=== PATIENT | female | born 1980 | race Caucasian/White ===

== ENCOUNTER 2020-09-17 22:00 | Emergency (ER) | payer MEDICARE, MEDICAID, SELFPAY ==
[2020-09-17 22:01] VITALS: BP 127/78; PULSE 80; RESP 18; TEMP 36.7; O2SAT 99
[2020-09-17 22:08] VITALS: BP 127/78; PULSE 80; RESP 18; TEMP 36.7; O2SAT 99
--- NOTE | 2020-09-17 22:15 | PC.NURSE ---
pt c/o pain to left wrist with movement without any known injury. pt has full ROM of left wrist, but reports pain is 10/10 . no s/s of distress. no visible discoloration, edema, or deformity noted to left wrist or hand by this RN. pt reports she has been taking 400mg ibuprofen without relief and has not told her pcp about her wrist pain. awaiting further instructions.
--- NOTE | 2020-09-17 22:34 | ED.UPPEXIN ---
HPI - Extremity Injury (Upper) General Chief Complaint: Extremity Injury, Upper Stated Complaint: left wrist pain Time Seen by Provider: 09/17/20 22:29 Source: patient Mode of arrival: ambulatory Limitations: no limitations History of Present Illness HPI narrative: Patient is a 39-year-old female complaining of left wrist pain, 6 out of 10, aching, worse with movement that started 4 days ago. Patient denies any direct injury to the wrist. Patient denies any redness or swelling. Related Data Allergies Allergy/AdvReac Type Severity Reaction Status Date / Time Penicillins Allergy Mild Unknown Verified 09/17/20 22:04 Review of Systems Review of Systems: All systems reviewed & are unremarkable except as noted in HPI and below PMFSH Past Medical History Medical History Anxiety Bipolar disorder Kidney stone Manic depressive disorder Sleep disorder UTI (urinary tract infection) Surgical History Surgical History History of cervical biopsy Social History Social History Additional smoking assessment comments: 1/2 PPD Comments Social history: 1/2 pack/day smoker, no EtOH or drug use Family history: Noncontributory Exam Const: General: no acute distress and alert Orientation/consciousness: patient oriented x3 HENMT: Head: normal to inspection Extrem: General: normal to inspection and no clubbing, cyanosis or edema Other: Negative for any wrist deformity, swelling or redness. Pain on palpation of the wrist. Pain on range of motion of the wrist. Neurovascular is intact Course Vital Signs Vital signs: Vital Signs Temperature 36.7 C 09/17/20 22:01 Pulse Rate 80 09/17/20 22:01 Respiratory Rate 18 09/17/20 22:01 Blood Pressure 127/78 09/17/20 22:01 Pulse Oximetry 99 09/17/20 22:01 Temperature 36.7 C 09/17/20 22:08 Pulse Rate 80 09/17/20 22:08 Respiratory Rate 18 09/17/20 22:08 Blood Pressure 127/78 09/17/20 22:08 Pulse Oximetry 99 09/17/20 22:08 Discharge Plan Discharge Clinical Impression: Sprain and strain of wrist Patient Disposition: Home, Self-Care Condition: Stable Instructions: Wrist Sprain (ED) Prescriptions: No Action ondansetron HCl [Zofran] 4 mg tablet 4 mg PO Q6H PRN (Reason: nausea and vomiting) Qty: 10 RF: 0 Follow-up/Referrals: PHYSICIAN,SENIOR QUALITY ANALYST [Primary Care Provider] - Time of Disposition: 22:37
[2020-09-17] MEDS: IBUPROFEN 400 MG TABLET 800 MG PO (23:29)
== END 2020-09-17 23:31 | disposition home or self-care (01) ==
PROVIDERS: Emergency Provider Emergency Medicine
DX: S63.502A Unspecified sprain of left wrist, initial encounter (principal); F41.9 Anxiety disorder, unspecified; F31.9 Bipolar disorder, unspecified; Z87.442 Personal history of urinary calculi; X58.XXXA Exposure to other specified factors, initial encounter
CPT/HCPCS: 99282; A9270

== ENCOUNTER 2021-06-02 23:18 | Emergency (ER) | payer OTHER, SELFPAY ==
[2021-06-02 23:29] VITALS: BP 128/80; PULSE 89; RESP 18; TEMP 36.7; O2SAT 100
[2021-06-03 02:15] VITALS: BP 124/50; PULSE 82; RESP 18; TEMP 37; O2SAT 98
[2021-06-03] MEDS: SODIUM CHLORIDE 0.9% IV 1,000 ML 999 ML IV CONT (02:58)
[2021-06-03 03:12] LABS: Basophils Absolute Auto 0.1 K/mm3 (0.0-0.1); Basophils Percent Auto 0.9 % (0.2-1.2); Eosinophils Percent Auto 0.2 % (0-4.4); Hemoglobin 14.1 g/dL (12.0-15.0); Immature Granulocyte Absolute 0.08 K/mm3 (0.00-0.031); Immature Granulocyte Percent A 0.7 % (0-0.5); Lymphocytes Absolute Auto 1.53 K/mm3 (0.9-3.2); Lymphocytes Percent Auto 12.8 % (18.3-44.2); Mean Corpuscular HGB Conc 33.6 g/dl (32-36); Mean Corpuscular Hemoglobin 29.8 pg (26-34); Mean Corpuscular Volume 88.8 fl (80-100); Mean Platelet Volume 8.7 fl (7.4-10.4); Monocytes Absolute Auto 0.3 K/mm3 (0.1-0.6); Monocytes Percent Auto 2.4 % (2.6-8.5); Neutrophils Absolute Auto 9.9 K/mm3 (1.3-6.7); Platelet Count Result 393 k/mm3 (150-375); Red Blood Count 4.73 M/mm3 (4.2-5.4); Red Cell Distribution Width 12.8 % (11.5-14.5); White Blood Count 11.9 K/mm3 (4.5-10.0)
[2021-06-03 03:19] LABS: Add Urine Microscopic? YES; Appearance Urine Clear (Clear); Bacteria Urine Trace /hpf; Bilirubin Urine Negative (Negative); Blood Urine 2+ (Negative); Color Urine Yellow (Yellow); Glucose Urine UA Negative (Negative); Ketones Urine Negative (Negative); Leukocyte Esterase Ur Negative LEU/UL (Negative); Mucus Urine Heavy /lpf; Nitrate Urine Negative (Negative); Protein Urine Negative (Negative); Specific Grav Ur 1.013 (1.001-1.035); Squamous Epithelial Cell Urine Few /hpf (Few); Urobilinogen Urine Negative mg/dL (<2.0); WBC Urine 0-3 /hpf
[2021-06-03] MEDS: PROCHLORPERAZINE EDISYLATE 10 MG/2 ML VIAL IV PUSH (03:20)
[2021-06-03] MEDS: diphenhydrAMINE HCl INJ 50 MG/ML VIAL 25 MG IV PUSH (03:20)
[2021-06-03] MEDS: KETOROLAC 15 MG/ML VIAL (*BKC) IV PUSH (03:20)
--- NOTE | 2021-06-03 03:21 | ED.HA ---
HPI - Headache General Chief Complaint: Headache Stated Complaint: headache Time Seen by Provider: 06/03/21 02:16 Source: patient History of Present Illness HPI Narrative: Patient presents with headache. She has had a headache for the past day. Reports has had increasing headaches over the past couple years last time she had a headache like this was 1 to 2 weeks ago resolved with rest at home this 1 did not appear to be resolving so she came to the ER for evaluation. Headache was slow in onset getting progressively worse she is attempted Tylenol and ice packs without relief. She denies any focal numbness or weakness denies any trauma or recent spinal instrumentation. She reports her headache is worsened by bright light and loud noises. Denies history of IV drug use Related Data Allergies Allergy/AdvReac Type Severity Reaction Status Date / Time Penicillins Allergy Mild Unknown Verified 06/02/21 23:33 Review of Systems Review of Systems: CONSTITUTIONAL: Denies fever, chills, or sweats. EYES: Denies visual changes, redness, or discharge. ENT: Denies rhinorrhea, congestion, sore throat, or otalgia. CARDIOVASCULAR: Denies chest pain, palpitations, or edema. RESPIRATORY: Denies cough or dyspnea. GASTROINTESTINAL: Denies abdominal pain,vomiting, or diarrhea. GENITOURINARY: Denies dysuria or hematuria. SKIN: Denies rash or itching. MUSCULOSKELETAL: Denies back pain, joint pain, or myalgia. NEUROLOGIC: Denies numbness, dizziness, or weakness. PSYCHIATRIC: Denies anxiety or depression. All systems reviewed & are unremarkable except as noted in HPI and below PMFSH Past Medical History Medical History Anxiety Bipolar disorder Kidney stone Manic depressive disorder Sleep disorder UTI (urinary tract infection) Surgical History Surgical History History of cervical biopsy Social History Social History Additional smoking assessment comments: 1/2 PPD Exam Narrative: GENERAL: Well-appearing, well-nourished, and in no acute distress. HEAD: Normocephalic, atraumatic. EYES: PERRLA and EOMI. ENT: Nares clear, no rhinorrhea or epistaxis. Mucous membranes moist. NECK: Supple. No masses. No JVD CHEST: Clear to auscultation. No respiratory distress. No wheezes rales or rhonchi HEART: Regular rate and rhythm. No murmur heard. Normal peripheral pulses. ABDOMEN: Soft, nontender, nondistended, normal active bowel sounds. EXTREMITIES: Normal range of motion. No edema. SKIN: Warm, dry, no rash. NEURO: Cranial nerves II through XII are intact patient has 5 out of 5 strength in all extremities sensation intact to light touch in all extremities alert and oriented x3. PSYCH: Normal mood and affect. Course Reevaluation(s) Reevaluation #1: Patient is resting comfortably reports feeling much improved patient is comfortable managing her symptoms at home Date: 06/03/21 Time: 04:34 Vital Signs Vital signs: Vital Signs Temperature 36.7 C 06/02/21 23:29 Pulse Rate 89 06/02/21 23:29 Respiratory Rate 18 06/02/21 23:29 Blood Pressure 128/80 06/02/21 23:29 Pulse Oximetry 100 06/02/21 23:29 Temperature 37.0 C 06/03/21 02:15 Pulse Rate 96 06/03/21 04:50 Respiratory Rate 18 06/03/21 04:50 Blood Pressure 134/76 06/03/21 04:50 Pulse Oximetry 99 06/03/21 04:50 MDM - Headache MDM Narrative Medical decision making narrative: H&P as above, vss, pt looks clinically well, exam without focal neurological deficits, labs clinically unremarkable, labs/img considered, symptomatic relief available as needed, on reevaluation pt continues to looks clinically well. Suspect migraine, dns intracranial hemorrhage, meningitis, encephalitis. plan to tx/monitor as op w/ pcm f/u findings/plan discussed with pt, pt agree/comfortable with plan, return precautions given, medica
[2021-06-03 03:23] LABS: Alanine Aminotransferase 20 U/L (4-35); Albumin Level 4.6 g/dL (3.5-5.1); Alkaline Phosphatase 83 U/L (38-126); Anion Gap 7 mmol/L (8-16); Aspartate Amino Transferase 24 U/L (14-36); Bilirubin,Total 0.6 mg/dL (0.2-1.3); Blood Urea Nitrogen 11 mg/dL (7-17); Calcium 9.3 mg/dL (8.4-10.2); Carbon Dioxide 23 mmol/L (22-30); Chloride 106 mmol/L (98-107); Estimated CRCL calculation 94 ml/min; Estimated Glomerular Filt Rate > 60; Glucose 129 mg/dL (65-110); Potassium 3.9 mmol/L (3.4-5.0); Sodium 136 mmol/L (137-145)
[2021-06-03 04:50] VITALS: BP 134/76; PULSE 96; RESP 18; O2SAT 99
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
== END 2021-06-03 04:45 | disposition home or self-care (01) ==
PROVIDERS: Emergency Provider Emergency Medicine
DX: R51.9 Headache, unspecified (principal); G47.9 Sleep disorder, unspecified; Z87.442 Personal history of urinary calculi; Z87.440 Personal history of urinary (tract) infections; F17.210 Nicotine dependence, cigarettes, uncomplicated
CPT/HCPCS: 36415; 80053; 81001; 85025; 96361; 96365; 96375; 99284; J0131; J0780; J1200; J1885; J7030

== ENCOUNTER 2021-06-03 05:25 | Emergency (ER) | payer OTHER, SELFPAY ==
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
[2021-06-03 05:23] VITALS: BP 142/93; PULSE 85; RESP 16; TEMP 36.1; O2SAT 97
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
[2021-06-03 07:12] VITALS: BP 117/70; PULSE 97; RESP 18; O2SAT 100
== END 2021-06-03 07:14 | disposition home or self-care (01) ==
PROVIDERS: Emergency Provider Emergency Medicine
DX: S02.2XXA Fracture of nasal bones, initial encounter for closed fracture (principal); S00.31XA Abrasion of nose, initial encounter; Z87.442 Personal history of urinary calculi; Z87.440 Personal history of urinary (tract) infections; G47.9 Sleep disorder, unspecified; M47.812 Spondylosis without myelopathy or radiculopathy, cervical region; V47.6XXA Car passenger injured in collision with fixed or stationary object in traffic accident, initial encounter
CPT/HCPCS: 70450; 70486; 72125; 99284

== ENCOUNTER 2022-11-09 00:54 | Emergency (ER) | payer OTHER, SELFPAY ==
[2022-11-09 00:58] VITALS: BP 152/89; PULSE 76; RESP 20; TEMP 36.4; O2SAT 100
--- NOTE | 2022-11-09 01:09 | ED.GENADULT ---
HPI - General Adult General Chief complaint: Headache Stated complaint: CUADRA Time Seen by Provider: 11/09/22 01:05 History of Present Illness HPI narrative: Patient 41-year-old female who presents emergency department with chief complaint of headache patient reports that around 3 PM she started having a headache today reports that the light bothers her eyes and reports she is having nausea patient reports that she has no weakness in her arms or legs denies changes in vision denies focal neurological deficit. The patient reports this is not the worst headache of her life reports that she has had worse headaches that were treated with medications at our facility previously Related Data Allergies Allergy/AdvReac Type Severity Reaction Status Date / Time Penicillins Allergy Mild Unknown Verified 11/09/22 01:01 Review of Systems Review of Systems: A 10 system review of systems was completed on the patient and is negative except for what is stated in the HPI. Nursing and ancillary documentation was reviewed. [facility] Past Medical History Medical History Anxiety Bipolar disorder Kidney stone Manic depressive disorder Sleep disorder UTI (urinary tract infection) Surgical History Surgical History History of cervical biopsy Social History Social History Additional smoking assessment comments: 1/2 PPD Exam Narrative: GENERAL: Well-appearing, well-nourished, and in no acute distress. HEAD: Normocephalic, atraumatic. EYES: PERRLA and EOMI. ENT: Nares clear, no rhinorrhea or epistaxis. Mucous membranes moist. NECK: Supple. CHEST: Clear to auscultation. No respiratory distress. HEART: Regular rate and rhythm. No murmur heard. Normal peripheral pulses. ABDOMEN: Soft, nontender, nondistended, normal active bowel sounds. EXTREMITIES: Normal range of motion. No edema. SKIN: Warm, dry, no rash. NEURO: No focal deficits. Alert and oriented x3. PSYCH: Normal mood and affect. Course Vital Signs Vital signs: Vital Signs Temperature 36.4 C L 11/09/22 00:58 Pulse Rate 76 11/09/22 00:58 Respiratory Rate 20 11/09/22 00:58 Blood Pressure 152/89 H 11/09/22 00:58 Pulse Oximetry 100 11/09/22 00:58 Oxygen Delivery Room Air 11/09/22 00:58 Temperature 36.4 C L 11/09/22 00:58 Pulse Rate 76 11/09/22 00:58 Respiratory Rate 20 11/09/22 00:58 Blood Pressure 152/89 H 11/09/22 00:58 Pulse Oximetry 100 11/09/22 00:58 Oxygen Delivery Room Air 11/09/22 00:58 Medical Decision Making [facility] Narrative Medical decision making narrative: Differential diagnosis includes migraine headache, tension headache, Patient's exam does not show any focal neurological deficits therefore the risk of subarachnoid hemorrhage or intracranial hemorrhage is extremely low at this point is also not the patient's worst headache of her life and reports is similar to whenever she has been treated for migraines in the past patient will receive a standard migraine cocktail of Compazine Benadryl Toradol and IV fluids Vital Signs Vital Signs: Vital Signs Temperature 36.4 C L 11/09/22 00:58 Pulse Rate 76 11/09/22 00:58 Respiratory Rate 20 11/09/22 00:58 Blood Pressure 152/89 H 11/09/22 00:58 Pulse Oximetry 100 11/09/22 00:58 Oxygen Delivery Room Air 11/09/22 00:58 Temperature 36.4 C L 11/09/22 00:58 Pulse Rate 76 11/09/22 00:58 Respiratory Rate 20 11/09/22 00:58 Blood Pressure 152/89 H 11/09/22 00:58 Pulse Oximetry 100 11/09/22 00:58 Oxygen Delivery Room Air 11/09/22 00:58 Discharge Plan Discharge Clinical Impression: Headache Patient Disposition: Home, Self-Care Condition: Stable Instructions: Antibiotic Form, Acute Headache (ED) Prescriptions: No Action ondansetron H
[2022-11-09] MEDS: SODIUM CHLORIDE 0.9% IV 1,000 ML 999 ML IV CONT (01:19)
[2022-11-09] MEDS: diphenhydrAMINE HCl INJ 50 MG/ML VIAL IV PUSH (01:21)
[2022-11-09] MEDS: KETOROLAC 30 MG/ML VIAL (*BKC) IV PUSH (01:21)
[2022-11-09] MEDS: PROCHLORPERAZINE EDISYLATE 10 MG/2 ML VIAL IV PUSH (01:21)
== END 2022-11-09 02:30 | disposition home or self-care (01) ==
PROVIDERS: Emergency Provider Emergency Medicine
DX: R51.9 Headache, unspecified (principal); F17.210 Nicotine dependence, cigarettes, uncomplicated
CPT/HCPCS: 96361; 96374; 96375; 99284; J0780; J1200; J1885; J7030

== ENCOUNTER 2024-01-02 23:23 | Emergency (ER) | payer OTHER, SELFPAY ==
[2024-01-02 23:29] VITALS: BP 146/85; PULSE 89; RESP 18; TEMP 36.8; O2SAT 98
--- NOTE | 2024-01-03 00:14 | ED.HA ---
HPI - Headache General Chief Complaint: Headache Stated Complaint: headache Time Seen by Provider: 01/02/24 23:59 Source: patient Mode of arrival: ambulatory Limitations: no limitations History of Present Illness HPI Narrative: Patient is a 43-year-old female report of a migraine headache. Patient reports she developed a headache around 1:00 p.m. today. She states she took Tylenol around that time but denied improvement. The headache became more intense around 8:00 p.m.. Unable to find any relief which prompted her to present here. She does have history of migraines and states current headache feels similar. Reports nausea, vomiting, photophobia, phonophobia. Denied neck pain/stiffness, fevers. Denies cough or cold symptoms. Denies numbness, weakness, confusion, dizziness. Related Data Allergies Allergy/AdvReac Type Severity Reaction Status Date / Time Penicillins Allergy Mild Unknown Verified 11/09/22 01:01 Review of Systems Review of Systems: All systems reviewed & are unremarkable except as noted in HPI. All systems reviewed & are unremarkable except as noted in HPI and below PMFSH Past Medical History Medical History Anxiety Bipolar disorder Kidney stone Manic depressive disorder Sleep disorder UTI (urinary tract infection) Surgical History Surgical History History of cervical biopsy Social History Social History Additional smoking assessment comments: 1/2 PPD Exam Narrative: GENERAL: Well appearing, well-nourished, non-toxic, in no acute distress. HEAD: Normocephalic, atraumatic. EYES: PERRL/EOMI, conjunctivae clear bilaterally. No nystagmus. NECK: Supple. No meningeal signs. RESPIRATORY: Airway patent, respirations nonlabored. Clear to auscultation bilaterally, no rales, rhonchi, wheezing. CARDIOVASCULAR: Regular rate and rhythm MUSCULOSKELETAL: Moves all extremities. No gross deformities. SKIN: Warm, dry, normal color. No rashes. NEURO: A&O X3. Speech clear. Follows commands. CN II-XII intact. Sensation grossly intact. Steady gait. No ataxic movements. PSYCHIATRIC: Appropriate mood and affect. Normal interaction. Course Vital Signs Vital signs: Vital Signs Temperature 98.2 F 01/02/24 23:29 Pulse Rate 89 01/02/24 23:29 Respiratory Rate 18 01/02/24 23:29 Blood Pressure 146/85 H 01/02/24 23:29 Pulse Oximetry 98 01/02/24 23:29 Oxygen Delivery Room Air 01/02/24 23:29 Temperature 98.2 F 01/02/24 23:29 Pulse Rate 89 01/02/24 23:29 Respiratory Rate 18 01/02/24 23:29 Blood Pressure 146/85 H 01/02/24 23:29 Pulse Oximetry 98 01/02/24 23:29 Oxygen Delivery Room Air 01/02/24 23:29 MDM - Headache MDM Narrative Medical decision making narrative: Patient's headache was not sudden in onset or maximal in severity. There are no focal neurological deficits on exam. Subarachnoid hemorrhage is felt to be unlikely at this time. There is no history of fever and neck is supple on evaluation without meningeal signs. Meningitis is felt to be unlikely. No traumatic history or signs of trauma on evaluation. No vision changes or ocular signs of acute glaucoma. Patient feeling much better after migraine cocktail. Patient's headache is felt to be benign cephalgia and reasonable for further outpatient management. Advised patient to follow with PCP for further evaluation. Advised to continue Tylenol/ibuprofen at home, low light/low stimulus environment, stay well hydrated. She was given return precautions. She agrees with plan feels comfortable w/ discharge home. Discharged in stable condition. Medical Records Attestation: I reviewed the patient's medical records. Discharge Plan Discharge Clinical Impression: Migraine Qualifiers: Migraine type: unspecified Status migrainosus presence: dyan
[2024-01-03] MEDS: SODIUM CHLORIDE 0.9% IV 1,000 ML 999 ML IV CONT (00:34)
[2024-01-03] MEDS: ACETAMINOPHEN 500 MG TABLET 1000 MG PO (00:35)
[2024-01-03] MEDS: diphenhydrAMINE HCl INJ 50 MG/ML VIAL 25 MG IV PUSH (00:35)
[2024-01-03] MEDS: METOCLOPRAMIDE HCL INJ 10 MG/2 ML VIAL IV PUSH (00:35)
[2024-01-03] MEDS: KETOROLAC 30 MG/ML VIAL (*BKC) IV PUSH (00:35)
[2024-01-03 03:20] VITALS: BP 136/80; PULSE 80; RESP 18; O2SAT 100
[2024-01-03] MEDS: dexAMETHasone SOD PHOS INJ 10 MG/ML 1 ML VIAL IV PUSH (03:23)
== END 2024-01-03 03:25 | disposition home or self-care (01) ==
PROVIDERS: Emergency Provider Physician Assistant
DX: G43.909 Migraine, unspecified, not intractable, without status migrainosus (principal); F41.9 Anxiety disorder, unspecified; F31.9 Bipolar disorder, unspecified; Z87.442 Personal history of urinary calculi; Z87.440 Personal history of urinary (tract) infections
CPT/HCPCS: 96361; 96374; 96375; 99284; A9270; J1100; J1200; J1885; J2765; J7030

== ENCOUNTER 2024-04-07 23:07 | Emergency (ER) | payer OTHER, SELFPAY ==
[2024-04-07 23:32] VITALS: BP 148/91; PULSE 100; RESP 16; TEMP 36.6; O2SAT 100
[2024-04-08 03:38] VITALS: BP 140/74; PULSE 88; RESP 20; TEMP 36.6; O2SAT 98
--- NOTE | 2024-04-08 03:41 | PC.NURSE ---
Pt c/o liquid diarrhea and a fever on and off since Wednesday. She states starting today she has had a headache, nausea and she just feels sick
--- NOTE | 2024-04-08 04:16 | PC.NURSE ---
Attempted to insert IV and obtain blood work. On first attempt vein blew. Pt states she wants her friend in the room at the bedside before she is stuck again. Pt waiting for friend to come back to room at this time
--- NOTE | 2024-04-08 04:33 | ED.GENADULT ---
HPI - General Adult General Chief complaint: Headache Stated complaint: headache, n/v Time Seen by Provider: 04/08/24 03:53 History of Present Illness HPI narrative: Patient 33-year-old female presents emergency department with chief complaint of headache. Patient reports that last couple days she has had headache hot flashes and nausea the patient also reports that she has had some chills and body aches reports that she has been more anxious than normal patient has prior history of bipolar disorder anxiety Related Data Allergies Allergy/AdvReac Type Severity Reaction Status Date / Time Penicillins Allergy Mild Unknown Verified 11/09/22 01:01 Review of Systems Review of Systems: A 10 system review of systems was completed on the patient and is negative except for what is stated in the HPI. Nursing and ancillary documentation was reviewed. [facility] Past Medical History Medical History Anxiety Bipolar disorder Kidney stone Manic depressive disorder Sleep disorder UTI (urinary tract infection) Surgical History Surgical History History of cervical biopsy Social History Social History Additional smoking assessment comments: 1/2 PPD Exam Narrative: GENERAL: Well-appearing, well-nourished, and in no acute distress. HEAD: Normocephalic, atraumatic. EYES: PERRLA and EOMI. ENT: Nares clear, no rhinorrhea or epistaxis. Mucous membranes moist. NECK: Supple. CHEST: Clear to auscultation. No respiratory distress. HEART: Regular rate and rhythm. No murmur heard. Normal peripheral pulses. ABDOMEN: Soft, nontender, nondistended, normal active bowel sounds. EXTREMITIES: Normal range of motion. No edema. SKIN: Warm, dry, no rash. NEURO: No focal deficits. Alert and oriented x3. PSYCH: Normal mood and affect. Course Vital Signs Vital signs: Vital Signs Temperature 36.6 C 04/07/24 23:32 Pulse Rate 100 04/07/24 23:32 Respiratory Rate 16 04/07/24 23:32 Blood Pressure 148/91 H 04/07/24 23:32 Pulse Oximetry 100 04/07/24 23:32 Oxygen Delivery Room Air 04/07/24 23:32 Temperature 36.6 C 04/08/24 03:38 Pulse Rate 88 04/08/24 03:38 Respiratory Rate 20 04/08/24 03:38 Blood Pressure 140/74 04/08/24 03:38 Pulse Oximetry 98 04/08/24 03:38 Oxygen Delivery Room Air 04/07/24 23:32 Medical Decision Making MDM Narrative Medical decision making narrative: Differential diagnosis includes upper respiratory infection, viral illness, migraine headache COVID flu RSV were negative Laboratory studies were obtained on the patient showed normal CBC normal cm COVID flu RSV were negative Vital Signs Vital Signs: Vital Signs Temperature 36.6 C 04/07/24 23:32 Pulse Rate 100 04/07/24 23:32 Respiratory Rate 16 04/07/24 23:32 Blood Pressure 148/91 H 04/07/24 23:32 Pulse Oximetry 100 04/07/24 23:32 Oxygen Delivery Room Air 04/07/24 23:32 Temperature 36.6 C 04/08/24 03:38 Pulse Rate 88 04/08/24 03:38 Respiratory Rate 20 04/08/24 03:38 Blood Pressure 140/74 04/08/24 03:38 Pulse Oximetry 98 04/08/24 03:38 Oxygen Delivery Room Air 04/07/24 23:32 Lab Data 04/08/24 05:05 04/08/24 05:05 Labs: Lab Results 04/08/24 Range/Units 05:05 WBC 10.0 (4.5-10.0) K/mm3 RBC 5.39 (4.2-5.4) M/mm3 Hgb 15.6 H (12.0-15.0) g/dL Hct 46.9 (37.0-47.0) % MCV 87.0 (80-100) fl MCH 28.9 (26-34) pg MCHC 33.3 (32-36) g/dl RDW 12.3 (11.5-14.5) % Plt Count 343 (150-375) k/mm3 MPV 9.1 (7.4-10.4) fl Immature Gran % (Auto) 0.4 (0-0.5) % Neut % (Auto) 79.3 H (45.5-73.1) % Lymph % (Auto) 13.5 L (18.3-44.2) % [place] % (Auto) 6.0 (2.6-8.5) % Eos % (Auto) 0.1 (0-4.4) % Baso % (Auto) 0.7 (0.2-1.2) % Lymph # (Auto) 1.35 (0.9-3.2) K/mm3 [place] # (Auto) 0.6 (0.1-0.6) K/mm3 Eos # (Auto) 0.0 (0-0.3) K/mm3 Baso # (Auto) 0.1 (0.0-0.1) K/mm3 Abs Immat Gran (auto) 0.04 H (0.00-0.031) K/mm3 Absolute Neuts (auto) 7.9 H (1.3-6.7) K/mm3 Absolute Nucleated RBC 0.000 (0.0-0.012) K/mm3 Nucleated RBC % 0.0 (0.0-0.2) % Sodium 138 (137-145) mmol/L Potassium 3.8 (3.4-5.0) mmol/L Chloride 102 (98-107) mmol/L Carbon Dioxide 27 (22-30) mmol/L Anion Gap 9 (4-12) mmol/L BUN 11 (7-17) mg/dL Creatinine 0.80 (0.7-1.0) mg/dL Estim Creat Clear Calc 70 ml/min Estimated GFR > 60 (59 - ) Glucose 133 H (65-110) mg/dL Calcium 9.6 (8.4-10.2) mg/dL Total Bilirubin 0.6 (0.2-1.3) mg/dL AST 25 (14-36) U/L ALT 23 (6-35) U/L Alkaline Phosphatase 123 (38-126) U/L Total Protein 9.0 H (6.3-8.2) g/dL Albumin 4.9 (3.5-5.1) g/dL Lipase 72 (23-300) U/L Influenza A (RT-PCR) Negative (Negative) Influenza B (RT-PCR) Negative (Negative) RSV (RT-PCR) Negative (Negative) SARS-CoV-2 RNA (RT-PCR) Negative (Negative) Discharge Plan Discharge Clinical Impression: Headache Patient Disposition: Home, Self-Care Condition: Stable Instructions: Antibiotic Form, Acute Headache (ED) Prescriptions: No Action ondansetron HCl [Zofran] 4 mg tablet 4 mg PO Q6H PRN (Reason: nausea and vomiting) Qty: 10 0RF ondansetron 4 mg tablet,disintegrating 4 mg PO Q8H PRN (Reason: nausea and vomiting) Qty: 15 0RF Follow-up/Referrals: Leo Flores MD [Physician] - UNKNOWN,DOCTOR [Primary Care Provider] - Time of Disposition: 06:12
--- NOTE | 2024-04-08 04:53 | PC.NURSE ---
Attempted a second time for IV, IV blew. Charge nurse Kim says she will attempt to obtain IV access and obtain blood work
--- NOTE | 2024-04-08 05:07 | PC.NURSE ---
labs and covid sent to laboratory at this time.
[2024-04-08 05:12] LABS: Basophils Absolute Auto 0.1 K/mm3 (0.0-0.1); Basophils Percent Auto 0.7 % (0.2-1.2); Eosinophils Percent Auto 0.1 % (0-4.4); Hematocrit 46.9 % (37.0-47.0); Hemoglobin 15.6 g/dL (12.0-15.0); Immature Granulocyte Absolute 0.04 K/mm3 (0.00-0.031); Immature Granulocyte Percent A 0.4 % (0-0.5); Lymphocytes Absolute Auto 1.35 K/mm3 (0.9-3.2); Lymphocytes Percent Auto 13.5 % (18.3-44.2); Mean Corpuscular HGB Conc 33.3 g/dl (32-36); Mean Corpuscular Hemoglobin 28.9 pg (26-34); Mean Platelet Volume 9.1 fl (7.4-10.4); Monocytes Absolute Auto 0.6 K/mm3 (0.1-0.6); Neutrophils Absolute Auto 7.9 K/mm3 (1.3-6.7); Neutrophils Percent Auto 79.3 % (45.5-73.1); Platelet Count Result 343 k/mm3 (150-375); Red Blood Count 5.39 M/mm3 (4.2-5.4); Red Cell Distribution Width 12.3 % (11.5-14.5)
[2024-04-08] MEDS: LORazepam INJ (*CRX) 2 MG/ML VIAL 1 MG IV PUSH (05:13)
[2024-04-08] MEDS: diphenhydrAMINE HCl INJ 50 MG/ML VIAL IV PUSH (05:13)
[2024-04-08] MEDS: PROCHLORPERAZINE EDISYLATE 10 MG/2 ML VIAL IV PUSH (05:14)
[2024-04-08] MEDS: SODIUM CHLORIDE 0.9% IV 1,000 ML 999 ML IV CONT (05:14)
--- NOTE | 2024-04-08 05:15 | PC.NURSE ---
pt says she does not have to use the restroom at this time but says she will give a urine sample as soon as she can
[2024-04-08 05:22] LABS: Alanine Aminotransferase 23 U/L (6-35); Albumin Level 4.9 g/dL (3.5-5.1); Alkaline Phosphatase 123 U/L (38-126); Anion Gap 9 mmol/L (4-12); Aspartate Amino Transferase 25 U/L (14-36); Bilirubin,Total 0.6 mg/dL (0.2-1.3); Blood Urea Nitrogen 11 mg/dL (7-17); Calcium 9.6 mg/dL (8.4-10.2); Carbon Dioxide 27 mmol/L (22-30); Chloride 102 mmol/L (98-107); Estimated CRCL calculation 70 ml/min; Estimated Glomerular Filt Rate > 60; Glucose 133 mg/dL (65-110); Lipase 72 U/L (23-300); Potassium 3.8 mmol/L (3.4-5.0); Sodium 138 mmol/L (137-145)
[2024-04-08 05:46] LABS: Influenza A QL RT-PCR Negative (Negative); Influenza B QL RT-PCR Negative (Negative); RSV RNA, RT-PCR Negative (Negative); SARS-CoV-2 RNA PCR Negative (Negative)
[2024-04-08 06:31] VITALS: BP 142/80; PULSE 76; RESP 16; O2SAT 100
== END 2024-04-08 06:32 | disposition home or self-care (01) ==
PROVIDERS: Emergency Provider Emergency Medicine
DX: R51.9 Headache, unspecified (principal); F41.8 Other specified anxiety disorders; Z20.822 Contact with and (suspected) exposure to COVID-19
CPT/HCPCS: 36415; 80053; 83690; 85025; 87637; 96361; 96374; 96375; 99284; J0780; J1200; J2060; J7030

== ENCOUNTER 2024-09-25 14:00 | Emergency (ER) | payer OTHER, SELFPAY ==
--- NOTE | ~2024-09-25 | CT_ITS ---
CT brain wo con Ordering provider: Jeri Awad APRN History: 43 years Female with . headache . Comparison: None. Technique: CT of the head without contrast. Radiation reduction technique utilized. The dose-length product was 908 mGy-cm. FINDINGS: BRAIN PARENCHYMA AND CSF SPACES: No midline shift, mass effect or hemorrhage. The brain parenchyma a nd CSF spaces are otherwise normal. VISUALIZED PARANASAL SINUSES: Well aerated. MASTOIDS: Well aerated. BONES: The bones appear intact. SOFT TISSUES: Visualized nasopharynx is normal. Superficial soft tissues are normal. IMPRESSION: No acute intracranial findings. Reviewed, dictated and finalized at location A.
--- OUTSIDE RECORDS SUMMARY | 2024-09-25 14:01 | XMS_ITS | Clinical Summary ---
Author Organization [facility] Address [address] [place] [address] Phone Care Team Providers Care Biopharmaceutical Rep Name Role Phone Selina Burrell APRN, MAUREEN Primary Care Provider + Maria Dolores Skelton MD Unavailable Allergies Active Allergy Reactions Criticality Noted Date Comments Penicillins Hives 05/25/2024 Medications ondansetron (ZOFRAN-ODT) 4 MG TABLET DISPERSIBLEIndi cations:Nausea and Vomiting Take 1 Tablet by mouth every 8 hours as needed for Nausea - 1st line. Indications: Nausea and Vomiting 10 Tablet 5 Active busPIRone HCl (BUSPAR) 30 MG Tablet Take 30 mg by mouth 2 times daily. Active hydrOXYzine (ATARAX) 50 MG Tablet Take 50 mg by mouth 3 times daily as needed. Active QUEtiapine (SEROquel) 100 MG Tablet Take 100 mg by mouth 2 times daily. Active traZODone (DESYREL) 150 MG Tablet Take 150 mg by mouth nightly. Active venlafaxine (EFFEXOR) 75 MG Tablet Take 75 mg by mouth 2 times daily. Active sertraline (ZOLOFT) 100 MG Tablet Take 100 mg by mouth 2 times daily. Active Empagliflozin (JARDIANCE) 10 MG Tablet Take 1 Tablet by mouth daily for 90 days. 90 Tablet 5 09/04/19 25 losartan (COZAAR) 50 MG Tablet Take 1 Tablet by mouth daily for 90 days. 90 Tablet 5 09/04/19 25 carvedilol (COREG) 3.125 MG Tablet Take 1 Tablet by mouth 2 times daily (with meals) for 90 days. 180 Tablet 5 09/04/19 25 spironolactone (ALDACTONE) 25 MG Tablet Take 1 Tablet by mouth daily for 90 days. 90 Tablet 5 09/04/19 25 Active Problems Problem Noted Date Diagnosed Date Cardiomyopathy 06/18/2024 HFrEF (heart failure with reduced ejection fract ion) 06/18/2024 Primary hypertension 06/18/2024 Nonrheumatic mitral valve regurgitation 06/18/19 25 Generalized anxiety disorder 05/26/2024 Tobacco user 05/26/2024 Anxiety 09/04/2013 Schizophrenia 09/04/2013 Bipolar 1 disorder Resolved Problems Problem Noted Date Diagnosed Date Resolved Date Acute hypoxic respiratory failure 05/26/2024 06/04/2024 Acute metabolic acidosis 05/26/202406/2024 Severe sepsis with septic shock (CODE) 05/26/2024 06/04/2024 Required emergent intubation 05/26/2024 06/04/2024 Community acquired pneumonia 05/25/2024 06/04/2024 Depression 05/26/2024 Encounters Date Type Department Care Team Description 07/07/2024 10:15 AM ANIMAL CONTROL SPECIALIST - 07/07/2024 12:03 PM ANIMAL CONTROL SPECIALIST Surgery [facility] Cardiac [employer]electric Component Machinist [address] [place] [address] Maria Dolores Skelton MD CARDIAC CATH 07/07/2024 7:40 AM ANIMAL CONTROL SPECIALIST - 07/07/2024 1:30 PM ANIMAL CONTROL SPECIALIST Hospital Encounter [facility] Cardiac [employer]electric [employer] Machin[facility] [address] [facility] [place] [address] Maria Dolores Skelton MD Tobacco user Discharge Disposition: Discharged to home or Selfcare 07/07/2024 Travel 07/04/2024 Telephone [facility] [address] [place] [address] Maria Dolores Skelton MD Follow-up; Appointment 06/29/2024 Telephone [facility] - Cardiology [facility] [address] [place] [address] Maria Dolores Skelton MD from Last 3 Months Family History Medical History Relation Name Comments No Known Problems Father Cancer Mother breast and bone Relation Name Status Comments Father Mother Social History Tobacco Use Types Packs/Day Years Used Date Smoking Tobacco: Every Day Cigarettes Smokeless Tobacco: Never Tobacco Cessation:Ready to Q uit: Not Asked; Counseling Given: Not Answered Alcohol Use Standard Drinks/Week Comments Never 0 (1 standard drink = 0.6 oz pur e alcohol) [facility] Utilities Answer Date Recorded In the past 12 months has th e efw-suhl, gas, oil, or water [employer] threatened to shut off services in your home? No 05/26/2024 Hunger Vital Sign Answer Date Recorded Within the past 12 months, y ou worried that your food would run out before you got the money to buy more. Never true 05/26/19 25 Within the past 12 months, t he food you bought just didn't last and you didn't have money to get more. Never true 05/26/2024 PRAPARE - Transportation Answer Date Re corded In the past 12 months, has l ack of transportation kept you from medical appointments or from getting medications? No 05/04 In the past 12 months, has l ack of transportation kept you from meetings, work, or from getting things needed for daily living? No 05/26/2024 Housing Stability Vital Sign Answer Florentino e Recorded In the last 12 months, was t here a time when you were not able to pay the mortgage or rent on time? No 05/26/2024 In the past 12 months, how m any times have you moved where you were living? 0 05/26/2024 At any time in the past 12 m [facility], were you homeless or living in a chcf (including now)? No 05/26/2024 Sexually Active Control Partners Comments Not Currently Implant esure Comments No Sex and Gender Information Value Date Recorded Sex Assigned at Not on file Legal Sex Female 5:10 PM ANIMAL CONTROL SPECIALIST Gender Identity Not on file Sexual Orientation Not on file Last Filed Vital Signs Vital Sign Reading Time Taken Comments Blood Pressure 128/69 07/07/2024 1:00 PM ANIMAL CONTROL SPECIALIST Pulse 72 07/07/2024 9:51 AM ANIMAL CONTROL SPECIALIST Temperature 36.8 C (98.3 F) 07/07/2024 8:05 AM ANIMAL CONTROL SPECIALIST Respiratory Rate 12 07/07/2024 1:00 PM ANIMAL CONTROL SPECIALIST Oxygen Saturation 96% 07/07/2024 1:00 PM ANIMAL CONTROL SPECIALIST Inhaled Oxygen Concentration - - Weight 74.7 kg (164 lb 11.2 oz) 07/07/2024 8:05 AM ANIMAL CONTROL SPECIALIST Height 165.1 cm (5' 5) 07/07/2024 8:05 AM ANIMAL CONTROL SPECIALIST Body Mass Index 27.41 07/07/2024 8:05 AM ANIMAL CONTROL SPECIALIST Plan of Treatment Upcoming Encounters Date Type Department Care Team (Late st Contact Info) Description 10/31/2024 4:30 PM CDT Office Visit [facility] - Cardiology - [facility] [address] [place] [address] Rehana Moss APRN, SPECIAL TRACKWORK [employer] [address] [place] [address] Health Maintenance Due Date Last Done Comments Hepatitis C Virus (HCV) Screening 1980 Mammogram 1980 Hepatitis B Immunization (1 of 3 - 19+ 3-dose series) 11/23/1998 Pap Smear 11/23/2000 Cervical Cancer Screening (CCS) 11/23/2009 HPV/Cotest 11/23/2009 Pneumococcal Immunization Combined (2 of 2 - PCV) 01/30/2015 01/30/2014 Discussion re Starting/Frequency of Mammograms 2019 SARS-COV-2 Immunization (3 - season) 2024 05/24/2021, 04/22/2021 Influenza Immunization (Season Ended) 2025 05/23/2022, 03/05/2020, 03/06/2019, Additional history exists Respiratory Syncytial Virus (RSV) Immunization (Adult) (1 - 1-dose 75+ series) 11/23/2054 TdaP Immunization Completed 01/22/2014 Human Papillomavirus (HPV) Immunization Aged Out No longer eligible based on patient's age to complete this topic Meningococcal Immunization (ACWY) Aged Out No longer eligible based on patient's age to complete this topic Rotavirus Immunization Aged Out No lo nger eligible based on patient's age to complete this topic Procedures Procedure Name Priority Date/Time Associated Diagnosis Comments CARDIAC CATH Routine 07/07/2024 9:53 AM ANIMAL CONTROL SPECIALIST Tobacco user Cardiomyopathy, unspecified type (HCC) HFrEF (heart failure with reduced ejection fraction) (HCC) Primary hypertension Nonrheumatic mitral valve regurgitation POCT URINE HCG () Routine 07/07/2024 7:55 AM ANIMAL CONTROL SPECIALIST from Last 3 Months Results * CARDIAC CATH (07/07/2024 9:53 AM ANIMAL CONTROL SPECIALIST) Anatomical Region Laterality Modality CARDIO N/A X-Ray Angiograph y Narrative 07/07/2024 10:01 AM ANIMAL CONTROL SPECIALIST Images from the original result were not included. POST-CARDIAC CATHETERIZATION PROCEDURE NOTE- [facility] PATIENT:Marah Suazo : 1980 DATE OF SERVICE: 07/07/24 Operators: Maria Dolores Skelton MD Indication: - cardiomyopathy, ischemic workup Procedures: - Coronary angiography - Left heart cath - Moderate sedation I performed moderate sedation using at least Versed 1 mg and fentanyl 50 mcg. I supervised and directed our R.N. who assisted in monitoring patient's level of consciousness and physiological status throughout the procedure. Sedation start time 9:41 a.m. Sedation end time 9:51 a.m. Total sedation time 10 minutes Contrast used 25 cc Findings: - LHC: Normal LVEDP, 9 mm Hg - Coronary angiogram: *Left main: 20% mild disease proximally *LAD: Mild 20% mid segment disease *Left circumflex: Minimal luminal irregularities *RCA: Mild 10-20% proximal to mid segment disease Impression: - mild nonobstructive CAD -normal LVEDP -nonischemic cardiomyopathy Access site/size(s) and vascular closure method: - right radial artery, 6 Ethiopian sheath, TR band Periprocedural Events: None Estimated blood loss: Minimal Recommendations: -Routine post cath care -Continue current GDMT for nonischemic cardiomyopathy with plan for repeat echo to assess LV function improvement/recovery - Follow up - Risk factor optimization Discharge: Same-day discharge, pending clinical course Maria Dolores Skelton MD, [facility] Interventional and Structural Cardiology [facility] Billing Adjudicatorpayloader operator [facility] [employer] Email: [email or web address] Office phone: [phone] [place] ([place]) Office: [phone] Maria Dolores Skelton MD IMG CARDIAC CAT H Final Result * POCT Urine HCG () (07/07/2024 7:55 AM ANIMAL CONTROL SPECIALIST) POC URINE Negative POC URINE CONTROL Remelt Sugar Boiler Pass Urine 07/07/2024 7:55 AM ANIMAL CONTROL SPECIALIST Maria Dolores Skelton MD POINT OF CARE T ESTING (MANUAL) Final Result from Last 3 Months Insurance MEDICARE C [facility] [employer] Advance Directives Documents on File Type Date Recorded Patient Hotel Service Manager Expl jin [place] Surrogate Physician Appointment 05/26/2024 10:54 AM HC-S[facility]ROGATE, 05/26/2024 * Full Code (Latest Code Status on File) Date Activated Date Inactivated Comments 05/26/2024 4:58 AM CPR-Full Treat ment: FULL ARREST: Attempt Resuscitation/CPR wit intubation and mechanical ventilation. PRE-ARREST: Use entire range of life support measures to stabilize the patient. Care Teams Biopharmaceutical Rep Relationship Specialty Start Date End Date Selina Burrell APRN, SPECIAL TRACKWORK [employer] [address] [place] [id number] PCP - General Family Medicine 05/25/24 Maria Dolores Skelton MD [address] [address] Consulting Physician Cardiology 06/19/24
--- OUTSIDE RECORDS SUMMARY | 2024-09-25 14:01 | XMS_ITS | Patient Health Record ---
Author Organization [facility] Address [address] [facility] [address] [place] [address] Care Team Providers Care Mechanical Handyman Name Role Phone Luis Boland Primary Care Provider Unavail able Allergies Allergen (clinical drug ingredient) Drug/Non Drug Allergy documented on EMR Reaction Allergy Type Onset Date Status Penicillin Unknown Drug Allergy Active Reason For Referral No Information Medications Medication SIG (Take, Route, Frequency, Duration) Notes Start Date End Date Status [place] 5/325 1 Tablet oral every 6 hrs for 05 days 05/11/2016 Active busPIRone HCl Active QUEtiapine Fumarate 100mg 1xday Active Sertraline HCl 100mg 2xday Act bello Venlafaxine HCl Acti ve hydrOXYzine HCl 50mg 3xday Act bello Social History Tobacco Use: Social History Observation Description Date Details (start date - stop date) Current Smoker NA - NA Tobacco Use/Smoking Question Answer Notes Are you a current smoker How often do you smoke cigarettes? every day How many cigarettes a day do you smoke? 11-20 How soon after you wake up d o you smoke your first cigarette? 6-30 minutes Are you interested in quitting? Not ready to guero t Additional Findings: Tobacco User Modera te cigarette smoker (10-19 cigs/day) Plan Of Treatment No Information Insurance Providers Payer Name Payer Address Payer Phone Subscriber Number Group Number Insured Name Patient Relationship to Insured Coverage Start Date Coverage End Date [employer] [place], [facility] [address] [place] [address] [id number] Marah Suazo Self - patient is the insured 6
--- OUTSIDE RECORDS SUMMARY | 2024-09-25 14:01 | XMS_ITS | CONTINUITY OF CARE DOCUMENT ---
Author Name kam humphrey Address Unknown Organization [facility] Address [address] [place] [address] Phone [phone] Care Team Providers Care Reducing System Operator Name Role Phone Mendy Maguire MD Unavailable [phone] Mendy Maguire MD Unavailable [phone] INSURANCE PROVIDERS Payer name Policy type / Coverage type [place] red republican ID [employer] Medicaid 1 [id number] [place] Medicare [id number]
--- OUTSIDE RECORDS SUMMARY | 2024-09-25 14:01 | XMS_ITS | Patient Health Record ---
Author Organization [facility] Address [address] [place] [address] Care Team Providers Care Township Supervisor Name Role Phone Graves Eliseo Primary Care Provider [phone] Habib, Arif Unavailable [phone] Allergies Allergen (clinical drug ingredient) Drug/Non Drug Allergy documented on EMR Reaction Allergy Type Onset Date Status Penicillin G Benzathine hives Drug Allergy Active Reason For Referral No Information Medications Medication SIG (Take, Route, Frequency, Duration) Notes Start Date End Date Status traZODone HCl 150 MG 1 tablet at bedtime Orally at night for 30 days Active Venlafaxine HCl 75 MG 1 tablet with food Orally twice a day for 30 days Active Influenza Vac Split Quad 0.5 ML as directed Intramuscular 03/05/2020 Un known Sertraline HCl 100 MG 1 tablet Orally tw ice a day for 30 days Active busPIRone HCl 30 MG 1 tablet Orally Twic e a day for 30 days Active QUEtiapine Fumarate 100 MG 1 tablet Orally twice daily for 30 days Active hydrOXYzine HCl 50 MG 1 tablet as needed for anxiety Orally every 6 hrs for 30 days Active Immunizations Vaccine Route Administration Date Status Comme nts FLU VAC NO PRSV 4VAL 6 mo+ IM Intramuscular 03/05/2020 Administered Patient tolerat ed well. VIS date 12/15/18. Social History Tobacco Use: Social History Observation Description Date Details (start date - stop date) Current Smoker NA - NA Sex Assigned At : Social History Observation Description Sex Assigned At Female Dont use, Tobacco Use/Smoking Question Answer Notes Are you a current smoker How many cigarettes a day do you smoke? 6-10 Alcohol Screen (Audit-C) Question Answer Notes Did you have a drink containing alcohol in the p ast year? No Tobacco Control (Standard) Question Answer Notes Tobacco use: Current smoker How often do you smoke cigarettes? Every day How many cigarettes a day do you smoke? 6-10 Problems Problem Type SNOMED Code ICD Code Onset Dates Problem Status W/U Status Risk Notes Problem Tobacco user (826327466) Nicotine dependence, unspecified, uncomplicated (F17.200) Active confirmed Problem Generalized anxiety disorder (95962941) Generalized anxiety disorder (F41.1) Active confirmed Problem Depression (300690999) Depression (F32.9) 0 Active confirmed Problem Anxiety (87260796) Anxiety (F41.9) Active confirmed Problem Bipolar 1 disorder (530561281) Bipolar 1 disorder (F31.9) 0 Active confirmed Problem Panic disorder (947923090) Panic disorder (F41.0) Active confirmed Problem Manic bipolar I disorder (62017800) Manic bipolar I disorder (F31.10) 0 Active confirmed Problem 872412382 Tobacco use disorder (F17.200) Active confirmed Vital Signs Height 64 in 08/29/2024 Weight 150 lbs 08/29/2024 BMI 25.74 kg/m2 08/29/2024 Encounters Encounter Location Date Provider Diagnosis [address] [address] 12/28/2023 Arif Habib Nicotine dependence, unspecified, uncomplicated F17.200 ; Bipolar 1 disorder F31.9 ; Panic disorder F41.0 and Generalized anxiety disorder F41.[address] [address] 04/11/2024 Arif Habib Nicotine dependence, unspecified, uncomplicated F17.200 ; Bipolar 1 disorder F31.9 ; Panic disorder F41.0 and Generalized anxiety disorder F41.[address] [address] 08/29/2024 Arif Habib Nicotine dependence, unspecified, uncomplicated F17.200 ; Bipolar 1 disorder F31.9 ; Panic disorder F41.0 and Generalized anxiety disorder F41.[address] [place] [address] 11/25/2023 Xander Sánchez [address] [place] [address] 04/11/2024 Xander Sánchez Assessments Encounter Date Diagnosis (ICD Code) Assessment Notes Treatment Notes Treatment Clinical Notes Section Notes 12/28/2023 Nicotine dependence, unspecified, uncomplicated (ICD-10 - F17.200) 04/11/2024 Nicotine dependence, unspecified, uncomplicated (ICD-10 - F17.200) 08/29/2024 Nicotine dependence, unspecified, uncomplicated (ICD-10 - F17.200) 08/29/2024 Bipolar 1 disorder (ICD-10 - F31.9) Risk & benefits discussed. Continue current treatment. Supportive treatment provided. 04/11/2024 Bipolar 1 disorder (ICD-10 - F31.9) Risk & benefits discussed. Continue current treatment. Supportive treatment provided. 12/28/2023 Bipolar 1 disorder (ICD-10 - F31.9) Risk & benefits discussed. Continue current treatment. Supportive treatment provided. 12/28/2023 Panic disorder (ICD-10 - F41.0) 04/11/2024 Panic disorder (ICD-10 - F41.0) 08/29/2024 Panic disorder (ICD-10 - F41.0) 08/29/2024 Generalized anxiety disorder (ICD-10 - F41.1) 04/11/2024 Generalized anxiety disorder (ICD-10 - F41.1) 12/28/2023 Generalized anxiety disorder (ICD-10 - F41.1) Plan Of Treatment No Information Insurance Providers Payer Name Payer Address Payer Phone Subscriber Number Group Number Insured Name Patient Relationship to Insured Coverage Start Date Coverage End Date [employer] [facility] Medicare-M SARAY [address] [address] [place] [address] [id number] Marah Suazo Self - patient is the insured 1 MEDICAID [address] [place] [address] [id number] Marah Suazo Self - patient is the insured 0 MEDICARE PART A [address] [place] [address] [id number] Marah Suazo Self - patient is the insured 4 Medical (General) History Medical History History ICD Code Anxiety Panic disorder Manic bipolar I disorder Depression Surgical History Surgery Date(Month/Year) biopsy cervix 2003 gallbladder 2014 Hospitalization History Reason Date(Month/Year) [facility] 06/2023 [facility] May 2022 [facility] 10/2019
--- OUTSIDE RECORDS SUMMARY | 2024-09-25 14:01 | XMS_ITS | Clinical Summary ---
Author Organization [facility] Address [address] [place] [address] Care Team Providers Care Disability Insurance Hearing Officer Name Role Phone Unavailable Primary Care Provider Unavailabl e Source Comments [facility],non-owned Affiliates and Associated Physician Practices is amultiple site organization consisting of ambulatory clinics and hospital sitesin [place], [place], [place] and [place]. This disclosure is being madepursuant to the Care Everywhere program and may not contain all information available regarding this patient. Last updated 18.[facility] Allergies Active Allergy Reactions Criticality Noted Date Comments Penicillins Urticaria 09/04/2013 Medications * Be aware that medications may not be up to date on this document. Alwaysverify current medications with the patient. hydrOXYzine pamoate (VISTARIL) 50 MG capsuleIndicati ons:Anxiety Neurosis (Inactive) Take 50 mg by mouth 3 times daily Reasons: Anxiety Neurosis Active sertraline (ZOLOFT) 100 MG tablet Take 100 mg by mouth 2 times daily after meals Active QUEtiapine (SEROQUEL) 50 MG tablet Take 50 mg by mouth 2 times daily Active venlafaxine (EFFEXOR) 25 MG tablet Take 25 mg by mouth 3 times daily with meals Active busPIRone (BUSPAR) 10 MG tablet Take 10 mg by mouth 3 times daily Active traZODone (DESYREL) 100 MG tablet Take 100 mg by mouth at bedtime Active ibuprofen (MOTRIN) 600 MG tablet Take 1 tablet by mouth every 6 hours as needed for Pain 15 tablet 9 Active Additional Information Patient not taking.Reported on 03/03/2019 Active Problems Patient Care Coordination No te Formatting of this note migh t be different from the original. 10/19/13: Pt will receive Sherri injections at Dr. Pappas's office. 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 Pappas office [phone] opt #5 Problem Noted Date Diagnosed Date Acute respiratory failure with hypoxia 5 Cervical insufficiency in , antepartum 10/14/2013 Overview (10/14/2013): Wolff cerclage with knot at 12 o'clock position (10/13) H/O LEEP (loop electrosurgic al excision procedure) of cervix complicating 09/06/2013 Overview (09/06/2013): History of LEEP in 2004. Reports no further changes in her pap smear since that time. History of delivery, currently 09/06/2013 Overview (09/06/2013): At 28w in G3. Recommend Sherri injections this starting at 16w through 36w Supervision of other high-risk 014 Overview (03/10/2015): AYESHA from Dr. Pappas PNL: A+/I/-/- Ab: neg GCT: HIV: NR GBS: Dating: l=13 wk H/H/Plt: Hgb Elec: UDS: QS: CF: Pap: requesting 09/06/2013 Gc/Chl: UCx: Breast/Bottle: Family Planning: HSV (herpes simplex virus) anogenital infection 09/04/2013 Tobacco use complicating 09/04/2013 Overview (09/06/2013): Smokes 4 cigarettes/day, but is not committed to quitting at this time. Marijuana abuse 09/04/2013 Overview (09/06/2013): Smokes 3x/day, does not desire to quit at this time as she does not want to be on her anti-psychotic medications. History of abnormal Pap smear 09/04/2013 Overview (09/06/2013): Bipolar disease in 09/04/2013 Overview (10/11/2013): Previously maintained on zoloft, seroquel, effexor, buspar, but has stopped all medication due to . 09/06/2013 - Does not desire to re-start any medication at this time. 10/11/2013 - given Rx for atarax prn for anxiety Anxiety 09/04/2013 Schizophrenia 09/04/2013 Resolved Problems Problem Noted Date Diagnosed Date Resolved Date H/O gestational diabetes in prior , currently 09/04/2013 09/06/2013 Immunizations Immunization Administration Dates Next Due INFLUENZA VACCINE, TRIV. 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 Gender Identity Not on file Sexual Orientation Not on file Last Filed Vital Signs Vital Sign Reading Time Taken Comments Blood Pressure 135/82 03/03/2019 3:09 PM CDT Pulse 86 03/03/2019 3:09 PM CDT Temperature 36.7 C (98.1 F) 03/02/2019 8:32 AM CDT Respiratory Rate 20 03/02/2019 6:55 AM CDT Oxygen Saturation 96% 03/02/2019 8:25 AM CDT Inhaled Oxygen Concentration - - Weight 64.9 kg (143 lb) 03/03/2019 3:09 PM CDT Height 165.1 cm (5' 5) 03/02/2019 4:53 AM CDT Body Mass Index 23.8 03/02/2019 4:53 AM CDT Plan of Treatment Health Maintenance Due Date Last Done Comments LIPID TESTING 1979 MAMMOGRAM 1979 MEDICARE AWV 12 MONTHS 1979 HIV SCREENING 11/23/1994 HEPATITIS C SCREENING 11/19/1997 HEPATITIS B VACCINE (1 of 3 - 19+ 3-dose series) 11/23/1998 PNEUMOCOCCAL VACCINE (2 of 2 - PCV) 01/30/2015 01/30/2014 PAP with HPV 01/08/2022 01/08/2017 COVID-19 VACCINE (1 - 2023-2 5 season) 2024 DTAP/TDAP/TD VACCINES (2 - T d or Tdap) 01/23/2024 01/22/2014 INFLUENZA VACCINE (Season Ended) 2025 01/23/20 14 ZOSTER VACCINE (1 of 2) 11/23/2029 HIB VACCINE Aged Out No longer eligi ble based on patient's age to complete this topic HPV VACCINE Aged Out No longer eligi ble based on patient's age to complete this topic MENINGOCOCCAL (Group B) VACC INE SHARED DECISION-MAKING Aged Out No longer eligibl e based on patient's age to complete this topic MENINGOCOCCAL GROUPS A/C/Y/W VACCINE Aged Out No longer eligible b ased on patient's age to complete this topic Procedures Procedure Name Priority Date/Time Associated Diagnosis Comments PAP LB HPV HR DNA Routine 01/08/2017 3:5 3 PM CDT Well woman exam from Last 3 Months or Most Recently Relevant to Health Maintenance Results * PAP LB HPV HR DNA (01/08/2017 3:53 PM CDT) Diagnosis Comment 01/14/2017 6:10 PM CDT [facility] ([facility]) Comment: NEGATIVE FOR INTRAEPITHELIAL LESION AND MALIGNANCY. CELLULAR CHANGES ASSOCIATED WITH INFLAMMATION ARE PRESENT. Specimen Adequacy Comment 017 6:10 PM CDT [facility] ([facility]) Comment: Satisfactory for evaluation. Endocervical and/or squamous metaplastic cells (endocervical component) are present. Performed by Comment 01/14/2017 6:10 PM CDT [facility] ([facility]) Comment:Lilly Ponce Ear Nose And Throat Specialist (ASCP) Comment . 01/14/2017 6:10 PM CDT [facility] ([facility]) Note Comment 01/14/2017 6:10 PM CDT [facility] ([facility]) Comment: The Pap smear is a screening test designed to aid in the detection of premalignant and malignant conditions of the uterine cervix. It is not a diagnostic procedure and should not be used as the sole means of detecting cervical cancer. Both false-positive and false-negative reports do occur. Human papillomavirus High Risk Negative Negative 01/14/2017 6:10 PM CDT [facility] ([facility]) Comment: This high-risk HPV test detects thirteen high-risk types (16/18/31/33/35/39/45/51/52/56/58/59/68) without differentiation. Pathology/Cytolo gy MICROSCOPIC CYTOLOGIC EXAMINATION OF SMEAR OF SPECIMEN FROM FEMALE GENITAL TRACT PREPARED USING PAPANICOLAOU TECHNIQUE / Unknown Collection / Unknown 01/08/2017 3:53 PM CDT 01/08/2017 3:56 PM CDT Narrative [facility] ([facility]) - 01/14/2017 6:10 PM CDT Performed at: 01 - [address] [id number] Media Theorist And Author Of: Marjorie Scott MD, Phone: [phone] Performed at: 02 - [address] [id number] Media Theorist And Author Of: Marjorie Scott MD, Phone: [phone] Specimen Comment: Source.............Cervix Specimen Comment: LMP / Prev Treat...[id number]=[id number];None Specimen Comment: No. of containers..01 ThinPrep Vial us Mulugeta Kaba MD LAB - PATHOLOGY/CYTOLOGY ORD ERABLES Final Result [facility] ([facility]) [address] [place] [address] from Last 3 Months or Most Recently Relevant to Health Maintenance Insurance MEDICAID - [place] MEDICARE MEDICARE MEDICAID [facility] Advance Directives * Full Code (Latest Code Status on File) Date Activated Date Inactivated Comments 01/27/2014 4:34 PM 01/30/2014 8:10 PM * Full Code Date Activated Date Inactivated Comments 10/13/2013 3:55 PM 10/14/2013 2:49 PM * Full Code Date Activated Date Inactivated Comments 10/12/2013 9:17 PM 10/13/2013 3:55 PM
[2024-09-25 14:14] VITALS: BP 150/95; PULSE 97; RESP 19; TEMP 36.6; O2SAT 100
--- NOTE | 2024-09-25 16:42 | ED.NAVMDI ---
HPI - Nausea/Vomiting/Diarrhea General Chief complaint: Nausea/Vomiting/Diarrhea <Kaley Watkins PA-C - Last Filed: 09/25/24 16:44> Stated complaint: N/V x 2 days, headache, anxiety <Kaley Watkins PA-C - Last Filed: 09/25/24 16:44> Time Seen by Provider: 09/25/24 17:00 <Kaley Watkins PA-C - Last Filed: 09/25/24 16:44> Focused HPI: 43-year-old female history of bipolar disorder, anxiety, headaches presents to emergency department for 3 days of left-sided headache, nausea and vomiting of 1 day of anxiety. Patient states the headache is located on her left side, denies injury or trauma. Denies vision changes, focal numbness or weakness, neck pain or nuchal rigidity. She endorses associated nausea and vomiting. States she was exposed to her daughter who was recently sick. States yesterday she began to feel very anxious due to ?everything that is going on. ? She denies SI or HI. She presents with her [id number] at bedside. Denies EtOH or drug use. GENERAL: Well-appearing, well-nourished, and in no acute distress. HEAD: Normocephalic, atraumatic. NECK: No nuchal rigidity. CHEST: Clear to auscultation. ?No respiratory distress. HEART: Regular rate and rhythm.? NEURO: ?Alert and oriented x4. Cranial nerves 2-12 intact. Strength 5/5 in BUE and BLE. Sensation intact throughout. Patient screened in triage and initial orders placed.? ?Additional care and disposition to be based upon?diagnostic testing and treatment. <Kaley Watkins PA-C - Last Filed: 09/25/24 16:44> Focused HPI: 43-year-old female history of bipolar disorder, anxiety, headaches presents to emergency department for 3 days of left-sided headache, nausea and vomiting of 1 day of anxiety. Patient states the headache is located on her left side, denies injury or trauma. Denies vision changes, focal numbness or weakness, neck pain or nuchal rigidity. She endorses associated nausea and vomiting. States she was exposed to her daughter who was recently sick. States yesterday she began to feel very anxious due to ?everything that is going on. ? She denies SI or HI. She presents with her [id number] at bedside. Denies EtOH or drug use. GENERAL: Well-appearing, well-nourished, and in no acute distress. HEAD: Normocephalic, atraumatic. NECK: No nuchal rigidity. CHEST: Clear to auscultation. ?No respiratory distress. HEART: Regular rate and rhythm.? NEURO: ?Alert and oriented x4. Cranial nerves 2-12 intact. Strength 5/5 in BUE and BLE. Sensation intact throughout. Patient screened in triage and initial orders placed.? ?Additional care and disposition to be based upon?diagnostic testing and treatment. <Jeri Awad APRN - Last Filed: 09/26/24 01:32> History of Present Illness HPI Narrative: I agree with the assessment and documentation of Kaley Watkins PA-C. <Jeri Awad APRN - Last Filed: 09/26/24 01:32> Related Data Allergies/Adverse reactions: Allergies Allergy/AdvReac Type Severity Reaction Status Date / Time Penicillins Allergy Mild Unknown Verified 11/09/22 01:01 <Kaley Watkins PA-C - Last Filed: 09/25/24 16:44> Review of Systems Review of Systems: All systems reviewed & are unremarkable except as noted in HPI and below <Jeri Awad APRN - Last Filed: 09/26/24 01:32> PMFSH Past Medical History Medical History: Medical History Bipolar disorder Sleep disorder Anxiety Manic depressive disorder UTI (urinary tract infection) Kidney stone <Kaley Watkins PA-C - Last Filed: 09/25/24 16:44> Surgical History Surgical History: Surgical History History of cervical biopsy <Kaley Watkins PA-C - Last Filed: 09/25/24 16:44> Social History Social History: Social History Additional smoking assessment comments: 1/2 PPD <Kaley Watkins PA-C - Last Filed: 09/25/24 16:44> Exam Narrative: GENERAL: Ill appearing, well-nourished, non-toxic, in mild distress. HEAD: Normocephalic, atraumatic. NECK: Supple. No adenopathy, no masses. RESPIRATORY: Airway patent, respirations nonlabored. Clear to auscultation bilaterally, no rales, rhonchi, wheezing. CARDIOVASCULAR: Regular rate and rhythm without murmurs, rubs, or gallops. Peripheral pulses 2+ and equal bilaterally. ABDOMINAL: Soft, nontender, nondistended, no hepatosplenomegaly. Normoactive BS. MUSCULOSKELETAL: Moves all extremities. Strength/ROM intact without gross deformities. SKIN: Warm, dry, normal color. No rashes. NEURO: A&O X3. Speech clear. Cranial nerves II-XII intact. No ataxic movements. PSYCHIATRIC: Appropriate mood and affect. Normal interaction. <Jeri Awad APRN - Last Filed: 09/26/24 01:32> Course Vital Signs Vital signs: Vital Signs Temperature 36.6 C 09/25/24 14:14 Pulse Rate 97 09/25/24 14:14 Respiratory Rate 09/25/24 14:14 Blood Pressure 150/95 H 09/25/24 14:14 Pulse Oximetry 100 09/25/24 14:14 Oxygen Delivery Room Air 09/25/24 14:14 Temperature 36.6 C 09/25/24 14:14 Pulse Rate 90 09/25/24 16:50 Respiratory Rate 20 09/25/24 16:50 Blood Pressure 149/111 H 09/25/24 16:50 Pulse Oximetry 100 09/25/24 16:50 Oxygen Delivery Room Air 09/25/24 14:14 <Kaley Watkins PA-C - Last Filed: 09/25/24 16:44> Vital Signs Temperature 36.6 C 09/25/24 14:14 Pulse Rate 97 09/25/24 14:14 Respiratory Rate 19 09/25/24 14:14 Blood Pressure 150/95 H 09/25/24 14:14 Pulse Oximetry 100 09/25/24 14:14 Oxygen Delivery Room Air 09/25/24 14:14 Temperature 36.6 C 09/25/24 14:14 Pulse Rate 90 09/25/24 16:50 Respiratory Rate 20 09/25/24 16:50 Blood Pressure 149/111 H 09/25/24 16:50 Pulse Oximetry 100 09/25/24 16:50 Oxygen Delivery Room Air 09/25/24 14:14 <Jeri Awad, IN FLIGHT TECHNICIAN - Last Filed: 09/26/24 01:32> MDM - Nausea/Vomiting/Diarrhea MDM Narrative Medical decision making narrative: 43-year-old female history of bipolar disorder, anxiety, headaches presents to emergency department for 3 days of left-sided headache, nausea and vomiting of 1 day of anxiety. Patient states the headache is located on her left side, denies injury or trauma. Denies vision changes, focal numbness or weakness, neck pain or nuchal rigidity. She endorses associated nausea and vomiting. States she was exposed to her daughter who was recently sick. States yesterday she began to feel very anxious due to ?everything that is going on. ? She denies SI or HI. She presents with her [id number] at bedside. Denies EtOH or drug use. Labs Ordered: CBC, CMP, UA, lipase, COVID/flu/RSV swab Imaging Ordered: CT brain Medications Ordered: 1 L normal saline IV bolus, Benadryl 25 mg IV x 2, Compazine 10 mg IV x 2, Tylenol 1 g p.o., Ativan 0.5 mg IV, Haldol 5mg IM, Decadron 10mg IV, Toradol 15mg IV Results: Pt's head CT scan indicates No acute intracranial findings. Diagnosis: Migraine headache, nausea and vomiting, gastroenteritis Patient Education/Shared MDM: Results of lab work and imaging shared with patient. She endorses significant improvement of symptoms following Haldol administration. Pt reports she continues to have a significant headache, while intermittently dry heaving/gagging. She did not feel stable on her feet and needed assistance with walking. Will re-dose pt with migraine cocktail and re-evaluate. Upon re-examination, pt endorses significant improvement. She was able to walk to the restroom independently. Pt is no longer dry heaving nor gagging. Patient strongly advised to maintain hydration status upon discharge and follow-up with their PCP as soon as possible. She will be discharged home with a prescription for Zofran. Patient ambulated around ER with no difficulty. Strict return precautions provided. Patient verbalized understanding and is in agreement with plan. Vital signs stable at time of discharge. All questions answered. <Jeri Awad APRN - Last Filed: 09/26/24 01:32> Differential Diagnosis Differential diagnosis: Likely gastroenteritis, drug-induced nausea and vomiting and dehydration <Jeri Awad APRN - Last Filed: 09/26/24 01:32> Lab Data Attestation: I reviewed the patient's lab results. <Jeri Awad APRN - Last Filed: 09/26/24 01:32> Result diagrams: 09/25/24 17:05 09/25/24 18:52 <Kaley Watkins PA-C - Last Filed: 09/25/24 16:44> Labs: Lab Results 09/25/24 09/25/24 09/25/24 Range/Units 17:02 17:04 17:05 WBC 20.4 H (4.5-10.0) K/mm3 RBC 4.93 (4.2-5.4) M/mm3 Hgb 14.4 (12.0-15.0) g/dL Hct 43.3 (37.0-47.0) % MCV 87.8 (80-100) fl MCH 29.2 (26-34) pg MCHC 33.3 (32-36) g/dl RDW 12.6 (11.5-14.5) % Plt Count 314 (150-375) k/mm3 MPV 8.9 (7.4-10.4) fl Immature Gran % (Auto) Not Reportable Neut % (Auto) Not Reportable Lymph % (Auto) Not Reportable Coffee % (Auto) Not Reportable Eos % (Auto) Not Reportable Baso % (Auto) Not Reportable Lymph # (Auto) Not Reportable Coffee # (Auto) Not Reportable Eos # (Auto) Not Reportable Baso # (Auto) Not Reportable Abs Immat Gran (auto) Not Reportable Absolute Neuts (auto) Not Reportable Absolute Nucleated RBC Not Reportable Total Counted 100 Neutrophils % (Manual) 91 H (46-73) % Band Neutrophils % 3 (0-6) % Lymphocytes % (Manual) 3.0 L (18-44) % Monocytes % (Manual) 3 (3-9) % Nucleated RBC % Not Reportable Abs Neuts (Manual) 19.17 H (1.7-7.2) K/mm3 Abs Lymphs (Manual) 0.61 L (1.1-4.5) K/mm3 Abs Monocytes (Manual) 0.61 (0.1-0.90) K/mm3 Platelet Estimate Adequate (Adequate) Schistocytes None seen Sodium (137-145) mmol/L Potassium (3.4-5.0) mmol/L Chloride (98-107) mmol/L Carbon Dioxide (22-30) mmol/L Anion Gap (4-12) mmol/L BUN (7-17) mg/dL Creatinine (0.7-1.0) mg/dL Estim Creat Clear Calc ml/min Estimated GFR (59 - ) Glucose (65-110) mg/dL Calcium (8.4-10.2) mg/dL Total Bilirubin (0.2-1.3) mg/dL AST (14-36) U/L ALT (6-35) U/L Alkaline Phosphatase (38-126) U/L Total Protein (6.3-8.2) g/dL Albumin (3.5-5.1) g/dL Lipase (23-300) U/L Urine Color Yellow (Yellow) Urine Appearance Clear (Clear) Urine pH 5.5 (5.0-9.0) Ur Specific [place] 1.021 (1.001-1.035) Urine Protein 1+ H (Negative) mg/dL Urine Glucose (UA) 1+ H (Negative) mg/dL Urine Ketones 1+ H (Negative) mg/dL Ur Blood (Man) 3+ H (Negative) Urine Nitrate Negative (Negative) Urine Bilirubin Negative (Negative) Urine Urobilinogen 0.2 (<2.0) mg/dL Leukocyte Esterase Rfl Negative (Negative) KASEY/UL Urine RBC 3-5 H (0-2) /hpf Urine WBC 0-5 (0-3) /hpf Ur Squamous Epith Cells Few (Few) /hpf Urine Bacteria Rare /hpf Urine Casts 0-2 POC Urine HCG, Qual Negative (Negative) Urine Opiates Screen Negative (Negative) Urine Methadone Screen Negative (Negative) Ur Barbiturates Screen Negative (Negative) Ur Phencyclidine Scrn Negative (Negative) Ur Amphetamine Screen Negative (Negative) U Benzodiazepines Scrn Negative (Negative) Urine Cocaine Screen Negative (Negative) U Cannabinoids Screen Positive A (Negative) Influenza A (RT-PCR) Negative (Negative) Influenza B (RT-PCR) Negative (Negative) RSV (RT-PCR) Negative (Negative) SARS-CoV-2 RNA (RT-PCR) Negative (Negative) 09/25/24 Range/Units 18:52 WBC (4.5-10.0) K/mm3 RBC (4.2-5.4) M/mm3 Hgb (12.0-15.0) g/dL Hct (37.0-47.0) % MCV (80-100) fl MCH (26-34) pg MCHC (32-36) g/dl RDW (11.5-14.5) % Plt Count (150-375) k/mm3 MPV (7.4-10.4) fl Immature Gran % (Auto) Neut % (Auto) Lymph % (Auto) Coffee % (Auto) Eos % (Auto) Baso % (Auto) Lymph # (Auto) Coffee # (Auto) Eos # (Auto) Baso # (Auto) Abs Immat Gran (auto) Absolute Neuts (auto) Absolute Nucleated RBC Total Counted Neutrophils % (Manual) (46-73) % Band Neutrophils % (0-6) % Lymphocytes % (Manual) (18-44) % Monocytes % (Manual) (3-9) % Nucleated RBC % Abs Neuts (Manual) (1.7-7.2) K/mm3 Abs Lymphs (Manual) (1.1-4.5) K/mm3 Abs Monocytes (Manual) (0.1-0.90) K/mm3 Platelet Estimate (Adequate) Schistocytes Sodium 136 L (137-145) mmol/L Potassium 3.4 (3.4-5.0) mmol/L Chloride 102 (98-107) mmol/L Carbon Dioxide 16 L (22-30) mmol/L Anion Gap 18 H (4-12) mmol/L BUN 7 (7-17) mg/dL Creatinine 0.66 L (0.7-1.0) mg/dL Estim Creat Clear Calc 95 ml/min Estimated GFR > 60 (59 - ) Glucose 116 H (65-110) mg/dL Calcium 9.1 (8.4-10.2) mg/dL Total Bilirubin 0.6 (0.2-1.3) mg/dL AST 47 H (14-36) U/L ALT 49 H (6-35) U/L Alkaline Phosphatase 111 (38-126) U/L Total Protein 8.0 (6.3-8.2) g/dL Albumin 4.8 (3.5-5.1) g/dL Lipase 71 (23-300) U/L Urine Color (Yellow) Urine Appearance (Clear) Urine pH (5.0-9.0) Ur Specific [place] (1.001-1.035) Urine Protein (Negative) mg/dL Urine Glucose (UA) (Negative) mg/dL Urine Ketones (Negative) mg/dL Ur Blood (Man) (Negative) Urine Nitrate (Negative) Urine Bilirubin (Negative) Urine Urobilinogen (<2.0) mg/dL Leukocyte Esterase Rfl (Negative) KASEY/UL Urine RBC (0-2) /hpf Urine WBC (0-3) /hpf Ur Squamous Epith Cells (Few) /hpf Urine Bacteria /hpf Urine Casts POC Urine HCG, Qual (Negative) Urine Opiates Screen (Negative) Urine Methadone Screen (Negative) Ur Barbiturates Screen (Negative) Ur Phencyclidine Scrn (Negative) Ur Amphetamine Screen (Negative) U Benzodiazepines Scrn (Negative) Urine Cocaine Screen (Negative) U Cannabinoids Screen (Negative) Influenza A (RT-PCR) (Negative) Influenza B (RT-PCR) (Negative) RSV (RT-PCR) (Negative) SARS-CoV-2 RNA (RT-PCR) (Negative) <Kaley Watkins PA-C - Last Filed: 09/25/24 16:44> Lab Results 09/25/24 09/25/24 09/25/24 Range/Units 17:02 17:04 17:05 WBC 20.4 H (4.5-10.0) K/mm3 RBC 4.93 (4.2-5.4) M/mm3 Hgb 14.4 (12.0-15.0) g/dL Hct 43.3 (37.0-47.0) % MCV 87.8 (80-100) fl MCH 29.2 (26-34) pg MCHC 33.3 (32-36) g/dl RDW 12.6 (11.5-14.5) % Plt Count 314 (150-375) k/mm3 MPV 8.9 (7.4-10.4) fl Immature Gran % (Auto) Not Reportable Neut % (Auto) Not Reportable Lymph % (Auto) Not Reportable Coffee % (Auto) Not Reportable Eos % (Auto) Not Reportable Baso % (Auto) Not Reportable Lymph # (Auto) Not Reportable Coffee # (Auto) Not Reportable Eos # (Auto) Not Reportable Baso # (Auto) Not Reportable Abs Immat Gran (auto) Not Reportable Absolute Neuts (auto) Not Reportable Absolute Nucleated RBC Not Reportable Total Counted 100 Neutrophils % (Manual) 91 H (46-73) % Band Neutrophils % 3 (0-6) % Lymphocytes % (Manual) 3.0 L (18-44) % Monocytes % (Manual) 3 (3-9) % Nucleated RBC % Not Reportable Abs Neuts (Manual) 19.17 H (1.7-7.2) K/mm3 Abs Lymphs (Manual) 0.61 L (1.1-4.5) K/mm3 Abs Monocytes (Manual) 0.61 (0.1-0.90) K/mm3 Platelet Estimate Adequate (Adequate) Schistocytes None seen Sodium (137-145) mmol/L Potassium (3.4-5.0) mmol/L Chloride (98-107) mmol/L Carbon Dioxide (22-30) mmol/L Anion Gap (4-12) mmol/L BUN (7-17) mg/dL Creatinine (0.7-1.0) mg/dL Estim Creat Clear Calc ml/min Estimated GFR (59 - ) Glucose (65-110) mg/dL Calcium (8.4-10.2) mg/dL Total Bilirubin (0.2-1.3) mg/dL AST (14-36) U/L ALT (6-35) U/L Alkaline Phosphatase (38-126) U/L Total Protein (6.3-8.2) g/dL Albumin (3.5-5.1) g/dL Lipase (23-300) U/L Urine Color Yellow (Yellow) Urine Appearance Clear (Clear) Urine pH 5.5 (5.0-9.0) Ur Specific [place] 1.021 (1.001-1.035) Urine Protein 1+ H (Negative) mg/dL Urine Glucose (UA) 1+ H (Negative) mg/dL Urine Ketones 1+ H (Negative) mg/dL Ur Blood (Man) 3+ H (Negative) Urine Nitrate Negative (Negative) Urine Bilirubin Negative (Negative) Urine Urobilinogen 0.2 (<2.0) mg/dL Leukocyte Esterase Rfl Negative (Negative) KASEY/UL Urine RBC 3-5 H (0-2) /hpf Urine WBC 0-5 (0-3) /hpf Ur Squamous Epith Cells Few (Few) /hpf Urine Bacteria Rare /hpf Urine Casts 0-2 POC Urine HCG, Qual Negative (Negative) Urine Opiates Screen Negative (Negative) Urine Methadone Screen Negative (Negative) Ur Barbiturates Screen Negative (Negative) Ur Phencyclidine Scrn Negative (Negative) Ur Amphetamine Screen Negative (Negative) U Benzodiazepines Scrn Negative (Negative) Urine Cocaine Screen Negative (Negative) U Cannabinoids Screen Positive A (Negative) Influenza A (RT-PCR) Negative (Negative) Influenza B (RT-PCR) Negative (Negative) RSV (RT-PCR) Negative (Negative) SARS-CoV-2 RNA (RT-PCR) Negative (Negative) 09/25/24 Range/Units 18:52 WBC (4.5-10.0) K/mm3 RBC (4.2-5.4) M/mm3 Hgb (12.0-15.0) g/dL Hct (37.0-47.0) % MCV (80-100) fl MCH (26-34) pg MCHC (32-36) g/dl RDW (11.5-14.5) % Plt Count (150-375) k/mm3 MPV (7.4-10.4) fl Immature Gran % (Auto) Neut % (Auto) Lymph % (Auto) Coffee % (Auto) Eos % (Auto) Baso % (Auto) Lymph # (Auto) Coffee # (Auto) Eos # (Auto) Baso # (Auto) Abs Immat Gran (auto) Absolute Neuts (auto) Absolute Nucleated RBC Total Counted Neutrophils % (Manual) (46-73) % Band Neutrophils % (0-6) % Lymphocytes % (Manual) (18-44) % Monocytes % (Manual) (3-9) % Nucleated RBC % Abs Neuts (Manual) (1.7-7.2) K/mm3 Abs Lymphs (Manual) (1.1-4.5) K/mm3 Abs Monocytes (Manual) (0.1-0.90) K/mm3 Platelet Estimate (Adequate) Schistocytes Sodium 136 L (137-145) mmol/L Potassium 3.4 (3.4-5.0) mmol/L Chloride 102 (98-107) mmol/L Carbon Dioxide 16 L (22-30) mmol/L Anion Gap 18 H (4-12) mmol/L BUN 7 (7-17) mg/dL Creatinine 0.66 L (0.7-1.0) mg/dL Estim Creat Clear Calc 95 ml/min Estimated GFR > 60 (59 - ) Glucose 116 H (65-110) mg/dL Calcium 9.1 (8.4-10.2) mg/dL Total Bilirubin 0.6 (0.2-1.3) mg/dL AST 47 H (14-36) U/L ALT 49 H (6-35) U/L Alkaline Phosphatase 111 (38-126) U/L Total Protein 8.0 (6.3-8.2) g/dL Albumin 4.8 (3.5-5.1) g/dL Lipase 71 (23-300) U/L Urine Color (Yellow) Urine Appearance (Clear) Urine pH (5.0-9.0) Ur Specific [place] (1.001-1.035) Urine Protein (Negative) mg/dL Urine Glucose (UA) (Negative) mg/dL Urine Ketones (Negative) mg/dL Ur Blood (Man) (Negative) Urine Nitrate (Negative) Urine Bilirubin (Negative) Urine Urobilinogen (<2.0) mg/dL Leukocyte Esterase Rfl (Negative) KASEY/UL Urine RBC (0-2) /hpf Urine WBC (0-3) /hpf Ur Squamous Epith Cells (Few) /hpf Urine Bacteria /hpf Urine Casts POC Urine HCG, Qual (Negative) Urine Opiates Screen (Negative) Urine Methadone Screen (Negative) Ur Barbiturates Screen (Negative) Ur Phencyclidine Scrn (Negative) Ur Amphetamine Screen (Negative) U Benzodiazepines Scrn (Negative) Urine Cocaine Screen (Negative) U Cannabinoids Screen (Negative) Influenza A (RT-PCR) (Negative) Influenza B (RT-PCR) (Negative) RSV (RT-PCR) (Negative) SARS-CoV-2 RNA (RT-PCR) (Negative) <Jeri Awad APRN - Last Filed: 09/26/24 01:32> Imaging Data Attestation: I personally reviewed and interpreted this imaging study as follows: <Jeri Awad APRN - Last Filed: 09/26/24 01:32> Radiologist's impression: Impressions Head CT 09/25/24 19:58 IMPRESSION: No acute intracranial findings. <Jeri Awad APRN - Last Filed: 09/26/24 01:32> Discharge Plan Discharge Clinical Impression: Gastroenteritis, Migraine, Dehydration <Kaley Watkins PA-C - Last Filed: 09/25/24 16:44> Patient Disposition: Home <NATALIE Shelton Last Filed: 09/25/24 16:44> Condition: Stable <NATALIE Shelton Last Filed: 09/25/24 16:44> Instructions: Antibiotic Form, Migraine Headache (ED), Gastroenteritis (ED), Acute Nausea and Vomiting (ED) <NATALIE Shelton Last Filed: 09/25/24 16:44> Additional Instructions: Please return to the ER with any worsening symptoms. Follow-up with primary care provider as soon as possible. Take all medications as prescribed, including regularly scheduled medications. You may use Zofran as needed for nausea and vomiting. <NATALIE Shelton Last Filed: 09/25/24 16:44> Patient Language: Cambodian <NATALIE Shelton Last Filed: 09/25/24 16:44> Prescriptions: New ondansetron 4 mg tablet,disintegrating 4 mg PO Q6H PRN (Reason: nausea and vomiting) Qty: 20 0RF No Action ondansetron HCl [Zofran] 4 mg tablet 4 mg PO Q6H PRN (Reason: nausea and vomiting) Qty: 10 0RF ondansetron 4 mg tablet,disintegrating 4 mg PO Q8H PRN (Reason: nausea and vomiting) Qty: 15 0RF <Kaley Watkins PA-C - Last Filed: 09/25/24 16:44> Follow-up/Referrals: Leo Flores MD [Physician] - (primary care) UNKNOWN,DOCTOR [Primary Care Provider] - <Kaley Watkins PA-C - Last Filed: 09/25/24 16:44> Time of Disposition: 01:31 <Kaley Watkins PA-C - Last Filed: 09/25/24 16:44> 01:31 <Jeri Awad APRN - Last Filed: 09/26/24 01:32>
[2024-09-25 16:50] VITALS: BP 149/111; PULSE 90; RESP 20; O2SAT 100
[2024-09-25 17:05] LABS: BEDSIDEPREGUCG Negative (Negative)
[2024-09-25] MEDS: diphenhydrAMINE HCl INJ 50 MG/ML VIAL 25 MG IV PUSH (17:05)
[2024-09-25] MEDS: ACETAMINOPHEN 500 MG TABLET 1000 MG PO (17:05)
[2024-09-25] MEDS: SODIUM CHLORIDE 0.9% IV 1,000 ML 999 ML IV CONT (17:05)
[2024-09-25] MEDS: PROCHLORPERAZINE EDISYLATE 10 MG/2 ML VIAL IM (17:06)
[2024-09-25 17:10] LABS: Hematocrit 43.3 % (37.0-47.0); Hemoglobin 14.4 g/dL (12.0-15.0); Mean Corpuscular HGB Conc 33.3 g/dl (32-36); Mean Corpuscular Hemoglobin 29.2 pg (26-34); Mean Corpuscular Volume 87.8 fl (80-100); Mean Platelet Volume 8.9 fl (7.4-10.4); Platelet Count Result 314 k/mm3 (150-375); Red Blood Count 4.93 M/mm3 (4.2-5.4); Red Cell Distribution Width 12.6 % (11.5-14.5); White Blood Count 20.4 K/mm3 (4.5-10.0)
[2024-09-25 17:17] LABS: Add Urine Microscopic? YES; Appearance Urine Clear (Clear); Bacteria Urine Rare /hpf; Bilirubin Urine Negative (Negative); Blood Urine 3+ (Negative); Color Urine Yellow (Yellow); Glucose Urine UA 1+ mg/dL (Negative); Ketones Urine 1+ mg/dL (Negative); Leukocyte Esterase Ur Negative LEU/UL (Negative); Nitrate Urine Negative (Negative); Non Pathogenic Casts 0-2; Protein Urine 1+ mg/dL (Negative); Specific Grav Ur 1.021 (1.001-1.035); Squamous Epithelial Cell Urine Few /hpf (Few); Urobilinogen Urine 0.2 mg/dL (<2.0); WBC Urine 0-5 /hpf (0-3); pH Urine 5.5 (5.0-9.0)
--- OUTSIDE RECORDS SUMMARY | 2024-09-25 17:32 | XMS_ITS | Clinical Summary ---
Author Organization [facility] Address [address] [place] [address] Phone Care Team Providers Care School Janitor Name Role Phone Selina Burrell APRN, MAUREEN [...] Department Care Team Description 07/07/2024 10:15 AM PROFESSOR OF FINANCE - 07/07/2024 12:03 PM PROFESSOR OF FINANCE Surgery [facility] Cardiac Clinical Staff Pharmacist [address] [place] [address] Maria Dolores Skelton MD CARDIAC CATH 07/07/2024 7:40 AM PROFESSOR OF FINANCE - 07/07/2024 1:30 PM PROFESSOR OF FINANCE Hospital [facility] Cardiac Clinical Staff Pharmacist 1 [facility] [place] [address] Maria Dolores Skelton MD Tobacco user Discharge Disposition: Discharged to home or Selfcare 07/07/2024 Travel 07/04/2024 Telephone [facility] [address] [place] [address] Maria Dolores Skelton MD Follow-up; Appointment 06/29/2024 Telephone [facility] [address] [place] [address] Maria Dolores Skelton MD from [...] drink = 0.6 oz pur e alcohol) [facility] Utilities Answer Date Recorded In the past 12 months has th e [employer], gas, oil, or water [employer] threatened to shut off services in your [...] any time in the past 12 m [facility], were you homeless or living in a alf (including now)? No 05/26/2024 Sexually Active Control Partners Comments Not Currently Implant esure Comments No Sex and Gender Information Value Date Recorded Sex Assigned at Not on file Legal Sex Female 5:10 PM PROFESSOR OF FINANCE Gender Identity Not on file Sexual Orientation Not on file Last Filed Vital Signs Vital Sign Reading Time Taken Comments Blood Pressure 128/69 07/07/2024 1:00 PM PROFESSOR OF FINANCE Pulse 72 07/07/2024 9:51 AM PROFESSOR OF FINANCE Temperature 36.8 C (98.3 F) 07/07/2024 8:05 AM PROFESSOR OF FINANCE Respiratory Rate 12 07/07/2024 1:00 PM PROFESSOR OF FINANCE Oxygen Saturation 96% 07/07/2024 1:00 PM PROFESSOR OF FINANCE Inhaled Oxygen Concentration - - Weight 74.7 kg (164 lb 11.2 oz) 07/07/2024 8:05 AM PROFESSOR OF FINANCE Height 165.1 cm (5' 5) 07/07/2024 8:05 AM PROFESSOR OF FINANCE Body Mass Index 27.41 07/07/2024 8:05 AM PROFESSOR OF FINANCE Plan of Treatment Upcoming Encounters Date Type Department Care Team (Late st Contact Info) Description 10/31/2024 4:30 PM CDT [facility] - [place] [address] [place] [address] Rehana Moss APRN, CHAIRMAN [address] [place] [address] Health Maintenance Due Date Last Done Comments [...] Comments CARDIAC CATH Routine 07/07/2024 9:53 AM PROFESSOR OF FINANCE Tobacco user Cardiomyopathy, unspecified type (HCC) HFrEF (heart failure with reduced ejection fraction) (HCC) Primary hypertension Nonrheumatic mitral valve regurgitation POCT URINE HCG () Routine 07/07/2024 7:55 AM PROFESSOR OF FINANCE from Last 3 Months Results * CARDIAC CATH (07/07/2024 9:53 AM PROFESSOR OF FINANCE) Anatomical Region Laterality Modality CARDIO N/A X-Ray Angiograph y Narrative 07/07/2024 10:01 AM PROFESSOR OF FINANCE Images from the original result were not [...] closure method: - right radial artery, 6 Azerbaijani sheath, TR band Periprocedural Events: None Estimated blood loss: Minimal Recommendations: -Routine post cath care -Continue current GDMT for nonischemic cardiomyopathy with plan for repeat echo to assess LV function improvement/recovery - Follow up - Risk factor optimization Discharge: Same-day discharge, pending clinical course Maria Dolores Skelton MD, [facility] Interventional and Structural Cardiology [facility] Maintenance Of Way Supervisorwelding equipment repairer supervisor [facility] [employer] Email: [email or web address] Office phone: [phone] [place] ([place]) Office: [phone] Maria Dolores Skelton MD IMG CARDIAC CAT H Final Result * POCT Urine HCG () (07/07/2024 7:55 AM PROFESSOR OF FINANCE) POC URINE Negative POC URINE CONTROL Cottage Cheese Maker Pass Urine 07/07/2024 7:55 AM PROFESSOR OF FINANCE Maria Dolores Skelton MD POINT OF CARE T ESTING (MANUAL) Final Result from Last 3 Months Insurance MEDICARE C [facility] [employer] Advance Directives Documents on File Type Date Recorded Patient Process Planner Expl jin GAMBLE Surrogate Physician Appointment 05/26/2024 10:54 AM [facility], 05/26/2024 * Full Code (Latest Code Status on File) Date Activated Date Inactivated Comments 05/26/2024 4:58 AM CPR-Full Treat ment: FULL ARREST: Attempt Resuscitation/CPR wit intubation and mechanical ventilation. PRE-ARREST: Use entire range of life support measures to stabilize the patient. Care Teams School Janitor Relationship Specialty Start Date End Date Selina Burrell APRN, CHAIRMAN [address] [place] [address] PCP - General Family Medicine 05/25/24 Maria Dolores Skelton MD [address] [address] Consulting Physician Cardiology 06/19/24
--- OUTSIDE RECORDS SUMMARY | 2024-09-25 17:32 | XMS_ITS | Clinical Summary ---
Author Organization [facility] [employer] Address [address] [place] [address] Care Team Providers Care Thread Puller Name Role Phone Unavailable Primary Care Provider Unavailabl e Source Comments [facility] [employer],non-owned Affiliates and Associated Physician Practices is amultiple site organization consisting of ambulatory clinics and hospital sitesin [place], [place], [place] and [place]. This disclosure is being madepursuant to the Care Everywhere program and may not contain all information available regarding this patient. Last updated 18.[facility] [employer] Allergies Active Allergy Reactions Criticality Noted Date [...] office. (Should start 10/30/13.) Elyse is the well service floorperson @ Dr. Pappas office [phone] opt #5 Problem Noted Date Diagnosed Date [...] on file Legal Sex Female 6:37 AM CERTIFIED SKI PATROLLER Gender Identity Not on file Sexual Orientation [...] Diagnosis Comment 01/14/2017 6:10 PM CDT [facility] ([facility]) Comment: NEGATIVE FOR INTRAEPITHELIAL LESION AND MALIGNANCY. CELLULAR CHANGES ASSOCIATED WITH INFLAMMATION ARE PRESENT. Specimen Adequacy Comment 017 6:10 PM CDT [facility] ([facility]) Comment: Satisfactory for evaluation. Endocervical and/or squamous metaplastic cells (endocervical component) are present. Performed by Comment 01/14/2017 6:10 PM CDT [facility] ([facility]) Comment:Lilly Ponce Extruding Machine Operator (ASCP) Comment . 01/14/2017 6:10 PM CDT [facility] ([facility]) Note Comment 01/14/2017 6:10 PM CDT [facility] ([facility]) Comment: The Pap smear is a screening test designed to aid in the detection of premalignant and malignant conditions of the uterine cervix. It is not a diagnostic procedure and should not be used as the sole means of detecting cervical cancer. Both false-positive and false-negative reports do occur. Human papillomavirus High Risk Negative Negative 01/14/2017 6:10 PM CDT [facility] ([facility]) Comment: This high-risk HPV test detects thirteen high-risk types (16/18/31/33/35/39/45/51/52/56/58/59/68) without differentiation. Pathology/Cytolo gy MICROSCOPIC CYTOLOGIC EXAMINATION OF SMEAR OF SPECIMEN FROM FEMALE GENITAL TRACT PREPARED USING PAPANICOLAOU TECHNIQUE / Unknown Collection / Unknown 01/08/2017 3:53 PM CDT 01/08/2017 3:56 PM CDT Narrative [facility] ([facility]) - 01/14/2017 6:10 PM CDT Performed at: [address] [id number] Junior [employer] School Teacher: Marjorie Scott MD, Phone: [phone] Performed at: [address] [id number] [employer] Teacher: Marjorie Scott MD, Phone: [phone] Specimen Comment: Source.............Cervix Specimen Comment: LMP / Prev Treat...VXI=[id number];None Specimen Comment: No. of containers..01 ThinPrep Vial us Mulugeta Kaba MD LAB - PATHOLOGY/CYTOLOGY ORD ERABLES Final Result [facility] [address] [place] [address] from Last 3 Months or Most Recently Relevant to Health Maintenance Insurance MEDICAID - [place] MEDICARE MEDICARE MEDICAID [facility] Advance Directives * Full Code (Latest Code Status on File) Date Activated Date Inactivated Comments 01/27/2014 4:34 PM 01/30/2014 8:10 PM * Full Code Date Activated Date Inactivated Comments 10/13/2013 3:55 PM 10/14/2013 2:49 PM * Full Code Date Activated Date Inactivated Comments 10/12/2013 9:17 PM 10/13/2013 3:55 PM
--- OUTSIDE RECORDS SUMMARY | 2024-09-25 17:32 | XMS_ITS | CONTINUITY OF CARE DOCUMENT ---
Author Name kam humphrey Address Unknown Organization [facility] Address [address] [place] [address] Phone [phone] Care Team Providers Care Range Aide Name Role Phone Mendy Maguire MD Unavailable [phone] Mendy Maguire MD Unavailable [phone] INSURANCE PROVIDERS Payer name Policy type / Coverage type Sobia red democrat [employer] [facility] [facility] Medicaid 1 [id number] [place] MED[place] Medicare [id number]
[2024-09-25 17:47] LABS: Influenza A QL RT-PCR Negative (Negative); Influenza B QL RT-PCR Negative (Negative); RSV RNA, RT-PCR Negative (Negative); SARS-CoV-2 RNA PCR Negative (Negative)
[2024-09-25 17:51] LABS: Band Neutrophils Percent 3 % (0-6); Lymphocytes Absolute Manual 0.61 K/mm3 (1.1-4.5); Monocytes Absolute Manual 0.61 K/mm3 (0.1-0.90); Monocytes Percent Manual 3 % (3-9); Neutrophils Absolute Manual 19.17 K/mm3 (1.7-7.2); Neutrophils Percent Manual 91 % (46-73); Platelet Estimate Adequate (Adequate); Schistocytes None Seen; Total Cells Counted 100
[2024-09-25] MEDS: LORazepam INJ (*CRX) 2 MG/ML VIAL 0.5 MG IV PUSH (18:20)
[2024-09-25 19:07] LABS: Alanine Aminotransferase 49 U/L (6-35); Albumin Level 4.8 g/dL (3.5-5.1); Alkaline Phosphatase 111 U/L (38-126); Anion Gap 18 mmol/L (4-12); Aspartate Amino Transferase 47 U/L (14-36); Bilirubin,Total 0.6 mg/dL (0.2-1.3); Blood Urea Nitrogen 7 mg/dL (7-17); Calcium 9.1 mg/dL (8.4-10.2); Carbon Dioxide 16 mmol/L (22-30); Chloride 102 mmol/L (98-107); Estimated CRCL calculation 95 ml/min; Estimated Glomerular Filt Rate > 60; Glucose 116 mg/dL (65-110); Lipase 71 U/L (23-300); Potassium 3.4 mmol/L (3.4-5.0); Sodium 136 mmol/L (137-145)
--- NOTE | 2024-09-25 19:11 | PC.NURSE ---
lab contacted to add on UDS
[2024-09-25 20:02] LABS: Amphetamine Screen Urine Negative (Negative); Barbiturate Screen Urine Negative (Negative); Benzodiazepines Screen Urine Negative (Negative); Cannabinoid Screen Urine Positive (Negative); Cocaine Screen Urine Negative (Negative); Methadone Screen Urine Negative (Negative); Opiate Screen Urine Negative (Negative); Phencyclidine Screen Urine Negative (Negative)
--- NOTE | 2024-09-25 20:49 | PC.NURSE ---
pt has been ambulatory to rest room multiple times.
[2024-09-25] MEDS: HALOPERIDOL LACTATE 5 MG/ML VIAL IM (21:20)
--- NOTE | 2024-09-25 22:30 | PC.NURSE ---
pt continues to remove self off the cardiac/nibp monitors. Pt ambulatory to restroom multiple times.
[2024-09-26] MEDS: SODIUM CHLORIDE 0.9% IV 1,000 ML 999 ML IV CONT (00:12)
[2024-09-26] MEDS: KETOROLAC 15 MG/ML VIAL (*BKC) IV PUSH (00:13)
[2024-09-26] MEDS: diphenhydrAMINE HCl INJ 50 MG/ML VIAL 25 MG IV PUSH (00:14)
[2024-09-26] MEDS: dexAMETHasone SOD PHOS INJ 10 MG/ML 1 ML VIAL IV PUSH (00:15)
[2024-09-26] MEDS: PROCHLORPERAZINE EDISYLATE 10 MG/2 ML VIAL IV PUSH (00:17)
[2024-09-26 01:39] VITALS: BP 107/76; PULSE 76; RESP 16; TEMP 37.1; O2SAT 98
== END 2024-09-26 01:47 | disposition home or self-care (01) ==
PROVIDERS: Physician Assistant; Emergency Provider Registered Nurse
DX: G43.909 Migraine, unspecified, not intractable, without status migrainosus (principal); K52.9 Noninfective gastroenteritis and colitis, unspecified; E86.0 Dehydration; Z20.822 Contact with and (suspected) exposure to COVID-19; F31.9 Bipolar disorder, unspecified; F41.9 Anxiety disorder, unspecified; F17.210 Nicotine dependence, cigarettes, uncomplicated; Z87.442 Personal history of urinary calculi; Z87.440 Personal history of urinary (tract) infections
CPT/HCPCS: 36415; 70450; 80053; 80307; 81001; 81025; 83690; 85025; 87637; 96361; 96372; 96374; 96375; 99284; A9270; J0780; J1100; J1200; J1630; J1885; J2060; J7030

== ENCOUNTER 2024-11-24 18:11 | Emergency (ER) | payer OTHER, SELFPAY ==
--- NOTE | ~2024-11-24 | CT_ITS ---
CLINICAL INDICATION: Abdominal pain and vomiting COMPARISON: 04/01/2014. TECHNIQUE: Multiple contiguous axial images of the and pelvis were performed following the administra tion of with 100 mL Omnipaque-350 intravenous contrast The dose-length product (DLP) was 430.79 mGy-cm. Automated exposure control and iterative reconstruction technique were employed. FINDINGS/OBSERVATIONS: Visualized lower thorax: The bilateral lung bases are clear. The heart is of normal size, without pericardial effusion. Small hiatal hernia is present. Liver: The liver demonstrates homogeneous enhancement and is not enlarged. Gallbladder and biliary system: The gallbladder is surgically absent. Pancreas: The pancreas enhances homogeneously without ductal dilatation. Spleen: The spleen enhances homogeneously and is not enlarged. Kidneys: The bilateral kidneys enhance symmetrically without hydronephrosis or renal calculi. Adrenal glands: 2.3 cm left adrenal soft tissue attenuation mass, for which nonemergent follow-up with contrast-enhan aurora cross-sectional imaging with adrenal mass protocol is recommended. The right adrenal gland is unremarkable. Gastrointestinal tract: Colonic diverticulosis without surrounding inflammatory change. Fecal stasis within the colon. Appendix: The air-filled appendix is of normal caliber (axial series, images 111 through 136) Vasculature: Unremarkable. Lymph nodes: No pathologically enlarged or morphologically suspicious lymph nodes within the retroperitoneum or at the root of the mesentery. Pelvic structures: The bladder is distended, and otherwise unremarkable. The uterus is anteverted and anteflexed. Bilateral sterilization devices are noted. Body wall and musculoskeletal: Small fat- containing umbilical hernia. No significant degenerative disease within the lower thoracic or lumbosacral spine. IMPRESSION: 2.3 cm left adrenal soft tissue attenuation mass, for which nonemergent follow-up with contrast-enhan aurora cross-sectional imaging with adrenal mass protocol is recommended. The remainder of the examination is otherwise unremarkable, and without acute pathology. Reviewed, dictated and finalized at location A. IMPRESSION: 2.3 cm left adrenal soft tissue attenuation mass, for which nonemergent follow- up with contrast-enhanced cross-sectional imaging with adrenal mass protocol is recommended. The remainder of the examination is otherwise unremarkable, and without acute p athology.
--- OUTSIDE RECORDS SUMMARY | 2024-11-24 18:13 | XMS_ITS | Patient Health Record ---
[facility] Address [address] [facility] [address] [place] [address] Care Team Providers Care Hose Suspender Cutter Name Role Phone Luis Boland Primary Care Provider Unavail able Allergies Allergen (clinical drug ingredient) Drug/Non Drug Allergy documented on EMR Reaction Allergy Type Onset Date Status Penicillin Unknown Drug Allergy Active Reason For Referral No Information Medications Medication SIG (Take, Route, Frequency, Duration) Notes Start Date End Date Status [place] 5/325 1 Tablet oral every 6 hrs; Duration: 05 days 05/11/2016 Active busPIRone HCl Active [...] Date Coverage End Date [employer] [place], [facility] [address] [place] [address] [phone] [id number] Marah Suazo Self - patient is the insured 6
--- OUTSIDE RECORDS SUMMARY | 2024-11-24 18:13 | XMS_ITS | Clinical Summary ---
Author Organization [facility] Address [address] [place] [address] Care Team Providers Care Academic Assistant Name Role Phone Unavailable Primary Care Provider Unavailabl e Allergies Active Allergy Reactions Criticality Noted Date Comments Penicillin V Hives 01/06/2019 Medications ondansetron 4 MG disintegrating tablet Take 1 tablet (4 mg total) by mouth every 8 (eight) hours as needed for Nausea. 20 tablet 9 Active Social History Tobacco Use Types Packs/Day Years Used Date Smoking Tobacco: Every Day Cigarettes Smokeless Tobacco: Never Alcohol Use Standard Drinks/Week Comments No 0 (1 standard drink = 0.6 oz pur e alcohol) AUDIT-C Answer Date Recorded Frequency of Alcohol Consumption Never 01/06/2019 Average Number of Drinks Not on file 019 Frequency of Binge Drinking Not on file 10/2018 Comments No Sex and Gender Information Value Date Recorded Sex Assigned at Not on file Legal Sex Female 9:26 PM CDT Gender Identity Not on file Sexual Orientation Not on file Last Filed Vital Signs Vital Sign Reading Time Taken Comments Blood Pressure 135/79 01/07/2019 3:45 AM CDT Pulse 94 01/07/2019 2:07 AM CDT Temperature 37.4 C (99.3 F) 01/06/2019 9:36 PM CDT Respiratory Rate 14 01/07/2019 2:07 AM CDT Oxygen Saturation 97% 01/07/2019 3:45 AM CDT Inhaled Oxygen Concentration - - Weight 63.3 kg (139 lb 9.6 oz) 01/06/2019 9:36 P M CDT Height 165.1 cm (5' 5) 01/06/2019 9:36 PM CDT Body Mass Index 23.23 01/06/2019 9:36 PM CDT Plan of Treatment Health Maintenance Due Date Last Done Comments Cervical Cancer Screening Pa p Smear (Age 30 to 64) Every 3 Years 1979 Annual Physical 11/23/1982 Hepatitis C 11/23/1997 Hepatitis B Vaccines (1 of 3 - 19+ 3-dose series) 11/23/1998 HPV Vaccines (1 - 3-dose SCD M series) 11/23/2006 Cervical Cancer Screening Pa p with HPV Testing (Age 30 to 64) Every 5 Years 11/23/2009 Cervical Cancer Screening with HPV 11/23/2009 Pneumococcal Vaccine: Pediat rics (0 to 5 Years) and At-Risk Patients (6 to 49 Years) (2 of 2 - PCV) 01/30/2015 01/30/2014 Mammogram Screening 2019 COVID-19 Vaccine (1 - 2023-2 5 season) 2024 DTaP, Tdap and Td Vaccines ( 2 - Td or Tdap) 01/23/2024 01/22/2014 PHQ-2 (Physician Poth) 05/03/2024 Meningococcal B Vaccine Aged Out No l onger eligible based on patient's age to complete this topic Meningococcal Vaccine Aged Out No carlos enrique jacob eligible based on patient's age to complete this topic RSV Immunizations Under 20 Months Aged Out No longer eligible based on patient's age to complete this topic Insurance [facility] [place] [address] MEDICARE AETNA
--- OUTSIDE RECORDS SUMMARY | 2024-11-24 18:13 | XMS_ITS | Clinical Summary ---
Author Organization [facility] Address [address] [place] [address] Phone Care Team Providers Care Electric Clock Mechanic Name Role Phone Selina Burrell APRN, TAIL TRIMMER Primary Care Provider + Maria Dolores Skelton MD Unavailable Rehana Moss APRN, TAIL TRIMMER Unavailable Allergies Active Allergy Reactions Criticality Noted Date Comments Penicillins Hives 05/25/2024 Medications ondansetron (ZOFRAN-ODT) 4 MG TABLET DISPERSIBLEIndi cations:Nausea and Vomiting Take 1 Tablet by mouth every 8 hours as needed for Nausea - 1st line. Indications: Nausea and Vomiting 10 Tablet Active Additional Information Patient not taking.Reported on 10/31/2024 busPIRone HCl (BUSPAR) 30 MG Tablet Take [...] mg by mouth 2 times daily. Active empagliflozin (Jardiance) 10 MG Tablet Take 1 Tablet by mouth daily for 30 days. 30 Tablet 5 12/01/19 25 Active carvedilol (COREG) 3.125 MG Tablet Take 1 Tablet by mouth 2 times daily. 180 Tablet 3 5 Active spironolactone (ALDACTONE) 25 MG Tablet Take 1 Tablet by mouth daily. 90 Tablet 3 5 Active Active Problems Problem Noted Date Diagnosed Date [...] Encounters Date Type Department Care Team Description 10/31/2024 1:30 PM CDT Office Visit [facility] - [facility]iology [facility] [address] [place] [address] Rehana Moss, CLIENT MANAGER, TAIL TRIMMER HFrEF (heart failure with reduced ejection fraction) (HCC) (Primary Dx); Nonischemic cardiomyopathy (HCC); Primary hypertension Discharge Disposition: Discharged to home or Selfcare 10/31/2024 Travel from Last 3 Months Family History Medical [...] drink = 0.6 oz pur e alcohol) [facility] Utilities Answer Date Recorded In the past 12 months has th e electric, gas, oil, or water company threatened to shut off services in your [...] any time in the past 12 m [facility], were you homeless or living in a retirement (including now)? No 05/26/2024 Sexually Active Control Partners Comments Not Currently Implant esure Comments No Sex and Gender Information Value Date Recorded Sex Assigned at Not on file Legal Sex Female 5:10 PM LIBRARY CONSULTANT Gender Identity Not on file Sexual Orientation Not on file Last Filed Vital Signs Vital Sign Reading Time Taken Comments Blood Pressure 120/76 10/31/2024 1:15 PM CDT Pulse 98 10/31/2024 1:15 PM CDT Temperature 36.5 C (97.7 F) 10/31/2024 1:15 PM CDT Respiratory Rate 16 10/31/2024 1:15 PM CDT Oxygen Saturation 98% 10/31/2024 1:15 PM CDT Inhaled Oxygen Concentration - - Weight 78 kg (172 lb) 10/31/2024 1:15 PM CDT Height 165.1 cm (5' 5) 10/31/2024 1:15 PM CDT Body Mass Index 28.62 10/31/2024 1:15 PM CDT Plan of Treatment Upcoming Encounters Date Type Department Care Team (Late st Contact Info) Description 03/06/2025 3:00 PM LIBRARY CONSULTANT Office Visit [facility] - Cardiology - [place] [address] [place] [address] Rehana Moss, CLIENT MANAGER, TAIL TRIMMER [address] [place] [address] Health Maintenance Due Date Last Done Comments Hepatitis C Virus (HCV) Screening 1979 Mammogram 1979 Human Papillomavirus (HPV) Immunization (1 - 3-dose series) 11/23/1994 Hepatitis B Immunization (1 of 3 - 19+ 3-dose series) 11/23/1998 Pap Smear 11/23/2000 Cervical Cancer Screening (CCS) 11/23/2009 HPV/Cotest 11/23/2009 Pneumococcal Immunization Combined (2 of 2 - PCV) 01/30/2015 01/30/2014 Discussion re Starting/Frequency of Mammograms 2019 SARS-COV-2 Immunization ( - 2023- season) 2024 05/24/2021, 04/22/2021 Influenza Immunization (#1) 01/01/202505/04, 03/05/2020, 03/06/2019, Additional history exists Respiratory Syncytial Virus (RSV) Immunization (Adult) (1 - 1-dose 75+ series) 11/23/2054 TdaP Immunization Completed 01/22/2014 Meningococcal Immunization (ACWY) Aged Out No longer eligible based on patient's age to complete this topic Rotavirus Immunization Aged Out No lo nger eligible based on patient's age to complete this topic Insurance MEDICARE C AETNA [facility] Advance Directives Documents on File Type Date Recorded Patient Retail Pharmacy Manager Expl anation [place] Surrogate Physician Appointment 05/26/2024 10:54 AM [facility], 05/26/2024 * Full Code (Latest Code Status on File) Date Activated Date Inactivated Comments 05/26/2024 4:58 AM CPR-Full Treat ment: FULL ARREST: Attempt Resuscitation/CPR wit intubation and mechanical ventilation. PRE-ARREST: Use entire range of life support measures to stabilize the patient. Care Teams Electric Clock Mechanic Relationship Specialty Start Date End Date Selina Burrell APRN, TAIL TRIMMER [address] [place] [address] PCP - General Family Medicine 05/25/24 Maria Dolores Skelton MD [address] [address] Consulting Physician Cardiology 06/19/24 Rehana Moss APRN, TAIL TRIMMER [address] [place] [address] Nurse Practitioner Cardiology 11/01/24
--- OUTSIDE RECORDS SUMMARY | 2024-11-24 18:13 | XMS_ITS | Patient Health Record ---
Author Organization [facility] Address [address] [place] [address] Care Team Providers Care Noise Abatement Engineer Name Role Phone Ely Eliseo Primary Care Provider Habib, Arif Unavailable [phone] Allergies Allergen (clinical drug ingredient) Drug/Non Drug Allergy documented on EMR Reaction Allergy Type Onset Date Status Penicillin G Benzathine hives Drug Allergy Active Reason For Referral No Information Medications Medication SIG (Take, Route, Frequency, Duration) Notes Start Date End Date Status busPIRone HCl 30 MG 1 tablet Orally Twic e a day; Duration: 30 days Active Influenza Vac Split Quad 0.5 ML as directed Intramuscular 03/05/2020 Un known hydrOXYzine HCl 50 MG 1 tablet as needed for anxiety Orally every 6 hrs; Duration: 30 days Active traZODone HCl 150 MG 1 tablet at bedtime Orally at night; Duration: 30 days Active Sertraline HCl 100 MG 1 tablet Orally tw ice a day; Duration: 30 days Active QUEtiapine Fumarate 100 MG 1 tablet Orally twice daily; Duration: 30 days Active Venlafaxine HCl 75 MG 1 tablet with food Orally twice a day; Duration: 30 days Active Immunizations Vaccine Route Administration Date Status Comme nts FLU VAC NO PRSV 4VAL 6 mo+ IM Intramuscular 03/05/2020 Administered Patient tolerat ed well. VIS date 12/15/18. Social History Sex Assigned At : Social History Observation Description Sex Assigned At Female Problems Problem Type SNOMED Code ICD Code Onset Dates Problem Status W/U Status Risk Notes Problem Tobacco user (068473523) Nicotine dependence, unspecified, uncomplicated (F17.200) Active confirmed Problem Generalized anxiety disorder (04532995) Generalized anxiety disorder (F41.1) Active confirmed Problem Depression (558200296) Depression (F32.9) 0 Active confirmed Problem Anxiety (59135545) Anxiety (F41.9) Active confirmed Problem Bipolar 1 disorder (628687650) Bipolar 1 disorder (F31.9) 0 Active confirmed Problem Panic disorder (606126294) Panic disorder (F41.0) Active confirmed Problem Manic bipolar I disorder (29329269) Manic bipolar I disorder (F31.10) 0 Active confirmed Problem Tobacco use (310586645) Tobacco use disorder (F17.200) Active confirmed Vital Signs Height 64 in 11/14/2024 Weight 160 lbs 11/14/2024 BMI 27.46 kg/m2 11/14/2024 Encounters Encounter Location Date Provider Diagnosis [address] [address] 12/28/2023 Arif Habib Nicotine dependence, unspecified, uncomplicated F17.200 ; Bipolar 1 disorder F31.9 ; Panic disorder F41.0 and Generalized anxiety disorder F41.[address] [address] 04/11/2024 Arif Habib Nicotine dependence, unspecified, uncomplicated F17.200 ; Bipolar 1 disorder F31.9 ; Panic disorder F41.0 and Generalized anxiety disorder F41.[address] [address] 08/29/2024 Arif Habib Nicotine dependence, unspecified, uncomplicated F17.200 ; Bipolar 1 disorder F31.9 ; Panic disorder F41.0 and Generalized anxiety disorder F41.[address] [address] 11/14/2024 Arif Habib Nicotine dependence, unspecified, uncomplicated F17.200 ; Bipolar 1 disorder F31.9 ; Panic disorder F41.0 and Generalized anxiety disorder F41.[address] [address] 11/25/2023 Arif Habib [address] [place] [address] [facility] [address] [place] [address] 11/13/2024 [facility] Gonzalo Assessments Encounter Date Diagnosis (ICD Code) Assessment Notes Treatment Notes Treatment Clinical Notes Section Notes 04/11/2024 Nicotine dependence, unspecified, uncomplicated (ICD-10 - F17.200) 08/29/2024 Nicotine dependence, unspecified, uncomplicated (ICD-10 - F17.200) 11/14/2024 Nicotine dependence, unspecified, uncomplicated (ICD-10 - F17.200) 12/28/2023 Nicotine dependence, unspecified, uncomplicated (ICD-10 - F17.200) 12/28/2023 Bipolar 1 disorder (ICD-10 - F31.9) Risk & benefits discussed. Continue current treatment. Supportive treatment provided. 11/14/2024 Bipolar 1 disorder (ICD-10 - F31.9) Risk & benefits discussed. Continue current treatment. Supportive treatment provided. 08/29/2024 Bipolar 1 disorder (ICD-10 - F31.9) Risk & benefits discussed. Continue current treatment. Supportive treatment provided. 04/11/2024 Bipolar 1 disorder (ICD-10 - F31.9) Risk & benefits discussed. Continue current treatment. Supportive treatment provided. 04/11/2024 Panic disorder (ICD-10 - F41.0) 08/29/2024 Panic disorder (ICD-10 - F41.0) 11/14/2024 Panic disorder (ICD-10 - F41.0) 12/28/2023 Panic disorder (ICD-10 - F41.0) 12/28/2023 Generalized anxiety disorder (ICD-10 - F41.1) 11/14/2024 Generalized anxiety disorder (ICD-10 - F41.1) 08/29/2024 Generalized anxiety disorder (ICD-10 - F41.1) 04/11/2024 Generalized anxiety disorder (ICD-10 - F41.1) Plan Of Treatment No Information Insurance Providers Payer Name Payer Address Payer Phone Subscriber Number Group Number Insured Name Patient Relationship to Insured Coverage Start Date Coverage End Date [employer] Better [employer] Medicare-[facility] [address] [address] [place] [address] [id number] Marah Suazo Self - patient is the insured 1 MEDICAID [address] [place] [address] [id number] Mraah Suazo Self - patient is the insured 0 1 [facility] [address] [place] [address] [id number] Marah Suazo Self - patient is the insured 1 Medical (General) History Medical History History ICD Code Anxiety Panic disorder Manic bipolar I disorder Depression Surgical History Surgery Date(Month/Year) biopsy cervix 2003 gallbladder 2014 Hospitalization History Reason Date(Month/Year) [facility] 06/2023 [place] [facility] 10/2019 [facility] May 2022
[2024-11-24 18:29] VITALS: BP 176/107; PULSE 107; RESP 17; TEMP 36.4; O2SAT 97
--- OUTSIDE RECORDS SUMMARY | 2024-11-24 23:07 | XMS_ITS | Clinical Summary ---
Author Organization [facility] Address [address] [place] [address] Care Team Providers Care Manager Flight Operations Name Role Phone Unavailable Primary Care Provider [...] Td or Tdap) 01/23/2024 01/22/2014 PHQ-2 (Physician [place]) 05/03/2024 Meningococcal B Vaccine Aged Out No l onger eligible based on patient's age to complete this topic Meningococcal Vaccine Aged Out No carlos enrique jacob eligible based on patient's age to complete this topic RSV Immunizations Under 20 Months Aged Out No longer eligible based on patient's age to complete this topic Insurance MEDICAID MEDICARE AETNA
--- OUTSIDE RECORDS SUMMARY | 2024-11-24 23:07 | XMS_ITS | Clinical Summary ---
Author Organization [facility] Address [address] [place] [address] Phone Care Team Providers Care Cement Or Concrete Finishing Supervisor Name Role Phone Selina Burrell APRN, MEDICAL RECORDS CUSTODIAN Primary Care Provider + Maria Dolores Skelton MD Unavailable Rehana Moss APRN, MEDICAL RECORDS CUSTODIAN Unavailable Allergies Active Allergy Reactions Criticality Noted [...] Description 10/31/2024 1:30 PM CDT Office Visit [facility] - Cardiology [facility] [address] [place] [address] Rehana Moss, NON DESTRUCTIVE TESTING SPECIALIST, MEDICAL RECORDS CUSTODIAN HFrEF (heart failure with reduced ejection fraction) [...] drink = 0.6 oz pur e alcohol) [facility] Utilities Answer Date Recorded In the past [...] any time in the past 12 m [facility], were you homeless or living in a nursing home (including now)? No 05/26/2024 Sexually Active Control Partners Comments Not Currently Implant esure Comments No Sex and Gender Information Value Date Recorded Sex Assigned at Not on file Legal Sex Female 5:10 PM TC OPERATOR Gender Identity Not on file Sexual Orientation [...] st Contact Info) Description 03/06/2025 3:00 PM TC OPERATOR Office Visit [facility] - Cardiology - [place] [address] [place] [address] Rehana Moss, NON DESTRUCTIVE TESTING SPECIALIST, MEDICAL RECORDS CUSTODIAN [address] [place] [address] Health Maintenance Due Date Last [...] complete this topic Insurance MEDICARE C AETNA [facility] Advance Directives Documents on File Type Date Recorded 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 PRE-ARREST: Use entire range of life support measures to stabilize the patient. Care Teams Cement Or Concrete Finishing Supervisor Relationship Specialty Start Date End Date Selina Burrell APRN, MEDICAL RECORDS CUSTODIAN [address] [place] [address] PCP - General Family Medicine 05/25/24 Maria Dolores Skelton MD [address] [address] Consulting Physician Cardiology 06/19/24 Rehana Moss APRN, MEDICAL RECORDS CUSTODIAN [address] [place] [address] Nurse Practitioner Cardiology 11/01/24
--- OUTSIDE RECORDS SUMMARY | 2024-11-24 23:07 | XMS_ITS | Patient Health Record ---
Author Organization [facility] Address [address] [place] [address] Care Team Providers Care Well Control Instructor Name Role Phone Ely Eliseo Primary Care Provider [phone] Habib, Arif Unavailable [phone] Allergies Allergen (clinical drug ingredient) Drug/Non Drug [...] W/U Status Risk Notes Problem Tobacco user (870820436) Nicotine dependence, unspecified, uncomplicated (F17.200) Active confirmed Problem Generalized anxiety disorder (55448992) Generalized anxiety disorder (F41.1) Active confirmed Problem Depression (828821514) Depression (F32.9) 0 Active confirmed Problem Anxiety (09157651) Anxiety (F41.9) Active confirmed Problem Bipolar 1 disorder (441930816) Bipolar 1 disorder (F31.9) 0 Active confirmed Problem Panic disorder (763077011) Panic disorder (F41.0) Active confirmed Problem Manic bipolar I disorder (24707829) Manic bipolar I disorder (F31.10) 0 Active confirmed Problem Tobacco use (200487413) Tobacco use disorder (F17.200) Active confirmed Vital Signs Height 64 in 11/14/2024 Weight 160 lbs 11/14/2024 BMI 27.46 kg/m2 11/14/2024 Encounters Encounter Location Date Provider Diagnosis [address] [address] 12/28/2023 Arif Habib Nicotine dependence, unspecified, uncomplicated F17.200 ; Bipolar 1 disorder F31.9 ; Panic disorder F41.0 and Generalized anxiety disorder F41.[address] [address] 04/11/2024 Arif Habib Nicotine dependence, unspecified, uncomplicated F17.200 ; Bipolar 1 disorder F31.9 ; Panic disorder F41.0 and Generalized anxiety disorder F41.[address] [address] 08/29/2024 Arif Habib Nicotine dependence, unspecified, uncomplicated F17.200 ; Bipolar 1 disorder F31.9 ; Panic disorder F41.0 and Generalized anxiety disorder F41.[address] [address] 11/14/2024 Arif Habib Nicotine dependence, unspecified, uncomplicated F17.200 ; Bipolar 1 disorder F31.9 ; Panic disorder F41.0 and Generalized anxiety disorder F41.[address] [address] 11/25/2023 Arif Habib [address] [place] [address] [facility] [address] [place] [address] 11/13/2024 [facility] Gonzalo Assessments Encounter Date Diagnosis (ICD Code) Assessment Notes Treatment Notes Treatment Clinical Notes Section Notes 12/28/2023 Nicotine dependence, unspecified, uncomplicated (ICD-10 - F17.200) 04/11/2024 Nicotine dependence, unspecified, uncomplicated (ICD-10 - F17.200) 08/29/2024 Nicotine dependence, unspecified, uncomplicated (ICD-10 - F17.200) 11/14/2024 Nicotine dependence, unspecified, uncomplicated (ICD-10 - F17.200) 11/14/2024 Bipolar 1 disorder (ICD-10 - F31.9) [...] F41.0) 11/14/2024 Panic disorder (ICD-10 - F41.0) 11/14/2024 Generalized anxiety disorder (ICD-10 - F41.1) 08/29/2024 Generalized anxiety disorder (ICD-10 - F41.1) 04/11/2024 Generalized anxiety disorder (ICD-10 - F41.1) 12/28/2023 Generalized anxiety disorder (ICD-10 - F41.1) Plan Of Treatment No Information Insurance Providers Payer Name Payer Address Payer Phone Subscriber Number Group Number Insured Name Patient Relationship to Insured Coverage Start Date Coverage End Date [employer] Better [employer] Medicare-[facility] [address] [address] [place] [address] [id number] Marah Suazo Self - patient is the insured 1 MEDICAID [address] [place] [address] [id number] Marah Suazo Self - patient is the insured 0 1 [facility] [address] [place] [address] [id number] Marah Suazo Self - patient is the insured 1 Medical (General) History Medical History History ICD Code Anxiety Panic disorder Manic bipolar I disorder Depression Surgical History Surgery Date(Month/Year) biopsy cervix 2003 gallbladder 2014 Hospitalization History Reason Date(Month/Year) [facility] 06/2023 [place] [facility] 10/2019 [facility] May 2022
[2024-11-24 23:16] LABS: Add Urine Microscopic? YES; Appearance Urine Cloudy (Clear); Glucose Urine UA 3+ mg/dL (Negative); Leukocyte Esterase Ur Negative LEU/UL (Negative); Nitrate Urine Negative (Negative); Non Pathogenic Casts 0-2; Specific Grav Ur 1.031 (1.001-1.035)
[2024-11-24 23:48] LABS: BEDSIDEPREGUCG Negative (Negative)
--- NOTE | 2024-11-24 23:48 | ED_ITS ---
HPI - Nausea/Vomiting/Diarrhea General Chief complaint: Nausea/Vomiting/Diarrhea <Odette Rey PA-C - Last Filed: 11/26/24 14:07> Stated complaint: nausea/vomiting/diarrhea <NATALIE Marrero Last Filed: 11/26/24 14:07> Time Seen by Provider: 11/24/24 22:35 <NATALIE Marrero Last Filed: 11/26/24 14:07> Source: patient <Odette NATALIE Cooper Last Filed: 11/26/24 14:07> Mode of arrival: ambulatory <NATALIE Marrero Last Filed: 11/26/24 14:07> Limitations: no limitations <NATALIE Marrero Last Filed: 11/26/24 14:07> History of Present Illness HPI Narrative: This is a 44-year-old female that presents to the emergency department for nausea, vomiting and diarrhea. Reports she has not been able to keep much down. Reports associated abdominal discomfort. Denies fevers. <NATALIE Marrero Last Filed: 11/26/24 14:07> Related Data Allergies/Adverse reactions: Allergies Allergy/AdvReac Type Severity Reaction Status Date / Time Penicillins Allergy Mild Unknown Verified 11/24/24 18:34 <NATALIE Marrero Last Filed: 11/26/24 14:07> Review of Systems 2 Review of Systems: All systems reviewed & are unremarkable except as noted in HPI and below <Odette Rey PA-C - Last Filed: 11/26/24 14:07> [facility] Past Medical History Medical History: Medical History Bipolar disorder Sleep disorder Anxiety Manic depressive disorder UTI (urinary tract infection) Kidney stone <NATALIE Marrero Last Filed: 11/26/24 14:07> Surgical History Surgical History: Surgical History History of cervical biopsy <NATALIE Marrero Last Filed: 11/26/24 14:07> Social History Social History: Social History Additional smoking assessment comments: 1/2 PPD <Odette Rey PA-C - Last Filed: 11/26/24 14:07> Exam 2 Narrative: GENERAL: Well-appearing, well-nourished, and in no acute distress. HEAD: Normocephalic, atraumatic. EYES: EOMI. CHEST: Clear to auscultation. No respiratory distress. No wheezes rales or rhonchi HEART: Regular rate and rhythm. No murmur heard. Normal peripheral pulses. ABDOMEN: Soft, nontender, nondistended, normal active bowel sounds. EXTREMITIES: Normal range of motion. No edema. SKIN: Warm, dry, no rash. NEURO: No focal deficits. Alert and oriented x3. PSYCH: Normal mood and affect <Odette Rey PA-C - Last Filed: 11/26/24 14:07> Course Course Emergency Course: Patient signed out to me pending CT scan and repeat BMP after receiving IV fluids and electrolyte repletion. Repeat BMP is improved. CT scan as below. I did reassess patient at bedside. She is sleeping, resting comfortably. Requires loud verbal stimuli to arouse. When asked how she is feeling, she initially does not give a response. I asked again and she put her thumb out. I asked if this was thumbs-up her thumbs down and she states thumbs down. She states she has a headache. Will give Tylenol, ketorolac. Otherwise stable for discharge. <Odette Rey PA-C - Last Filed: 11/26/24 14:07> Patient signed out to me pending CT scan and repeat BMP after receiving IV fluids and electrolyte repletion. Repeat BMP is improved. CT scan as below. I did reassess patient at bedside. She is sleeping, resting comfortably. Requires loud verbal stimuli to arouse. When asked how she is feeling, she initially does not give a response. I asked again and she put her thumb out. I asked if this was thumbs-up her thumbs down and she states thumbs down. She states she has a headache. Will give Tylenol ketorolac. Otherwise stable for discharge. <Jyotsna Arredondo MD - Last Filed: 11/25/24 09:32> Vital Signs Vital signs: Vital Signs Temperature 97.5 F L 11/24/24 18:29 Pulse Rate 107 H 11/24/24 18:29 Respiratory Rate 17 11/24/24 18:29 Blood Pressure 176/107 H 11/24/24 18:29 Pulse Oximetry 97 11/24/24 18:29 Oxygen Delivery Room Air 11/24/24 18:29 Temperature 97.5 F L 11/24/24 18:29 Pulse Rate 116 H 11/25/24 05:11 Respiratory Rate 18 11/25/24 05:11 Blood Pressure 161/91 H 11/25/24 05:11 Pulse Oximetry 100 11/25/24 05:11 Oxygen Delivery Room Air 11/24/24 18:29 <Odette Rey PA-C - Last Filed: 11/26/24 14:07> Vital Signs Temperature 97.5 F L 11/24/24 18:29 Pulse Rate 107 H 11/24/24 18:29 Respiratory Rate 17 11/24/24 18:29 Blood Pressure 176/107 H 11/24/24 18:29 Pulse Oximetry 97 11/24/24 18:29 Oxygen Delivery Room Air 11/24/24 18:29 Temperature 97.5 F L 11/24/24 18:29 Pulse Rate 116 H 11/25/24 05:11 Respiratory Rate 18 11/25/24 05:11 Blood Pressure 161/91 H 11/25/24 05:11 Pulse Oximetry 100 11/25/24 05:11 Oxygen Delivery Room Air 11/24/24 18:29 <Jyotsna Arredondo MD - Last Filed: 11/25/24 09:32> MDM - Nausea/Vomiting/Diarrhea MDM Narrative Medical decision making narrative: Patient presents the emergency department for abdominal pain, nausea and vomiting. Also endorsing diarrhea. Patient is afebrile and nontoxic appearing. Tachycardic upon arrival, this improved with IV fluids. CBC with leukocytosis to 20.3, likely due to vomiting. Metabolic panel with evidence of dehydration. Patient hydrated with 2 L of IV fluids, potassium and magnesium replaced. Urine without evidence of infection. test is negative. Drug screen positive for cannabinoids. CT abdomen pelvis obtained for further evaluation. Care taken over by Dr. Arredondo pending imaging results <Odette Rey PA-C - Last Filed: 11/26/24 14:07> Differential Diagnosis Differential diagnosis: Likely food poisoning, gastroenteritis and dehydration <Odette Rey PA-C - Last Filed: 11/26/24 14:07> Lab Data Attestation: I reviewed the patient's lab results. <Odette Rey PA-C - Last Filed: 11/26/24 14:07> Result diagrams: 11/24/24 23:46 11/25/24 04:27 <Odette Rey PA-C - Last Filed: 11/26/24 14:07> Labs: Lab Results 11/24/24 11/24/24 11/24/24 Range/Units 23:04 23:46 23:47 WBC 20.3 H (4.5-10.0) K/mm3 RBC 5.11 (4.2-5.4) M/mm3 Hgb 14.6 (12.0-15.0) g/dL Hct 43.1 (37.0-47.0) % MCV 84.3 (80-100) fl MCH 28.6 (26-34) pg MCHC 33.9 (32-36) g/dl RDW 13.2 (11.5-14.5) % Plt Count 361 (150-375) k/mm3 MPV 9.2 (7.4-10.4) fl Immature Gran % (Auto) 0.8 H (0-0.5) % Neut % (Auto) 88.4 H (45.5-73.1) % Lymph % (Auto) 5.9 L (18.3-44.2) % [place] % (Auto) 3.2 (2.6-8.5) % Eos % (Auto) 1.3 (0-4.4) % Baso % (Auto) 0.4 (0.2-1.2) % Lymph # (Auto) 1.20 (0.9-3.2) K/mm3 [place] # (Auto) 0.7 H (0.1-0.6) K/mm3 Eos # (Auto) 0.3 (0-0.3) K/mm3 Baso # (Auto) 0.1 (0.0-0.1) K/mm3 Abs Immat Gran (auto) 0.17 H (0.00-0.031) K/mm3 Absolute Neuts (auto) 17.9 H (1.3-6.7) K/mm3 Absolute Nucleated RBC 0.000 (0.0-0.012) K/mm3 Nucleated RBC % 0.0 (0.0-0.2) % Sodium 131 L (137-145) mmol/L Potassium 3.1 L (3.4-5.0) mmol/L Chloride 95 L (98-107) mmol/L Carbon Dioxide 20 L (22-30) mmol/L Anion Gap 16 H (4-12) mmol/L BUN 7 (7-17) mg/dL Creatinine 0.75 (0.7-1.0) mg/dL Estim Creat Clear Calc 83 ml/min Estimated GFR > 60 (59 - ) Glucose 134 H (65-110) mg/dL Calcium 9.8 (8.4-10.2) mg/dL Magnesium 1.7 (1.6-2.3) mg/dL Total Bilirubin 0.9 (0.2-1.3) mg/dL AST 41 H (14-36) U/L ALT 33 (6-35) U/L Alkaline Phosphatase 118 (38-126) U/L Total Creatine Kinase 238 H (30-135) U/L Total Protein 9.1 H (6.3-8.2) g/dL Albumin 4.9 (3.5-5.1) g/dL Lipase 52 (23-300) U/L Urine Color Yellow (Yellow) Urine Appearance Cloudy H (Clear) Urine pH 5.5 (5.0-9.0) Ur Specific [place] 1.031 (1.001-1.035) Urine Protein 2+ H (Negative) mg/dL Urine Glucose (UA) 3+ H (Negative) mg/dL Urine Ketones 2+ H (Negative) mg/dL Ur Blood (Man) 3+ H (Negative) Urine Nitrate Negative (Negative) Urine Bilirubin Negative (Negative) Urine Urobilinogen 0.2 (<2.0) mg/dL Leukocyte Esterase Rfl Negative (Negative) KASEY/UL Urine RBC 11-20 H (0-2) /hpf Urine WBC 0-5 (0-3) /hpf Ur Squamous Epith Cells Moderate (Few) /hpf Urine Bacteria 1+ H /hpf Urine Casts 0-2 POC Urine HCG, Qual Negative (Negative) Urine Opiates Screen Negative (Negative) Urine Methadone Screen Negative (Negative) Ur Barbiturates Screen Negative (Negative) Ur Phencyclidine Scrn Negative (Negative) Ur Amphetamine Screen Negative (Negative) U Benzodiazepines Scrn Negative (Negative) Urine Cocaine Screen Negative (Negative) U Cannabinoids Screen Positive A (Negative) 11/25/24 Range/Units 04:27 WBC (4.5-10.0) K/mm3 RBC (4.2-5.4) M/mm3 Hgb (12.0-15.0) g/dL Hct (37.0-47.0) % MCV (80-100) fl MCH (26-34) pg MCHC (32-36) g/dl RDW (11.5-14.5) % Plt Count (150-375) k/mm3 MPV (7.4-10.4) fl Immature Gran % (Auto) (0-0.5) % Neut % (Auto) (45.5-73.1) % Lymph % (Auto) (18.3-44.2) % [place] % (Auto) (2.6-8.5) % Eos % (Auto) (0-4.4) % Baso % (Auto) (0.2-1.2) % Lymph # (Auto) (0.9-3.2) K/mm3 [place] # (Auto) (0.1-0.6) K/mm3 Eos # (Auto) (0-0.3) K/mm3 Baso # (Auto) (0.0-0.1) K/mm3 Abs Immat Gran (auto) (0.00-0.031) K/mm3 Absolute Neuts (auto) (1.3-6.7) K/mm3 Absolute Nucleated RBC (0.0-0.012) K/mm3 Nucleated RBC % (0.0-0.2) % Sodium 133 L (137-145) mmol/L Potassium 3.5 (3.4-5.0) mmol/L Chloride 100 (98-107) mmol/L Carbon Dioxide 23 (22-30) mmol/L Anion Gap 10 (4-12) mmol/L BUN 5 L (7-17) mg/dL Creatinine 0.67 L (0.7-1.0) mg/dL Estim Creat Clear Calc 93 ml/min Estimated GFR > 60 (59 - ) Glucose 133 H (65-110) mg/dL Calcium 9.4 (8.4-10.2) mg/dL Magnesium (1.6-2.3) mg/dL Total Bilirubin (0.2-1.3) mg/dL AST (14-36) U/L ALT (6-35) U/L Alkaline Phosphatase (38-126) U/L Total Creatine Kinase (30-135) U/L Total Protein (6.3-8.2) g/dL Albumin (3.5-5.1) g/dL Lipase (23-300) U/L Urine Color (Yellow) Urine Appearance (Clear) Urine pH (5.0-9.0) Ur Specific [place] (1.001-1.035) Urine Protein (Negative) mg/dL Urine Glucose (UA) (Negative) mg/dL Urine Ketones (Negative) mg/dL Ur Blood (Man) (Negative) Urine Nitrate (Negative) Urine Bilirubin (Negative) Urine Urobilinogen (<2.0) mg/dL Leukocyte Esterase Rfl (Negative) KASEY/UL Urine RBC (0-2) /hpf Urine WBC (0-3) /hpf Ur Squamous Epith Cells (Few) /hpf Urine Bacteria /hpf Urine Casts POC Urine HCG, Qual (Negative) Urine Opiates Screen (Negative) Urine Methadone Screen (Negative) Ur Barbiturates Screen (Negative) Ur Phencyclidine Scrn (Negative) Ur Amphetamine Screen (Negative) U Benzodiazepines Scrn (Negative) Urine Cocaine Screen (Negative) U Cannabinoids Screen (Negative) <Odette Rey PA-C - Last Filed: 11/26/24 14:07> Lab Results 11/24/24 11/24/24 11/24/24 Range/Units 23:04 23:46 23:47 WBC 20.3 H (4.5-10.0) K/mm3 RBC 5.11 (4.2-5.4) M/mm3 Hgb 14.6 (12.0-15.0) g/dL Hct 43.1 (37.0-47.0) % MCV 84.3 (80-100) fl MCH 28.6 (26-34) pg MCHC 33.9 (32-36) g/dl RDW 13.2 (11.5-14.5) % Plt Count 361 (150-375) k/mm3 MPV 9.2 (7.4-10.4) fl Immature Gran % (Auto) 0.8 H (0-0.5) % Neut % (Auto) 88.4 H (45.5-73.1) % Lymph % (Auto) 5.9 L (18.3-44.2) % [place] % (Auto) 3.2 (2.6-8.5) % Eos % (Auto) 1.3 (0-4.4) % Baso % (Auto) 0.4 (0.2-1.2) % Lymph # (Auto) 1.20 (0.9-3.2) K/mm3 [place] # (Auto) 0.7 H (0.1-0.6) K/mm3 Eos # (Auto) 0.3 (0-0.3) K/mm3 Baso # (Auto) 0.1 (0.0-0.1) K/mm3 Abs Immat Gran (auto) 0.17 H (0.00-0.031) K/mm3 Absolute Neuts (auto) 17.9 H (1.3-6.7) K/mm3 Absolute Nucleated RBC 0.000 (0.0-0.012) K/mm3 Nucleated RBC % 0.0 (0.0-0.2) % Sodium 131 L (137-145) mmol/L Potassium 3.1 L (3.4-5.0) mmol/L Chloride 95 L (98-107) mmol/L Carbon Dioxide 20 L (22-30) mmol/L Anion Gap 16 H (4-12) mmol/L BUN 7 (7-17) mg/dL Creatinine 0.75 (0.7-1.0) mg/dL Estim Creat Clear Calc 83 ml/min Estimated GFR > 60 (59 - ) Glucose 134 H (65-110) mg/dL Calcium 9.8 (8.4-10.2) mg/dL Magnesium 1.7 (1.6-2.3) mg/dL Total Bilirubin 0.9 (0.2-1.3) mg/dL AST 41 H (14-36) U/L ALT 33 (6-35) U/L Alkaline Phosphatase 118 (38-126) U/L Total Creatine Kinase 238 H (30-135) U/L Total Protein 9.1 H (6.3-8.2) g/dL Albumin 4.9 (3.5-5.1) g/dL Lipase 52 (23-300) U/L Urine Color Yellow (Yellow) Urine Appearance Cloudy H (Clear) Urine pH 5.5 (5.0-9.0) Ur Specific [place] 1.031 (1.001-1.035) Urine Protein 2+ H (Negative) mg/dL Urine Glucose (UA) 3+ H (Negative) mg/dL Urine Ketones 2+ H (Negative) mg/dL Ur Blood (Man) 3+ H (Negative) Urine Nitrate Negative (Negative) Urine Bilirubin Negative (Negative) Urine Urobilinogen 0.2 (<2.0) mg/dL Leukocyte Esterase Rfl Negative (Negative) KASEY/UL Urine RBC 11-20 H (0-2) /hpf Urine WBC 0-5 (0-3) /hpf Ur Squamous Epith Cells Moderate (Few) /hpf Urine Bacteria 1+ H /hpf Urine Casts 0-2 POC Urine HCG, Qual Negative (Negative) Urine Opiates Screen Negative (Negative) Urine Methadone Screen Negative (Negative) Ur Barbiturates Screen Negative (Negative) Ur Phencyclidine Scrn Negative (Negative) Ur Amphetamine Screen Negative (Negative) U Benzodiazepines Scrn Negative (Negative) Urine Cocaine Screen Negative (Negative) U Cannabinoids Screen Positive A (Negative) 11/25/24 Range/Units 04:27 WBC (4.5-10.0) K/mm3 RBC (4.2-5.4) M/mm3 Hgb (12.0-15.0) g/dL Hct (37.0-47.0) % MCV (80-100) fl MCH (26-34) pg MCHC (32-36) g/dl RDW (11.5-14.5) % Plt Count (150-375) k/mm3 MPV (7.4-10.4) fl Immature Gran % (Auto) (0-0.5) % Neut % (Auto) (45.5-73.1) % Lymph % (Auto) (18.3-44.2) % [place] % (Auto) (2.6-8.5) % Eos % (Auto) (0-4.4) % Baso % (Auto) (0.2-1.2) % Lymph # (Auto) (0.9-3.2) K/mm3 [place] # (Auto) (0.1-0.6) K/mm3 Eos # (Auto) (0-0.3) K/mm3 Baso # (Auto) (0.0-0.1) K/mm3 Abs Immat Gran (auto) (0.00-0.031) K/mm3 Absolute Neuts (auto) (1.3-6.7) K/mm3 Absolute Nucleated RBC (0.0-0.012) K/mm3 Nucleated RBC % (0.0-0.2) % Sodium 133 L (137-145) mmol/L Potassium 3.5 (3.4-5.0) mmol/L Chloride 100 (98-107) mmol/L Carbon Dioxide 23 (22-30) mmol/L Anion Gap 10 (4-12) mmol/L BUN 5 L (7-17) mg/dL Creatinine 0.67 L (0.7-1.0) mg/dL Estim Creat Clear Calc 93 ml/min Estimated GFR > 60 (59 - ) Glucose 133 H (65-110) mg/dL Calcium 9.4 (8.4-10.2) mg/dL Magnesium (1.6-2.3) mg/dL Total Bilirubin (0.2-1.3) mg/dL AST (14-36) U/L ALT (6-35) U/L Alkaline Phosphatase (38-126) U/L Total Creatine Kinase (30-135) U/L Total Protein (6.3-8.2) g/dL Albumin (3.5-5.1) g/dL Lipase (23-300) U/L Urine Color (Yellow) Urine Appearance (Clear) Urine pH (5.0-9.0) Ur Specific [place] (1.001-1.035) Urine Protein (Negative) mg/dL Urine Glucose (UA) (Negative) mg/dL Urine Ketones (Negative) mg/dL Ur Blood (Man) (Negative) Urine Nitrate (Negative) Urine Bilirubin (Negative) Urine Urobilinogen (<2.0) mg/dL Leukocyte Esterase Rfl (Negative) KASEY/UL Urine RBC (0-2) /hpf Urine WBC (0-3) /hpf Ur Squamous Epith Cells (Few) /hpf Urine Bacteria /hpf Urine Casts POC Urine HCG, Qual (Negative) Urine Opiates Screen (Negative) Urine Methadone Screen (Negative) Ur Barbiturates Screen (Negative) Ur Phencyclidine Scrn (Negative) Ur Amphetamine Screen (Negative) U Benzodiazepines Scrn (Negative) Urine Cocaine Screen (Negative) U Cannabinoids Screen (Negative) <Jyotsna Arredondo MD - Last Filed: 11/25/24 09:32> Imaging Data Radiologist's impression: CT Stat Rad Abd/Pelvis: There is an indeterminate 2.3 cm left adrenal nodule. Recommend further evaluation with adrenal mass protocol CT or MRI on a nonemergent basis. The remaining solid organs are within normal limits. No bowel obstruction. Normal appendix. No fracture. No incidental findings. < Jyotsna Arredondo MD - Last Filed: 11/25/24 09:32> Critical Care Time Critical Care Time Critical Care Time: No <Odette Rey PA-C - Last Filed: 11/26/24 14:07> Discharge Plan Discharge Clinical Impression: Gastroenteritis, Acute dehydration, Hypokalemia Headache Qualifiers: Headache type: unspecified Headache chronicity pattern: acute headache I ntractability: not intractable Qualified Code(s): R51.9 - Headache, unspecified <Odette Rey PA-C - Last Filed: 11/26/24 14:07> Patient Disposition: Home <Odette Rey PA-C - Last Filed: 11/26/24 14:07> Condition: Stable <Odette Rey PA-C - Last Filed: 11/26/24 14:07> Instructions: Dehydration (DC), Gastroenteritis (ED), Acute Headache (ED), Acute Nausea and Vomiting (ED) <Odette Rey PA-C - Last Filed: 11/26/24 14:07> Additional Instructions: Return to the ER if you experience fever, abdominal pain with nausea and vomiting, you are unable to keep down liquids or solids, blood in the stool, pain or burning with urination, blood in the urine or any other symptoms that are concerning to you Small, frequent meals. [place] diet. Remain well hydrated. Ondansetron as needed for nausea Follow up with primary care doctor There is an indeterminate 2.3 cm left adrenal nodule. Recommend further evaluation with adrenal mass protocol CT or MRI on a nonemergent basis. Your PCP can help arrange this. If you do not have 1 the name of the doctors listed below. <Odette Rey PA-C - Last Filed: 11/26/24 14:07> Patient Language: [place]ian <Odette Rey PA-C - Last Filed: 11/26/24 14:07> Prescriptions: New ondansetron 4 mg tablet,disintegrating 4 mg PO Q8H PRN (Reason: nausea and vomiting) Qty: 10 0RF No Action ondansetron HCl [Zofran] 4 mg tablet 4 mg PO Q6H PRN (Reason: nausea and vomiting) Qty: 10 0RF ondansetron 4 mg tablet,disintegrating 4 mg PO Q8H PRN (Reason: nausea and vomiting) Qty: 15 0RF ondansetron 4 mg tablet,disintegrating 4 mg PO Q6H PRN (Reason: nausea and vomiting) Qty: 20 0RF <Odette Rey PA-C - Last Filed: 11/26/24 14:07> Follow-up/Referrals: Stuart Sadler MD [Physician] - UNKNOWN,DOCTOR [Primary Care Provider] - <Odette Rey PA-C - Last Filed: 11/26/24 14:07> Stand Alone Forms: Work/School Release IP <Odette Rey PA-C - Last Filed: 11/26/24 14:07> Time of Disposition: 04:54 <Odette Rey PA-C - Last Filed: 11/26/24 14:07> 04:54 <Jyotsna Arredondo MD - Last Filed: 11/25/24 09:32>
[2024-11-25 00:06] LABS: Alanine Aminotransferase 33 U/L (6-35); Albumin Level 4.9 g/dL (3.5-5.1); Alkaline Phosphatase 118 U/L (38-126); Anion Gap 16 mmol/L (4-12); Aspartate Amino Transferase 41 U/L (14-36); Bilirubin,Total 0.9 mg/dL (0.2-1.3); Blood Urea Nitrogen 7 mg/dL (7-17); Calcium 9.8 mg/dL (8.4-10.2); Carbon Dioxide 20 mmol/L (22-30); Chloride 95 mmol/L (98-107); Estimated CRCL calculation 83 ml/min; Estimated Glomerular Filt Rate > 60; Glucose 134 mg/dL (65-110); Lipase 52 U/L (23-300); Potassium 3.1 mmol/L (3.4-5.0); Sodium 131 mmol/L (137-145); Total Protein 9.1 g/dL (6.3-8.2)
[2024-11-25 00:07] LABS: Hematocrit 43.1 % (37.0-47.0); Hemoglobin 14.6 g/dL (12.0-15.0); Immature Granulocyte Percent A 0.8 % (0-0.5); Lymphocytes Absolute Auto 1.20 K/mm3 (0.9-3.2); Mean Corpuscular HGB Conc 33.9 g/dl (32-36); Mean Corpuscular Hemoglobin 28.6 pg (26-34); Mean Corpuscular Volume 84.3 fl (80-100); Nucleated Red Blood Cells Absolute Auto 0.000 K/mm3 (0.0-0.012); Nucleated Red Blood Cells Perc 0.0 % (0.0-0.2); Platelet Count Result 361 k/mm3 (150-375); Red Blood Count 5.11 M/mm3 (4.2-5.4); White Blood Count 20.3 K/mm3 (4.5-10.0)
[2024-11-25 00:14] LABS: Cannabinoid Screen Urine Positive (Negative)
[2024-11-25 00:23] LABS: Magnesium 1.7 mg/dL (1.6-2.3)
[2024-11-25 00:32] LABS: Creatine Kinase 238 U/L (30-135)
[2024-11-25] MEDS: SODIUM CHLORIDE 0.9% IV 1,000 ML 999 ML IV CONT (01:55)
[2024-11-25] MEDS: FAMOTIDINE 20 MG/2 ML VIAL IV PUSH (01:55)
[2024-11-25] MEDS: ONDANSETRON INJ 4 MG/2 ML VIAL IV PUSH (01:55)
[2024-11-25] MEDS: LORazepam INJ (*CRX) 2 MG/ML VIAL 1 MG IV PUSH (01:56)
[2024-11-25 02:33] VITALS: BP 145/94; PULSE 98; RESP 27; O2SAT 99
[2024-11-25] MEDS: POTASSIUM CHLORIDE 20 MEQ ER TABLET 40 MEQ PO (03:33)
[2024-11-25] MEDS: LACTATED RINGERS 1,000 ML 999 ML IV CONT (03:35)
[2024-11-25] MEDS: MAGNESIUM SULF 1 GM/D5W 100 ML 1 GM/100 ML BAG IVPB (03:35)
[2024-11-25 04:44] LABS: Anion Gap 10 mmol/L (4-12); Blood Urea Nitrogen 5 mg/dL (7-17); Calcium 9.4 mg/dL (8.4-10.2); Carbon Dioxide 23 mmol/L (22-30); Chloride 100 mmol/L (98-107); Estimated CRCL calculation 93 ml/min; Estimated Glomerular Filt Rate > 60; Glucose 133 mg/dL (65-110); Potassium 3.5 mmol/L (3.4-5.0); Sodium 133 mmol/L (137-145)
[2024-11-25] MEDS: ACETAMINOPHEN 500 MG TABLET 1000 MG PO (05:09)
[2024-11-25] MEDS: KETOROLAC 15 MG/ML VIAL (*BKC) IV PUSH (05:10)
[2024-11-25 05:11] VITALS: BP 161/91; PULSE 116; RESP 18; O2SAT 100
== END 2024-11-25 05:41 | disposition home or self-care (01) ==
PROVIDERS: Physician Assistant; Emergency Provider Student in an Organized Health Care Education/Training Program
DX: K52.9 Noninfective gastroenteritis and colitis, unspecified (principal); E86.0 Dehydration; E87.6 Hypokalemia; R51.9 Headache, unspecified; G47.9 Sleep disorder, unspecified; F17.210 Nicotine dependence, cigarettes, uncomplicated; Z87.440 Personal history of urinary (tract) infections; Z87.442 Personal history of urinary calculi; E27.9 Disorder of adrenal gland, unspecified
CPT/HCPCS: 36415; 74177; 80048; 80053; 80307; 81001; 81025; 82550; 83690; 83735; 85025; 96361; 96365; 96375; 99284; A9270; J1885; J2060; J2405; J3475; J7030; J7120; Q9967

== ENCOUNTER 2025-01-29 21:17 | Emergency (ER) | payer OTHER, SELFPAY ==
--- OUTSIDE RECORDS SUMMARY | 2024-12-05 10:00 | XMS_ITS ---
Author Organization [facility] Address [address] [place] [address] Care Team Providers Care Grill Attendant Name Role Phone Eliseo Graves Primary Care Provider Xander Sánchez [phone] REASON FOR VISIT Discharge from [facility] Social History Sex Assigned At : Social History Observation Description Sex Assigned At Female Encounters Encounter Location Date Provider Diagnosis [address] [place] [address] 12/05/2024 Xander Sánchez Plan Of Treatment No Information Progress Notes * Arlene SUAZOeDOB:[birth year] (44 yo F)Acc No.[id number]:12/05/2024 UNLOCKED PROGRESS NOTE Patient: Marco GAMBLElie Provider: Dany Sánchez :1980 A ge:44 Y S ex:Female Date:12/05/2024 Address:[address] [place], [place] [id number] Pcp:Eliseo Graves Subjective: * Chief Complaints: * 1 . [facility] * Medical History: Objective: * Vitals: Assessment: Plan: * Treatment: * * Electronic signature of Xander Sánchez MD, [id number] on 01/29/2025 at 09:19 PM CDT Sign off status: Pending * Provider: Dany Sánchez Date: 12/05/2024 Generated for Nereidai ng/Famollyg/eTransmitting on: 0 01/29/2025 09:19 PM CDT
--- OUTSIDE RECORDS SUMMARY | 2025-01-29 21:19 | XMS_ITS | Clinical Summary ---
Author Organization [facility] Address [address] [place] [address] Phone Care Team Providers Care Camp Guard Name Role Phone Selina Burrell APRN, NEUROPSYCHIATRIST Primary Care Provider + Maria Dolores Skelton MD Unavailable Rehana Moss APRN, NEUROPSYCHIATRIST Unavailable Allergies Active Allergy Reactions Criticality Noted [...] mg by mouth 2 times daily. Active carvedilol (COREG) 3.125 MG Tablet Take 1 Tablet by mouth 2 times daily. 180 Tablet 3 Active spironolactone (ALDACTONE) 25 MG Tablet Take [...] Encounters Date Type Department Care Team Description 12/06/2024 Telephone [facility] Cardiology [facility] [address] [place] [address] Rehana Moss APRN, CNP 10/31/2024 1:30 PM CDT [facility] [address] [place] [address] Rehana Moss APRN, CNP HFrEF (heart failure with reduced ejection fraction) [...] drink = 0.6 oz pur e alcohol) [facility] Utilities Answer Date Recorded In the past [...] any time in the past 12 [facility], were you homeless or living in a custodial (including now)? 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 Gender Identity Not on file Sexual [...] st Contact Info) Description 03/06/2025 3:00 PM STARTING SHEET TANK OPERATOR Office Visit [facility] - Cardiology - [place] [address] [place] [address] Rehana Moss, FARM OWNER OPERATOR, NEUROPSYCHIATRIST [address] [place] [address] Health Maintenance Due Date Last Done Comments Hepatitis C Virus (HCV) Screening 1979 Mammogram 1979 Hepatitis B Immunization (1 of 3 - 19+ 3-dose series) 11/23/1998 Pap Smear 11/23/2000 Human Papillomavirus (HPV) Immunization (1 - 3-dose SCDM series) 11/23/2006 Cervical Cancer Screening (CCS) 11/23/2009 HPV/Cotest 11/23/2009 Pneumococcal Immunization Combined (2 of 2 - PCV) 01/30/2015 01/30/2014 Discussion re Starting/Frequency of Mammograms 2019 Cologuard 11/23/2024 Colonoscopy 11/23/2024 Colorectal Cancer Screening 11/23/2024 Immunochemical Fecal Occult Blood 11/23/2024 Influenza Immunization (#1) 01/01/2025/05/2022, 03/05/2020, 03/06/2019, Additional history exists SARS-COV-2 Immunization ( season) 2025 05/24/2021, 04/22/2021 Respiratory Syncytial Virus (RSV) Immunization (Adult) (1 - 1-dose 75+ series) 11/23/2054 TdaP Immunization Completed 01/22/2014 Meningococcal Immunization (ACWY) Aged Out No longer eligible based on patient's age to complete this topic Rotavirus Immunization Aged Out No lo nger eligible based on patient's age to complete this topic Insurance MEDICARE C [employer] Advance Directives Documents on File Type Date Recorded Patient Insole And Outsole Splitter Expl anation [place] Surrogate Physician Appointment 05/26/2024 10:54 AM [facility], 05/26/2024 * Full Code (Latest Code Status on File) Date Activated Date Inactivated Comments 05/26/2024 4:58 AM CPR-Full Treat ment: FULL ARREST: Attempt Resuscitation/CPR wit intubation and mechanical ventilation. PRE-ARREST: Use entire range of life support measures to stabilize the patient. Care Teams Camp Guard Relationship Specialty Start Date End Date Selina Burrell APRN, NEUROPSYCHIATRIST [address] [place] [address] PCP - General Family Medicine 05/25/24 Maria Dolores Skelton MD [address] [address] Consulting Physician Cardiology 06/19/24 Rehana Moss APRN, NEUROPSYCHIATRIST [address] [place] [address] Nurse Practitioner Cardiology 11/01/24
--- OUTSIDE RECORDS SUMMARY | 2025-01-29 21:19 | XMS_ITS | Clinical Summary ---
Author Organization [facility] Address [address] [facility] [place] [address] Care Team Providers Care Nursing Director Name Role Phone Unavailable Primary Care Provider Unavailabl e Source Comments [facility],non-owned Affiliates and Associated Physician Practices is amultiple site organization consisting of ambulatory clinics and hospital sitesin [place], [place], [place] and [place]. This disclosure is being madepursuant to the Care Everywhere program and may not contain all information available regarding this patient. Last updated 18.[facility] Allergies Active Allergy Reactions Criticality Noted Date [...] from the original. 10/19/13: Pt will receive Aloha injections at Dr. Pappas's office. (Should start 10/30/13.) Elyse is the contact lens edge buffer @ Dr. Pappas office [phone] opt #5 Problem Noted Date Diagnosed Date [...] Overview (09/06/2013): At 28w in G3. 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 Gender Identity Not on file Sexual Orientation [...] Health Maintenance Due Date Last Done Comments COLOGUARD (AGES 45-75) - COL ON CA SCREENING 1979 COLON MONITORING 1979 COLONOSCOPY - COLON CA SCREENING 1979 CT COLONOGRAPHY - COLON CA SCREENING 1979 Colorectal Cancer Screening 1979 FIT - COLON CA SCREENING 1979 FLEX SIG - COLON CA SCREENING 1979 LIPID TESTING 1979 MAMMOGRAM 1979 MEDICARE AWV 12 MONTHS 1979 HIV SCREENING 11/23/1994 HEPATITIS C SCREENING 11/19/1997 HEPATITIS B VACCINE (1 of 3 - 19+ 3-dose series) 11/23/1998 HPV VACCINE (1 - 3-dose SCDM series) 11/23/2006 PNEUMOCOCCAL VACCINE (2 of 2 - PCV) 01/30/2015 01/30/2014 PAP with HPV 01/08/2022 01/08/2017 DTAP/TDAP/TD VACCINES (2 - T d or Tdap) 01/23/2024 01/22/2014 COVID-19 VACCINE (2023-2 5 season) 2025 INFLUENZA VACCINE (#1) 2025 01/22/2014 ZOSTER VACCINE (1 of 2) 11/23/2029 HIB [...] Diagnosis Comment 01/14/2017 6:10 PM CDT [facility] Comment: NEGATIVE FOR INTRAEPITHELIAL LESION AND MALIGNANCY. CELLULAR CHANGES ASSOCIATED WITH INFLAMMATION ARE PRESENT. Specimen Adequacy Comment 017 6:10 PM CDT [facility] Comment: Satisfactory for evaluation. Endocervical and/or squamous metaplastic cells (endocervical component) are present. Performed by Comment 01/14/2017 6:10 PM CDT [facility] Comment:Lilly Ponce Nursing Scheduler (ASCP) Comment . 01/14/2017 6:10 PM CDT [facility] Note Comment 01/14/2017 6:10 PM CDT [facility] Comment: The Pap smear is a screening test designed to aid in the detection of premalignant and malignant conditions of the uterine cervix. It is not a diagnostic procedure and should not be used as the sole means of detecting cervical cancer. Both false-positive and false-negative reports do occur. Human papillomavirus High Risk Negative Negative 01/14/2017 6:10 PM CDT [facility] Comment: This high-risk HPV test detects thirteen high-risk types (16/18/31/33/35/39/45/51/52/56/58/59/68) without differentiation. Pathology/Cytolo gy MICROSCOPIC CYTOLOGIC EXAMINATION OF SMEAR OF SPECIMEN FROM FEMALE GENITAL TRACT PREPARED USING PAPANICOLAOU TECHNIQUE / Unknown Collection / Unknown 01/08/2017 3:53 PM CDT 01/08/2017 3:56 PM CDT [facility] - 01/14/2017 6:10 PM CDT Performed at: 01 - [address] [id number] Handmade Tile Artist: Marjorie Scott MD, Phone: [phone] Performed at: 02 - [address] [id number] Handmade Tile Artist: Marjorie Scott MD, Phone: [phone] Specimen Comment: Source.............Cervix Specimen Comment: LMP / Prev Treat...SZX=[id number];None Specimen Comment: No. of containers..01 ThinPrep Vial Mulugeta Kaba MD LAB - PATHOLOGY/CYTOLOGY ORD ERABLES Final Result [facility]) [address] [place] [address] from Last 3 Months or Most Recently Relevant to Health Maintenance Insurance MEDICAID - [place] MEDICARE MEDICARE MEDICAID - [facility] Advance Directives * Full Code (Latest Code Status on File) Date Activated Date Inactivated Comments 01/27/2014 4:34 PM 01/30/2014 8:10 PM * Full Code Date Activated Date Inactivated Comments 10/13/2013 3:55 PM 10/14/2013 2:49 PM * Full Code Date Activated Date Inactivated Comments 10/12/2013 9:17 PM 10/13/2013 3:55 PM
--- OUTSIDE RECORDS SUMMARY | 2025-01-29 21:19 | XMS_ITS | Patient Health Record ---
Author Organization [facility] Address [address] [facility] [address] [place] [address] Care Team Providers Care Sheet Metal Shop Supervisor Name Role Phone Luis Boland Primary Care Provider Unavail able Allergies Allergen (clinical drug ingredient) Drug/Non Drug Allergy documented on EMR Reaction Allergy Type Onset Date Status Penicillin Unknown Drug Allergy Active Reason For Referral No Information Medications Medication SIG (Take, Route, Frequency, Duration) Notes Start Date End Date Status [place] 5/325 1 Tablet oral every 6 hrs; Duration: 05 days 05/11/2016 Active busPIRone HCl Active QUEtiapine Fumarate 100mg 1xday Active Sertraline HCl 100mg 2xday Act bello Venlafaxine HCl Acti ve hydrOXYzine HCl 50mg 3xday Act bello Social History Tobacco Use: Social History Observation Description Date Details (start date - stop date) Current Smoker NA - NA Social History Drugs/Alcohol: Social Info Question Answer Notes Caffeine Intake: 3-4 cups per day Coffee, Sod a Tobacco Use: Social Info Question Answer Notes Tobacco Use/Smoking Are you a current smoker How often do you smoke cigarettes? every day How many cigarettes a day do you smoke? 11-20 How soon after you wake up do you smoke your first cigarette? 6-30 minutes Are you interested in quitting? Not ready to quit Additional Findings: Tobacco User Modera te cigarette smoker (10-19 cigs/day) Plan Of Treatment No Information Insurance Providers Payer Name Payer Address Payer Phone Subscriber Number Group Number Insured Name Patient Relationship to Insured Coverage Start Date Coverage End Date [facility] [address] [place] [address] [id number] Marah Suazo Self - patient is the insured 6
--- OUTSIDE RECORDS SUMMARY | 2025-01-29 21:19 | XMS_ITS | Clinical Summary ---
Author Organization [facility] Address [address] [place] [address] Care Team Providers Care Electric Organ Checker Name Role Phone Unavailable Primary Care Provider [...] 30 to 64) Every 3 Years 1979 Colorectal Cancer Screening Colonoscopy (10 Years) 1979 Annual Physical 11/23/1982 Hepatitis C 11/23/1997 [...] - PCV) 01/30/2015 01/30/2014 Mammogram Screening 2019 DTaP, Tdap and Td Vaccines ( 2 - Td or Tdap) 01/23/2024 01/22/2014 PHQ-2 (Physician Goltry) 05/03/2024 COVID-19 Vaccine (1 - 2023-2 5 season) 2025 Meningococcal B Vaccine Aged Out No l onger eligible based on patient's age to complete this topic Meningococcal Vaccine Aged Out No carlos enrique jacob eligible based on patient's age to complete this topic RSV Immunizations Under 20 Months Aged Out No longer eligible based on patient's age to complete this topic Insurance MEDICAID MEDICARE AETNA
--- OUTSIDE RECORDS SUMMARY | 2025-01-29 21:19 | XMS_ITS | Patient Health Record ---
Author Organization [facility] Address [address] [place] [address] Care Team Providers Care Master Sheet Clerk Name Role Phone Graves, Eliseo Primary Care Provider [phone] Habib, Arif Unavailable [phone] Allergies Allergen (clinical drug ingredient) Drug/Non Drug [...] W/U Status Risk Notes Problem Tobacco user (145285432) Nicotine dependence, unspecified, uncomplicated (F17.200) Active confirmed Problem Generalized anxiety disorder (83284162) Generalized anxiety disorder (F41.1) Active confirmed Problem Depression (591262538) Depression (F32.9) 0 Active confirmed Problem Anxiety (87143294) Anxiety (F41.9) Active confirmed Problem Bipolar 1 disorder (424284686) Bipolar 1 disorder (F31.9) 0 Active confirmed Problem Panic disorder (040414291) Panic disorder (F41.0) Active confirmed Problem Manic bipolar I disorder (91338656) Manic bipolar I disorder (F31.10) 0 Active confirmed Problem Tobacco use (436527154) Tobacco use disorder (F17.200) Active confirmed Vital Signs Height 64 in 11/14/2024 Weight 160 lbs 11/14/2024 BMI 27.46 kg/m2 11/14/2024 Encounters Encounter Location Date Provider Diagnosis [address] [place] [address] 04/11/2024 Arif Habib Nicotine dependence, unspecified, uncomplicated F17.200 ; Bipolar 1 disorder F31.9 ; Panic disorder F41.0 and Generalized anxiety disorder F41.[address] [place] [address] 08/29/2024 Arif Habib Nicotine dependence, unspecified, uncomplicated F17.200 ; Bipolar 1 disorder F31.9 ; Panic disorder F41.0 and Generalized anxiety disorder F41.[address] [place] [address] 11/14/2024 Arif Habib Nicotine dependence, unspecified, uncomplicated F17.200 ; Bipolar 1 disorder F31.9 ; Panic disorder F41.0 and Generalized anxiety disorder F41.[address] [place] [address] 04/11/2024 Xander Sánchez [address] [place] [address] 11/13/2024 Xander Sánchez [address] [address] 12/05/2024 Xander Sánchez Assessments Encounter Date Diagnosis (ICD [...] Date Coverage End Date A[employer] Better [employer] Medicare-[facility] [address] [address] [place] [address] [id number] Marah Suazo Self - patient is the insured MEDICAID [address] [place] [id number] Marah Suazo Self - patient is the insured 0 [address] [facility] [address] [place] [address] [id number] Marah Suazo Self - patient is the insured 1 Medical (General) History Medical History History ICD Code Anxiety Panic disorder Manic bipolar I disorder Depression Surgical History Surgery Date(Month/Year) biopsy cervix 2003 gallbladder 2014 Hospitalization History Reason Date(Month/Year) [facility] 10/2019 [facility] 06/2023 [facility] [place] May 2022
[2025-01-29 21:21] VITALS: BP 134/67; PULSE 80; RESP 20; TEMP 36.9; O2SAT 100
[2025-01-29 21:37] VITALS: BP 148/94; PULSE 75; RESP 20; O2SAT 98
[2025-01-29] MEDS: ACETAMINOPHEN 500 MG TABLET 1000 MG PO (22:09)
[2025-01-29 22:11] LABS: BEDSIDEPREGUCG Negative (Negative)
[2025-01-29] MEDS: METOCLOPRAMIDE HCL INJ 10 MG/2 ML VIAL IV PUSH (22:11)
[2025-01-29] MEDS: SODIUM CHLORIDE 0.9% IV 1,000 ML 999 ML IV CONT (22:11)
[2025-01-29] MEDS: KETOROLAC 30 MG/ML VIAL (*BKC) IV PUSH (22:11)
[2025-01-29] MEDS: dexAMETHasone SOD PHOS INJ 10 MG/ML 1 ML VIAL IV PUSH (22:16)
--- NOTE | 2025-01-29 22:56 | ED_ITS ---
HPI - Headache General Chief Complaint: Headache Stated Complaint: headache Time Seen by Provider: 01/29/25 21:24 Source: patient and old records reviewed Mode of arrival: ambulatory Limitations: no limitations History of Present Illness HPI Narrative: Patient is a 44-year-old female who presents the ED with report of a headache. Patient reports she has had a persistent headache since yesterday afternoon. Present throughout her frontal region. Has history of previous migraines. Has been seen in the ED several times for similar symptoms. States this feels consistent with her migraine history. She took Tylenol and ibuprofen yesterday without improvement. Has not taken anything for pain today. Reports nausea, vomiting, photophobia, phonophobia. Denies dizziness, significant vision changes, fevers, neck pain. Related Data Allergies Allergy/AdvReac Type Severity Reaction Status Date / Time Penicillins Allergy Mild Unknown Verified 11/24/24 18:34 Review of Systems Review of Systems: All systems reviewed & are unremarkable except as noted in HPI. All systems reviewed & are unremarkable except as noted in HPI and below PMFSH Past Medical History Medical History Bipolar disorder Sleep disorder Anxiety Manic depressive disorder UTI (urinary tract infection) Kidney stone Surgical History Surgical History History of cervical biopsy Social History Social History Additional smoking assessment comments: 1/2 PPD Exam Narrative: GENERAL: Well appearing, well-nourished, non-toxic, in no acute distress. HEAD: Normocephalic, atraumatic. EYES: PERRL/EOMI, conjunctiva clear NECK: No meningeal signs RESPIRATORY: Airway patent, respirations nonlabored. Clear to auscultation bilaterally, no rales, rhonchi, wheezing. CARDIOVASCULAR: Regular rate and rhythm without murmurs, rubs, or gallops. MUSCULOSKELETAL: Moves all extremities. No gross deformities. SKIN: Warm, dry, normal color. NEURO: A&O X3. Speech clear. Cranial nerves II-XII grossly intact. Steady gait. No ataxic movements. No focal deficits. PSYCHIATRIC: Appropriate mood and affect. Normal interaction. Course Vital Signs Vital signs: Vital Signs Temperature 98.4 F 01/29/25 21:21 Pulse Rate 80 01/29/25 21:21 Respiratory Rate 20 01/29/25 21:21 Blood Pressure 134/67 01/29/25 21:21 Pulse Oximetry 100 01/29/25 21:21 Temperature 98.4 F 01/29/25 21:21 Pulse Rate 78 01/29/25 23:47 Respiratory Rate 14 01/29/25 23:47 Blood Pressure 137/91 H 01/29/25 23:47 Pulse Oximetry 98 01/29/25 23:47 MDM - Headache MDM Narrative Medical decision making narrative: Patient's headache was not sudden in onset or maximal in severity. There are no focal neurological deficits on exam. Subarachnoid hemorrhage is felt to be unlikely at this time. There is no history of fever and neck is supple on evaluation without meningeal signs. Meningitis is felt to be unlikely. No traumatic history or signs of trauma on evaluation. No vision changes or ocular signs of acute glaucoma. Reports history of frequent migraines and states current migraine feel similar to previous. Patient feeling much better after migraine cocktail. Sleeping on reeval. Patient's headache is felt to be benign cephalgia and reasonable for further outpatient management. Advised patient to follow with PCP for further evaluation. Given reasons to return. She agrees w/ plan. D/C in stable condition. Medical Records Attestation: I reviewed the patient's medical records. Lab Data Attestation: I reviewed the patient's lab results. Labs: Lab Results 01/29/25 Range/Units 22:08 POC Urine HCG, Qual Negative (Negative) Discharge Plan Discharge Clinical Impression: Migraine Qualifiers: Migraine type: unspecified Status migrainosus presence: without status mi grainosus Intractability: not intractable Qualified Code(s): G43.909 - Migraine, unspecified, not intractable, without status migrainosus Patient Disposition: Home Condition: Stable Instructions: Antibiotic Form, Migraine Headache (ED), Acute Headache (ED) Additional Instructions: Continue Tylenol and ibuprofen as needed for pain. You can take 600 mg of ibuprofen 1000 mg of Tylenol every 6 hours. Utilize Zofran as needed for further nausea. Get plenty of rest. Stay well hydrated. Recommend low light/ low stimulus environment, limiting screen time. Follow-up with your primary care doctor for further evaluation if needed. Return to the ED if you experience worsening or severe pain, severe dizziness, vision changes, unable to keep down food or drink, or any other symptoms of concern. Patient Language: Norwegian Prescriptions: No Action ondansetron HCl [Zofran] 4 mg tablet 4 mg PO Q6H PRN (Reason: nausea and vomiting) Qty: 10 0RF ondansetron 4 mg tablet,disintegrating 4 mg PO Q8H PRN (Reason: nausea and vomiting) Qty: 15 0RF ondansetron 4 mg tablet,disintegrating 4 mg PO Q8H PRN (Reason: nausea and vomiting) Qty: 10 0RF ondansetron 4 mg tablet,disintegrating 4 mg PO Q6H PRN (Reason: nausea and vomiting) Qty: 20 0RF Follow-up/Referrals: UNKNOWN,DOCTOR [Primary Care Provider] Time of Disposition: 00:12
[2025-01-29 23:47] VITALS: BP 137/91; PULSE 78; RESP 14; O2SAT 98
[2025-01-30 00:57] VITALS: BP 157/98; PULSE 73; RESP 12; O2SAT 98
== END 2025-01-30 00:55 | disposition home or self-care (01) ==
PROVIDERS: Emergency Provider Physician Assistant
DX: G43.909 Migraine, unspecified, not intractable, without status migrainosus (principal); F17.210 Nicotine dependence, cigarettes, uncomplicated; Z87.440 Personal history of urinary (tract) infections; Z87.442 Personal history of urinary calculi
CPT/HCPCS: 81025; 96361; 96374; 96375; 99284; A9270; J1100; J1200; J1885; J2765; J7030

== ENCOUNTER 2025-03-11 16:54 | Emergency (ER) | payer OTHER, SELFPAY ==
--- OUTSIDE RECORDS SUMMARY | 2024-12-05 09:00 | XMS_ITS ---
Author Organization [facility] Address [address] [place] [address] Care Team Providers Care Terminal Operations Supervisor Name Role Phone Eliseo Graves Primary Care Provider [phone] Xander Sánchez [phone] REASON FOR VISIT Discharge from [facility] Social History Sex Assigned At : Social History Observation Description Sex Assigned At Female Encounters Encounter Location Date Provider Diagnosis [address] [place] [address] 12/05/2024 Xander Sánchez Plan Of Treatment No Information Progress Notes * Jonathon SUAZOOB:[birth year] (44 yo F)Acc No.[id number]:12/05/2024 UNLOCKED PROGRESS NOTE Patient: Marah GAMBLE Provider: Dany Sánchez :1980 A ge:44 Y S ex:Female Date:12/05/2024 Address:[address] [place], [place] [id number] Pcp:Eliseo Graves Subjective: * Chief Complaints: * 1 . [facility]charge [facility]. * Medical History: Objective: * Vitals: Assessment: Plan: * Treatment: * * Electronic signature of Xander Sánchez MD, [id number] on 03/11/2025 at 04:56 PM ONLINE MERCHANDISING SPECIALIST Sign off status: Pending * Provider: Dany Sánchez Date: 0 12/05/2024 Generated for Fabian velarde/Neetu/eTransmitting on: 1 05/11/2024 04:56 PM ONLINE MERCHANDISING SPECIALIST
--- NOTE | ~2025-03-11 | CT_ITS ---
EXAMINATION: CT brain wo con COMPARISON: None HISTORY: head injury TECHNIQUE: Axial images were obtained through the brain without IV contrast. CT scan performed using dose optimization techniques including the following automated exposure control; adjustment of mA and/or kV; use of iterative reconstruction technique. Automatic exposure control was used to reduce radiation dose. Permanent radiation dose record is archived to PACS. FINDINGS: No acute infarct or parenchymal hemorrhage. No abnormal mass or mass effect. No midline shift. No extra-axial fluid collections. No hydrocephalus. . Mastoid air cells unremarkable. Sinuses and orbits unremarkable. No acute fracture. No significant facial or scalp soft tissue swelling evident. No radiopaque foreign body is seen. Impression: 1.No acute intracranial abnormality. Reviewed, dictated and finalized at location [address] RO[address] TRACK MECHANIC Impression: 1.No acute intracranial abnormality.
--- OUTSIDE RECORDS SUMMARY | 2025-03-11 16:56 | XMS_ITS | Patient Health Record ---
[facility] Organization [facility] Address [address] [place] [address] Care Team Providers Care Cut Roll Machine Offbearer Name Role Phone Eliseo Graves Primary Care Provider [phone] Habib, Arif Unavailable [phone] Allergies Allergen (clinical drug ingredient) Drug/Non Drug Allergy documented on EMR Reaction Allergy Type Onset Date Status Penicillin G Benzathine hives Drug Allergy Active Reason For Referral No Information Medications Medication SIG (Take, Route, Frequency, Duration) Notes Start Date End Date Status hydrOXYzine HCl 50 MG 1 tablet as needed for anxiety Orally every 6 hrs; Duration: 30 days Active busPIRone HCl 30 MG 1 tablet Orally Twic e a day; Duration: 30 days Active Venlafaxine HCl 75 MG 1 tablet with food Orally twice a day; Duration: 30 days Active QUEtiapine Fumarate 100 MG 1 tablet Oral ly twice daily; Duration: 30 days Active Sertraline HCl 100 MG 1 tablet Orally tw ice a day; Duration: 30 days Active traZODone HCl 150 MG 1 tablet at bedtime Orally at night; Duration: 30 days Active Influenza Vac Split Quad 0.5 ML as directed Intramuscular 03/05/2020 Un known Spironolactone 25 MG 1 tablet Orally Onc e a day Active Jardiance 10 MG 1 tablet Orally Once a day Active Losartan Potassium 50 MG 1 tablet Orally Once a day Active Carvedilol 3.125 MG 1 tablet with food O rally Twice a day Active Immunizations Vaccine Route Administration Date Status [...] W/U Status Risk Notes Problem Tobacco user (655871495) Nicotine dependence, unspecified, uncomplicated (F17.200) Active confirmed Problem Generalized anxiety disorder (20604965) Generalized anxiety disorder (F41.1) Active confirmed Problem Depression (066127406) Depression (F32.9) 0 Active confirmed Problem Anxiety (79897776) Anxiety (F41.9) Active confirmed Problem Bipolar 1 disorder (776208583) Bipolar 1 disorder (F31.9) 0 Active confirmed Problem Panic disorder (860341371) Panic disorder (F41.0) Active confirmed Problem Manic bipolar I disorder (53286769) Manic bipolar I disorder (F31.10) 0 Active confirmed Problem Tobacco use (575235440) Tobacco use disorder (F17.200) Active confirmed Vital Signs Heart Rate 96 /min 02/06/2025 Respiratory Rate 16 /min 02/06/2025 Blood pressure diastolic 84 mm Hg 02/06/2025 Oximetry 98 % 02/06/2025 Height 64in in 02/06/2025 Blood pressure systolic 126 mm Hg 02/06/2025 Weight 168lbs lbs 02/06/2025 BMI 28.83 kg/m2 02/06/2025 Encounters Encounter Location Date Provider Diagnosis [address] [place] [address] 04/11/2024 Arif Habib Nicotine dependence, unspecified, uncomplicated F17.200 ; Bipolar 1 disorder F31.9 ; Panic disorder F41.0 and Generalized anxiety disorder F41.[address] [place] [address] 08/29/2024 Arif Habib Nicotine dependence, unspecified, uncomplicated F17.200 ; Bipolar 1 disorder F31.9 ; Panic disorder F41.0 and Generalized anxiety disorder F41.[address] [address] 11/14/2024 Arif Habib Nicotine dependence, unspecified, uncomplicated F17.200 ; Bipolar 1 disorder F31.9 ; Panic disorder F41.0 and Generalized anxiety disorder F41.[address] [address] 02/06/2025 Arif Habib Nicotine dependence, unspecified, uncomplicated F17.200 ; Bipolar 1 disorder F31.9 ; Panic disorder F41.0 and Generalized anxiety disorder F41.[address] [address] 04/11/2024 Arif Habib [address] [address] 11/13/2024 Arif Habib [address] [address] 12/05/2024 Arif Habib [address] [address] 01/30/2025 Arif Habib Assessments Encounter Date Diagnosis (ICD Code) Assessment Notes Treatment Notes Treatment Clinical Notes Section Notes 04/11/2024 Nicotine dependence, unspecified, uncomplicated (ICD-10 - F17.200) 08/29/2024 Nicotine dependence, unspecified, uncomplicated (ICD-10 - F17.200) 11/14/2024 Nicotine dependence, unspecified, uncomplicated (ICD-10 - F17.200) 02/06/2025 Nicotine dependence, unspecified, uncomplicated (ICD-10 - F17.200) 02/06/2025 Bipolar 1 disorder (ICD-10 - F31.9) Risk [...] F41.0) 11/14/2024 Panic disorder (ICD-10 - F41.0) 02/06/2025 Panic disorder (ICD-10 - F41.0) 02/06/2025 Generalized anxiety disorder (ICD-10 - F41.1) 11/14/2024 Generalized anxiety disorder (ICD-10 - F41.1) 08/29/2024 Generalized anxiety disorder (ICD-10 - F41.1) 04/11/2024 Generalized anxiety disorder (ICD-10 - F41.1) Plan Of Treatment No Information Insurance Providers Payer Name Payer Address Payer Phone Subscriber Number Group Number Insured Name Patient Relationship to Insured Coverage Start Date Coverage End Date [employer] Medicare-M SARAY [address] [address] [place] [address] [id number] Marah Suazo Self - patient is the insured 1 MEDICAID [address] [place] [address] [id number] Marha Suazo Self - patient is the insured 0 1 [facility] [address] [place] [address] [id number] Marah Suazo Self - patient is the insured 1 Medical (General) History Medical History History ICD Code Anxiety Panic disorder Manic bipolar I disorder Depression Surgical History Surgery Date(Month/Year) biopsy cervix 2003 gallbladder 2014 Hospitalization History Reason Date(Month/Year) [facility] 06/2023 [facility] [place] May 2022 [facility] 10/2019
--- OUTSIDE RECORDS SUMMARY | 2025-03-11 16:56 | XMS_ITS | Clinical Summary ---
Author Organization [facility] Address [address] [place] [address] Care Team Providers Care Performance Tester Name Role Phone Unavailable Primary Care Provider [...] Td or Tdap) 01/23/2024 01/22/2014 PHQ-2 (Physician [place]) 05/03/2024 COVID-19 Vaccine (1 - 2024-2 6 season) 2025 Influenza Adult (#1) 2025 01/22/2014 Hepatitis A Vaccines Aged Out No long er eligible based on patient's age to complete this topic Meningococcal B Vaccine Aged Out No l onger eligible based on patient's age to complete this topic Meningococcal Vaccine Aged Out No carlos enrique jacob eligible based on patient's age to complete this topic RSV Immunizations Under 20 Months Aged Out No longer eligible based on patient's age to complete this topic Insurance MEDICAID MEDICARE AETNA MEDICARE
--- OUTSIDE RECORDS SUMMARY | 2025-03-11 16:56 | XMS_ITS | Clinical Summary ---
Author Organization [facility] Address [address] [place] [address] Care Team Providers Care Salesperson Trailers [employer] Name Role Phone Unavailable Primary Care Provider Unavailabl e Source Comments [facility],non-owned Affiliates and Associated Physician Practices is amultiple site organization consisting of ambulatory clinics and hospital sitesin [place], [place], [place]. This disclosure is being madepursuant to the Care Everywhere program and may not contain all information available regarding this patient. Last updated 18.[facility] Allergies Active Allergy Reactions Criticality Noted Date [...] office. (Should start 10/30/13.) Elyse is the personal injury paralegal @ Dr. 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 CELLULAR CHANGES ASSOCIATED WITH INFLAMMATION ARE PRESENT. Specimen Adequacy Comment 017 6:10 PM CDT [facility] ([facility]) Comment: Satisfactory for evaluation. Endocervical and/or squamous metaplastic cells (endocervical component) are present. Performed by Comment 01/14/2017 6:10 PM CDT [facility] ([facility]) Comment:Lilly Ponce Dosimetrist (ASCP) Comment . 01/14/2017 6:10 PM CDT [facility] ([facility]) Note Comment 01/14/2017 6:10 PM CDT [facility] ([facility]) Comment: The Pap smear is a screening test designed to aid in the detection of premalignant and malignant conditions of the uterine cervix. It is not a diagnostic procedure and should not be used as the sole means of detecting cervical cancer. Both false-positive and false-negative reports do occur. Human papillomavirus High Risk Negative Negative 01/14/2017 6:10 PM CDT [facility] ([facility]) Comment: This high-risk HPV test detects thirteen high-risk types (16/18/31/33/35/39/45/51/52/56/58/59/68) without differentiation. Pathology/Cytolo gy MICROSCOPIC CYTOLOGIC EXAMINATION OF SMEAR OF SPECIMEN FROM FEMALE GENITAL TRACT PREPARED USING PAPANICOLAOU TECHNIQUE / Unknown Collection / Unknown 01/08/2017 3:53 PM CDT 01/08/2017 3:56 PM CDT [facility] ([facility]) - 01/14/2017 6:10 PM CDT Performed at: 01 - [address] [id number] Die Maker Trim: Marjorie Scott MD, Phone: [phone] Performed at: 02 - [address] [id number] Die Maker Trim: Marjorie Scott MD, Phone: [phone] Specimen Comment: Source.............Cervix Specimen Comment: LMP / Prev Treat...[id number];None Specimen Comment: No. of containers..01 ThinPrep Vial Mulugeta Kaba MD LAB - PATHOLOGY/CYTOLOGY ORD ERABLES Final Result [facility]) [address] [place] [address] from Last 3 Months or Most Recently Relevant to Health Maintenance Insurance MEDICAID - [place] MEDICARE MEDICARE MEDICAID - [facility] Advance Directives * Full Code (Latest Code Status on File) Date Activated Date Inactivated Comments 01/27/2014 4:34 PM 01/30/2014 8:10 PM * Full Code Date Activated Date Inactivated Comments 10/13/2013 3:55 PM 10/14/2013 2:49 PM * Full Code Date Activated Date Inactivated Comments 10/12/2013 9:17 PM 10/13/2013 3:55 PM
--- OUTSIDE RECORDS SUMMARY | 2025-03-11 16:56 | XMS_ITS | Patient Health Record ---
Author Organization [facility] Address [address] [place] [address] Care Team Providers Care Front Services Agent Name Role Phone Luis Boland Primary Care Provider Unavail able Allergies Allergen (clinical drug ingredient) Drug/Non Drug Allergy documented on EMR Reaction Allergy Type Onset Date Status Penicillin Unknown Drug Allergy Active Reason For Referral No Information Medications Medication SIG (Take, Route, Frequency, Duration) Notes Start Date End Date Status Kennedy 5/325 1 Tablet oral every 6 hrs; [...] Start Date Coverage End Date [facility] [address] [place] [address] [id number] Marah Suazo Self - patient is the insured 6
--- NOTE | 2025-03-11 17:07 | ED.GENADULT ---
HPI - General Adult General Chief complaint: Head Injury Stated complaint: head injury Time Seen by Provider: 03/11/25 16:59 History of Present Illness HPI narrative: 44-year-old female presenting to the emergency department for evaluation after having a head injury. Patient states she did strike her head on the refrigerator door and did become dazed. Patient denies any loss of consciousness. Patient states since then she has had worsening headache. Patient is also complaining of an anxiety attack. Patient does have a history of migraines and states she now has a migraine. Patient is requesting a migraine cocktail in addition to medication for her panic attack. Related Data Allergies Allergy/AdvReac Type Severity Reaction Status Date / Time Penicillins Allergy Mild Unknown Verified 11/24/24 18:34 Review of Systems Review of Systems: All systems reviewed & are unremarkable except as noted in HPI and below PMFSH Past Medical History Medical History Bipolar disorder Sleep disorder Anxiety Manic depressive disorder UTI (urinary tract infection) Kidney stone Surgical History Surgical History History of cervical biopsy Social History Social History Additional smoking assessment comments: 1/2 PPD Exam Narrative: APPEARANCE: Well appearing, no pain, no distress, well-nourished. HEAD: normocephalic, atraumatic. EYES: PERRLA/EOMI, conjunctivae clear. NOSE: Normal no drainage EARS:TMS clear with good light reflex. THROAT: Pharynx clear, no exudate. NECK: Supple. No adenopathy, no masses. RESPIRATORY: Airway patent, respirations nonlabored. Clear to auscultation bilaterally, no rales, rhonchi, wheezing. CARDIOVASCULAR: Regular rate and rhythm without murmurs rubs or gallops. ABDOMINAL: Soft, nontender, nondistended, normal bowel sounds MUSCULOSKELETAL: Moves all extremities. Strength/ROM intact, No edema, No calf tenderness. NEURO: Alert. Cranial nerves II through XII intact. Good gait. Good coordination SKIN: Warm, dry. Normal Color Course Vital Signs Vital signs: Vital Signs Pulse Rate 98 03/11/25 19:10 Respiratory Rate 16 11/09/25 19:10 Blood Pressure 150/90 H 03/11/25 19:10 Pulse Oximetry 99 03/11/25 19:10 Pulse Rate 98 03/11/25 19:10 Respiratory Rate 16 03/11/25 19:10 Blood Pressure 150/90 H 03/11/25 19:10 Pulse Oximetry 99 03/11/25 19:10 Medical Decision Making MDM Narrative Medical decision making narrative: 44-year-old female presenting to the emergency department for evaluation for head injury. Patient was treated with a migraine cocktail. Re-evaluation patient states she does feel improved. Headache is not resolved. Patient is resting comfortably. Head CT was negative for acute intracranial abnormality. Patient and family are updated on results of the workup. All questions concerns were addressed patient was well-appearing at time of discharge. Differential Diagnosis Differential Diagnosis: Anxiety, panic attack, head contusion, migraine, subdural hematoma, subarachnoid hemorrhage Vital Signs Vital Signs: Vital Signs Pulse Rate 98 03/11/25 19:10 Respiratory Rate 16 03/11/25 19:10 Blood Pressure 150/90 H 03/11/25 19:10 Pulse Oximetry 99 03/11/25 19:10 Pulse Rate 98 03/11/25 19:10 Respiratory Rate 16 03/11/25 19:10 Blood Pressure 150/90 H 03/11/25 19:10 Pulse Oximetry 99 03/11/25 19:10 Imaging Data Radiologist's impression: Impressions Head CT 03/11/25 18:53 Impression: 1.No acute intracranial abnormality. Discharge Plan Discharge Clinical Impression: Closed head injury, Headache, migraine Patient Disposition: Home Condition: Stable Instructions: Antibiotic Form, Head Injury (ED) Additional Instructions: Home medications as directed for pain control. Have close follow-up with your primary care physician. If you have any worsening symptoms then please call or return to the emergency department. Patient Language: Azerbaijani Prescriptions: No Action ondansetron HCl [Zofran] 4 mg tablet 4 mg PO Q6H PRN (Reason: nausea and vomiting) Qty: 10 0RF ondansetron 4 mg tablet,disintegrating 4 mg PO Q8H PRN (Reason: nausea and vomiting) Qty: 15 0RF ondansetron 4 mg tablet,disintegrating 4 mg PO Q8H PRN (Reason: nausea and vomiting) Qty: 10 0RF ondansetron 4 mg tablet,disintegrating 4 mg PO Q6H PRN (Reason: nausea and vomiting) Qty: 20 0RF Follow-up/Referrals: UNKNOWN,DOCTOR [Non-Staff]
[2025-03-11] MEDS: MIDAZOLAM HCL (*CRX) 2 MG/2 ML VIAL IV PUSH (17:48)
[2025-03-11] MEDS: ACETAMINOPHEN 500 MG TABLET 1000 MG PO (17:48)
[2025-03-11] MEDS: dexAMETHasone SOD PHOS INJ 10 MG/ML 1 ML VIAL IV PUSH (17:48)
[2025-03-11] MEDS: LACTATED RINGERS 1,000 ML 999 ML IV CONT (17:48)
--- OUTSIDE RECORDS SUMMARY | 2025-03-11 18:06 | XMS_ITS | Clinical Summary ---
Author Organization [facility] Address [address] [place] [address] Phone Care Team Providers Care Grocery Shopper Name Role Phone Selina Burrell REGISTERED PHARMACY TECHNICIAN, ACCOUNTS RECEIVABLE COORDINATOR Primary Care Provider + Maria Dolores Skelton MD Unavailable Rehana Moss APRN, ACCOUNTS RECEIVABLE COORDINATOR Unavailable Allergies Active Allergy Reactions Criticality Noted [...] Tablet by mouth daily. 90 Tablet 3 Active Active Problems Problem Noted Date Diagnosed Date Cardiomyopathy 06/18/2024 HFrEF (heart failure with reduced ejection fract ion) 06/18/2024 Primary hypertension 06/18/2024 Nonrheumatic mitral valve regurgitation 06/18/19 Generalized anxiety disorder 05/26/2024 Tobacco user 05/26/2024 Anxiety 09/04/2013 Schizophrenia 09/04/2013 Bipolar 1 disorder Resolved Problems Problem Noted Date Diagnosed Date Resolved Date Acute hypoxic respiratory failure 05/26/2024 06/04/2024 Acute metabolic acidosis 05/26/202406/2024 Severe sepsis with septic shock (CODE) 05/26/2024 06/04/2024 Required emergent intubation 05/26/2024 06/04/2024 Community acquired pneumonia 05/25/2024 06/04/2024 Depression 05/26/2024 Family History Medical History Relation Name Comments [...] 0.6 oz pur e alcohol) [facility] Utilities Answer Date Recorded In the past 12 months has [employer], gas, oil, or water [employer] threatened to shut off services in your [...] any time in the past 12 m [facility], were you homeless or living in a snf (including now)? No 05/26/2024 Sexually Active Control Partners Comments Not Currently Implant esure Comments No Sex and Gender Information Value Date Recorded Sex Assigned at Not on file Legal Sex Female 5:10 PM PRICER Gender Identity Not on file Sexual Orientation [...] Care Team (Late st Contact Info) Description 03/13/2025 10:00 AM PRICER Appointment [facility] Cardiology Services [address] [place] [address] Rehana Moss, REGISTERED PHARMACY TECHNICIAN, ACCOUNTS RECEIVABLE COORDINATOR [address] [place] [address] Discharge Disposition: Discharged to home or Selfcare 03/15/2025 3:30 PM PRICER Office Visit [facility] - Cardiology - [address] [place] [address] Rehana Moss, REGISTERED PHARMACY TECHNICIAN, ACCOUNTS RECEIVABLE COORDINATOR [address] [place] [address] Health Maintenance Due Date Last [...] 01/30/2014 Discussion re Starting/Frequency of Mammograms 2019 Medicare Initial AWV [id number] 01/01/2022 Cologuard 11/23/2024 Colonoscopy 11/23/2024 Colorectal Cancer Screening 11/23/2024 Immunochemical Fecal Occult Blood 11/23/2024 Influenza Immunization (#1) 01/01/202505/04, 03/05/2020, 03/06/2019, Additional history exists SARS-COV-2 Immunization [...] complete this topic Insurance MEDICARE C AETNA [facility] Advance Directives Documents on File Type Date Recorded Patient Department Store Door Greeter Expl anation [place] Surrogate Physician Appointment 05/26/2024 10:54 AM [facility], 05/26/2024 * Full Code (Latest Code Status on File) Date Activated Date Inactivated Comments 05/26/2024 4:58 AM CPR-Full Treat ment: FULL ARREST: Attempt Resuscitation/CPR wit intubation and mechanical ventilation. PRE-ARREST: Use entire range of life support measures to stabilize the patient. Care Teams Grocery Shopper Relationship Specialty Start Date End Date Selina Burrell APRN, ACCOUNTS RECEIVABLE COORDINATOR [address] [place] [address] PCP - General Family Medicine 05/25/24 Maria Dolores Skelton MD [address] [address] Consulting Physician Cardiology 06/19/24 Rehana Moss APRN, ACCOUNTS RECEIVABLE COORDINATOR [address] [place] [address] Nurse Practitioner Cardiology 11/01/24
--- OUTSIDE RECORDS SUMMARY | 2025-03-11 18:06 | XMS_ITS | Clinical Summary ---
Author Organization [facility] Address [address] [facility] [address] [facility] [address] [place] [address] Care Team Providers Care Transactional Attorney Name Role Phone Unavailable Primary Care Provider Unavailabl e Source Comments [facility],non-owned Affiliates and Associated Physician Practices is amultiple site organization consisting of ambulatory clinics and hospital sitesin [place], [place], [place] and [place]. This disclosure is being madepursuant to the Care Everywhere program and may not contain all information available regarding this patient. Last updated 18.[facility] Allergies Active Allergy Reactions Criticality Noted Date [...] office. (Should start 10/30/13.) Elyse is the doorperson @ Dr. 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) Comment: NEGATIVE FOR INTRAEPITHELIAL LESION AND MALIGNANCY. CELLULAR CHANGES ASSOCIATED WITH INFLAMMATION ARE PRESENT. Specimen Adequacy Comment 017 6:10 PM CDT [facility] ([facility]) Comment: Satisfactory for evaluation. Endocervical and/or squamous metaplastic cells (endocervical component) are present. Performed by Comment 01/14/2017 6:10 PM CDT [facility] ([facility]) Comment:Lilly Ponce Shirt Ironer (ASCP) Comment . 01/14/2017 6:10 PM CDT [facility] ([facility]) Note Comment 01/14/2017 6:10 PM CDT [facility] ([facility]) Comment: The Pap smear is a screening test designed to aid in the detection of premalignant and malignant conditions of the uterine cervix. It is not a diagnostic procedure and should not be used as the sole means of detecting cervical cancer. Both false-positive and false-negative reports do occur. Human papillomavirus High Risk Negative Negative 01/14/2017 6:10 PM CDT [facility] ([facility]) Comment: This high-risk HPV test detects thirteen high-risk types (16/18/31/33/35/39/45/51/52/56/58/59/68) without differentiation. Pathology/Cytolo gy MICROSCOPIC CYTOLOGIC EXAMINATION OF SMEAR OF SPECIMEN FROM FEMALE GENITAL TRACT PREPARED USING PAPANICOLAOU TECHNIQUE / Unknown Collection / Unknown 01/08/2017 3:53 PM CDT 01/08/2017 3:56 PM CDT [facility] ([facility]) - 01/14/2017 6:10 PM CDT Performed at: 01 - [address] [id number] Middleware Consultant: Marjorie Scott MD, Phone: [phone] Performed at: 02 - [address] [id number] Middleware Consultant: Marjorie Scott MD, Phone: [phone] Specimen Comment: Source.............Cervix Specimen Comment: LMP / Prev Treat...[id number];None Specimen Comment: No. of containers..01 ThinPrep Vial Mulugeta Kaba MD LAB - PATHOLOGY/CYTOLOGY ORD ERABLES Final Result [facility]) [address] [place] [address] from Last 3 Months or Most Recently Relevant to Health Maintenance Insurance MEDICAID - [place] MED[place]ARE MEDICARE MEDICAID - [facility] Advance Directives * Full Code (Latest Code Status on File) Date Activated Date Inactivated Comments 01/27/2014 4:34 PM 01/30/2014 8:10 PM * Full Code Date Activated Date Inactivated Comments 10/13/2013 3:55 PM 10/14/2013 2:49 PM * Full Code Date Activated Date Inactivated Comments 10/12/2013 9:17 PM 10/13/2013 3:55 PM
--- OUTSIDE RECORDS SUMMARY | 2025-03-11 18:06 | XMS_ITS | Clinical Summary ---
Author Organization [facility] Address [address] [place] [address] Care Team Providers Care Tong Carrier Name Role Phone Unavailable Primary Care Provider [...] Td or Tdap) 01/23/2024 01/22/2014 PHQ-2 (Physician [place]) 05/03/2024 COVID-19 Vaccine (1 - 2024-2 6 [...]
[2025-03-11 19:10] VITALS: BP 150/90; PULSE 98; RESP 16; O2SAT 99
== END 2025-03-11 19:15 | disposition home or self-care (01) ==
PROVIDERS: Emergency Provider Emergency Medicine; PCP Emergency Medicine
DX: S09.90XA Unspecified injury of head, initial encounter (principal); W22.03XA Walked into furniture, initial encounter; G43.909 Migraine, unspecified, not intractable, without status migrainosus; F41.8 Other specified anxiety disorders
CPT/HCPCS: 70450; 96361; 96374; 96375; 99284; A9270; J1100; J1200; J2250; J7120